=== PATIENT | female | born 1970 | race Caucasian/White ===

== ENCOUNTER 2020-11-26 08:03 | Outpatient (CLI) | payer OTHER, SELFPAY ==
--- NOTE | ~2020-11-26 | US_ITS ---
EXAMINATION: US pelvic complete w TV DATE: 11/26/2020 08:48 INDICATION: Menorrhagia TECHNIQUE: Multiple transabdominal and endovaginal sonographic images of the pelvis were obtained. COMPARISON: 06/11/2016 FINDINGS: The uterus measures 10.7 x 5.7 x 7.6 cm. There is a 3.1 x 3.4 x 3.3 cm isoechoic mass in th e posterior uterine body which has the appearance of an intramural fibroid. The endometrial complex m easures 8 mm. The left ovary is not visualized however no left adnexal abnormality is seen. The right ovary measures 3.8 x 2.4 x 2.2 cm. There is normal vascular flow in the right ovary. There is a trac e amount of likely physiologic free fluid in the pelvis. IMPRESSION: 1. Small uterine fibroid without significant change. Reviewed, dictated and finalized at location B.
== END 2020-11-26 08:04 | disposition home or self-care (01) ==
PROVIDERS: Visit Provider Obstetrics & Gynecology
DX: N92.0 Excessive and frequent menstruation with regular cycle (principal); D25.9 Leiomyoma of uterus, unspecified
CPT/HCPCS: 76830; 76856

== ENCOUNTER 2021-01-01 06:51 | Outpatient (CLI) | payer OTHER, SELFPAY ==
[2021-01-01 07:52] LABS: Alanine Aminotransferase 160 U/L (4-35); Albumin Level 4.4 g/dL (3.5-5.1); Alkaline Phosphatase 116 U/L (38-126); Anion Gap 3 mmol/L (8-16); Aspartate Amino Transferase 52 U/L (14-36); Bilirubin,Total 0.6 mg/dL (0.2-1.3); Blood Urea Nitrogen 9 mg/dL (7-17); Calcium 9.1 mg/dL (8.4-10.2); Carbon Dioxide 28 mmol/L (22-30); Chloride 109 mmol/L (98-107); Estimated Glomerular Filt Rate > 60; Glucose 95 mg/dL (65-110); Sodium 140 mmol/L (137-145)
[2021-01-04 04:38] LABS: Insulin Level Total 2.4 uIU/mL (<=19.6)
== END 2021-01-01 06:52 | disposition home or self-care (01) ==
DX: E66.01 Morbid (severe) obesity due to excess calories (principal); E63.9 Nutritional deficiency, unspecified; E88.9 Metabolic disorder, unspecified; Z83.3 Family history of diabetes mellitus
CPT/HCPCS: 36415; 80053; 83036; 83525

== ENCOUNTER 2021-01-27 15:14 | Outpatient (CLI) | payer OTHER, SELFPAY ==
--- NOTE | 2021-01-27 15:15 | ECG_ITS ---
Measurements Intervals [place] Rate: 77 P: 50 VA: 149 QRS: 21 QRSD: 94 T: 17 QT: 364 QTc: 413 Interpretive Statements SINUS RHYTHM WITH SINUS ARRHYTHMIA NORMAL ECG Electronically Signed On 01-27-2021 16:22:13 [employer]AG [employer] by Ramos Castillo D.O.
[2021-01-27 15:55] LABS: Hemoglobin 13.1 g/dL (12.0-15.0)
== END 2021-01-27 15:15 | disposition home or self-care (01) ==
LOC: ANHSURGERY 15:16
PROVIDERS: Visit Provider Obstetrics & Gynecology
DX: D25.9 Leiomyoma of uterus, unspecified (principal); I49.9 Cardiac arrhythmia, unspecified; Z01.818 Encounter for other preprocedural examination
CPT/HCPCS: 36415; 85014; 85018; 86850; 86900; 86901; 93005

== ENCOUNTER 2021-01-29 00:33 | Day surgery (SDC) | payer OTHER, SELFPAY ==
[2021-01-27 14:35] VITALS: BMI 31.7
--- NOTE | 2021-01-27 15:15 | PC.NURSE ---
Addendum entered by Amie West RN 01/27/21 15:20: WE WILL CALL YOU 01/28/21 AFTERNOON IF YOUR SURGERY TIME IS ADJUSTED!!! Original Note: Report to the Outpatient Waiting Room, entrance under the green pavilion located off [facility], at time __1000 on date _01/29/21 . OR Time: _1200 . - You and your visitor will be asked a series of questions to screen for COVID 19 for your protection. - A mask is required within the hospital. - Only one visitor is allowed at this time. Patient visitors will be guided where to wait when not with patient. Preoperative COVID Testing Requirements: No COVID Test needed if: (proof is required; if not received patient will have Rapid Test prior to entry)PLEASE BRING COPY OF VACCINATION CARD! - Patient has received COVID Vaccine at least 14 days prior to procedure date or - Patient has positive COVID test result within last 90 days of surgery date. COVID Test needed if above criteria is not met If not COVID vaccinated a COVID test must be conducted within 72 hours of surgery and patient is asked to isolate self from time of testing until procedure. You will go to the [facility] for your COVID testing. The [facility] is located at the corner of [address] [facility]. You will only be called if COVID results are positive and your surgeon may reschedule your elective surgery date. Patients may have clear liquids (water, carbonated beverages, clear teas, apple juice) until 3 hours prior to surgery with a maximum of 20 ounces. - No food from midnight until time of surgery - Infants may have breast milk until 4 hours before surgery, infant formula 6 hours prior to surgery. - Children will be allowed to drink immediately following surgery. If applicable, please bring a bottle or sippy cup to assist with drinking. Juice, water, soda, and popsicles are readily available. For infants on formula, please bring formula the day of surgery. Pacifiers are allowed. Take the following medications with a SIP of water the morning of surgery: __DULOXETINE, ALBUTEROL MDI, _ANXIETY MED IF YOU DESIRE Medications to discontinue per physician _SUPPLEMENTS AND CELEBREX Date to take last dose TODAY 01/27/21 Please no make-up, nail iranian, hairspray, perfume, deodorant, or body powder the day of surgery. No jewelry (including any body piercings) or valuables the day of surgery, leave them at home. Please take a shower or bath the night before, or the morning of, surgery with an antibacterial soap. Wear comfortable, loose fitting clothing. Children are encouraged to wear pajamas. - Jewelry must be removed prior to entering the operating room. Rings and piercings that are not removed may be cut off. - The hospital will not accept responsibility for valuables. - Please leave all valuables, including medications, at home the day of surgery. If you are going home after surgery, a licensed tow truck driver must drive you home. - NO public transportation without another adult. - We recommend that an adult stay with you for 24 hours following discharge. - We also recommend that you do not drive, make important decision, drink alcoholic beverages, or take any drugs that were not prescribed by your health care provider for at least 24 hours after your discharge time. For Pediatric surgeries, we recommend two adults accompany the child home (only one inside the building at this time). Follow any additional instructions given to you from your surgeon. Telephone instructions given to DRAKE and asked if any additional questions and then verbalized understanding. Patient advised to call surgeon office or pre surgery nurse liaison [phone] if any additional questions.
[2021-01-27 15:30] VITALS: BMI 31.4
[2021-01-29] VITALS (9 sets, daily range): BP systolic 110–142; BP diastolic 57–96; PULSE 68–95; RESP 13–18; TEMP 36.1–37; O2SAT 94–100
--- NOTE | 2021-01-29 10:29 | WPDANESEPPF ---
Anes - Initial Pre Proc Eval Procedure: Operation Date: 01/29/21 12:00 Proposed Procedures p Robotic Assisted Total Vaginal Hysterectomy with Bilateral Salpingectomy - Jose Adan MD Date/Time: 01/29/21 10:29 Surgeon: Jose Adan MD Pre Op Diagnosis: heavy bleeding, fibroids Patient Data Age: 50 Gender: F Height: 1.7 m Weight: 91 kg Allergies Allergy/AdvReac Type Severity Reaction Status Date / Time oxycodone Allergy Mild ITCHY SKIN Verified 01/27/21 15:33 adhesive Allergy Unknown BLISTERS; Verified 01/27/21 15:33 ITCHING ibuprofen Allergy Unknown Other Verified 01/27/21 15:33 Nut Tree Allergy Unknown MOUTH Uncoded 01/27/21 15:33 ITCHING WITH PECANS AND WALNUTS Home Medications Medication Instructions Recorded Confirmed Type celecoxib 100 mg capsule 100 mg PO DAILY cap 12/18/20 01/27/21 History cholecalciferol (vitamin D3) 2,000 mg PO DAILY 12/18/20 01/27/21 History duloxetine 60 mg capsule,delayed 60 mg PO DAILY 12/18/20 01/27/21 History release lorazepam 1 mg tablet 1 mg PO HS tablet 12/18/20 01/27/21 History mecobalamin (vitamin B12) 1,000 mcg PO DAILY 12/18/20 01/27/21 History multivitamin 1 tablet PO DAILY 12/18/20 01/27/21 History albuterol sulfate 2 puff INHALATION DAILY PRN 01/27/21 01/27/21 History calcium carb-mag ox-zinc gluc 1 tablet PO DAILY 01/27/21 01/27/21 History ferrous sulfate [Iron (ferrous 325 mg PO DAILY 01/27/21 01/27/21 History sulfate)] melatonin 5 mg SUBLINGUAL HS 01/27/21 01/27/21 History Patient hx anesthesia problems: none Family hx anesthesia problems: none Results Review: All pre-operative results and documents have been reviewed as part of the pre-operative evaluation. [facility] Past Medical History Medical History (Updated 01/29/21 @ 10:30 by Minesh Mcadams MD) Anxiety Asthma Surgical History Surgical History History of abdominoplasty 06/2015 History of section 02/22/98, 02/24/02 History of gastric surgery lap 02/2013 History of knee surgery R knee lateral release with scope 12/2008, L knee lateral release with scope 11/2009 History of laparoscopic cholecystectomy 11/2002 History of surgery uterine ablation 07/2016 Family History Family History Father Family history of congenital heart disease Family history of lung cancer Patient's father is Grandparent Family history of congenital heart disease Family history of osteoarthritis Other Family history of arthritis Family history of heart disease in male family member before age 55 Family history of kidney disease Hypertension Social History Social History Smoking status: Never smoker Alcohol intake: never Substance use: never Substance use type: does not use Living arrangements: with family Spiritual care concerns: No Anes - Eval Final PreProcedure Day of Procedure 01/29/21 10:29 Patient weight: obese Heart: regular rate and rhythm Lungs: clear to auscultation Airway: Mallampati scale class II Neurological: alert and oriented Last oral intake: >/= 8 hours ASA classification: III Emergent: no Anesthetic plan: proceed Anesthesia type and monitoring: general ETT and standard monitoring Results Review: All pre-operative results and documents have been reviewed as part of the pre-operative evaluation. Informed Consent: The patient's anesthetic plan and its attendant risks and benefits were discussed with the patient/family/POA. Questions were solicited and answers provided to the satisfaction of the patient/family/POA.
[2021-01-29] MEDS: LACTATED RINGERS 1,000 ML 30 ML IV CONT ×3 (10:40→14:33)
[2021-01-29] MEDS: ACETAMINOPHEN 500 MG TABLET 1000 MG PO (10:46)
[2021-01-29] MEDS: KETOROLAC 15 MG/ML VIAL (*BKC) IV PUSH (10:54)
--- NOTE | 2021-01-29 11:39 | PM.IMHP ---
H&P: HPI History of Present Illness Date/Time: 01/29/21 11:39 50 y/o who has had an endometrial ablation, but continues to have heavy, painful menses nonetheless. She has a 3.3 cm myoma noted on ultrasound. She desires definitive management with hysterectomy. Chief Complaint: Heavy periods Review of Systems Review of Systems: All systems reviewed & are unremarkable except as noted in HPI and below PMFSH Past Medical History Medical History Anxiety Asthma Surgical History Surgical History History of abdominoplasty 06/2015 History of section 02/22/98, 02/24/02 History of gastric surgery lap 02/2013 History of knee surgery R knee lateral release with scope 12/2008, L knee lateral release with scope 11/2009 History of laparoscopic cholecystectomy 11/2002 History of surgery uterine ablation 07/2016 Family History Family History Father Family history of congenital heart disease Family history of lung cancer Patient's father is Grandparent Family history of congenital heart disease Family history of osteoarthritis Other Family history of arthritis Family history of heart disease in male family member before age 55 Family history of kidney disease Hypertension Social History Social History Smoking status: Never smoker Alcohol intake: never Substance use: never Substance use type: does not use Living arrangements: with family Spiritual care concerns: No Meds Home Medications and Allergies Home Medications Medication Instructions Recorded Confirmed Type celecoxib 100 mg capsule 100 mg PO DAILY cap 12/18/20 01/29/21 History cholecalciferol (vitamin D3) 2,000 mg PO DAILY 12/18/20 01/29/21 History duloxetine 60 mg capsule,delayed 60 mg PO DAILY 12/18/20 01/29/21 History release lorazepam 1 mg tablet 1 mg PO HS tablet 12/18/20 01/29/21 History mecobalamin (vitamin B12) 1,000 mcg PO DAILY 12/18/20 01/29/21 History multivitamin 1 tablet PO DAILY 12/18/20 01/29/21 History albuterol sulfate 2 puff INHALATION DAILY PRN 01/27/21 01/29/21 History calcium carb-mag ox-zinc gluc 1 tablet PO DAILY 01/27/21 01/29/21 History ferrous sulfate [Iron (ferrous 325 mg PO DAILY 01/27/21 01/29/21 History sulfate)] melatonin 5 mg SUBLINGUAL HS 01/27/21 01/29/21 History Allergies Allergy/AdvReac Type Severity Reaction Status Date / Time oxycodone Allergy Mild ITCHY SKIN Verified 01/29/21 11:02 adhesive Allergy Unknown BLISTERS; Verified 01/29/21 11:02 ITCHING ibuprofen Allergy Unknown Other Verified 01/29/21 11:02 Nut Tree Allergy Unknown MOUTH Uncoded 01/29/21 11:02 ITCHING WITH PECANS AND WALNUTS Exam Const: Orientation/consciousness: patient oriented x3 Other: Well-developed, well-nourished female in no acute distress. Neck: Thyroid: thyroid normal Lymphatic: no lymphadenopathy noted (in neck, axilla or inguinal nodes) Resp: Effort & Inspection: normal respiratory effort Auscultation: clear to auscultation bilaterally Cardio: Rate: regular rate Rhythm: regular rhythm Heart sounds: S1 normal heart sound present and S2 normal heart sound present GI: Other: ABD: Soft, nontender, nondistended. No guarding or rebound tenderness. No hepatosplenomegaly. : General: Yes no CVA tenderness Other: External genitalia: normal female hair distribution, without lesion. Urethral meatus: no lesion, non prolapsed. Bladder: no mass, nontender Vagina: well-estrogenized, without lesion or discharge. No cystocele or rectocele. Cervix: no lesion or discharge. Uterus: small, anteverted, freely mobile, nontender Adnexa: no mass or tenderness. Anus/perineum: no lesions, nontender Back/Spine/Pelvis: Back: no CVA tend
--- NOTE | 2021-01-29 12:00 | WPDHPUPDATE1 ---
History and Physical Update Update Date/Time: 01/29/21 12:00 History and Physical has been reviewed, including an updated exam of the patient. There are NO changes in the patient's condition. Risks, benefits, and alternatives have been discussed and questions answered. Patient agrees to proceed with procedure.
[2021-01-29] MEDS: ceFAZolin 2 GM/D5W 50 ML 2 GM/50 ML BAG IVPB (12:05)
--- NOTE | 2021-01-29 14:20 | P.OP_ITS ---
Procedure Note - Detailed Date of Procedure 01/29/21 Pre-op Diagnosis Menometrorrhagia Dysmenorrhea Fibroid uterus Post-op Diagnosis same Procedure Performed Robotic assisted total vaginal hysterectomy, biopsy of posterior cul-de-sac, lysis of adhesions Surgeon Jose Adan MD Anesthesia general Findings Enlarged, fibroid uterus. Normal-appearing tubes and ovaries. Adhesions between omentum and anterior abdominal wall, dense adhesions between bladder and lower uterine segment. Multiple purple nodules suggestive of endometriosis implants in the posterior cul-de-sac. Description of Procedure The patient was taken to the operating room where general endotracheal anesthesia was administered. She was prepared and draped in the usual sterile fashion in the dorsal lithotomy position. The bladder was drained with Krueger catheter. The cervix was visualized and the anterior lip was grasped using a single-tooth tenaculum. The cervix was gently dilated using Hegar dilators. The RANDY 2 uterine manipulator was then placed and the tenaculum was removed. Gloves were changed and attention was turned to the abdomen. A supraumbilical skin incision was made with the scalpel. The Veress needle was advanced and pneumoperitoneum was administered using carbon dioxide gas. The bladeless trocar was then advanced. Intraperitoneal placement was confirmed using the laparoscope. Lateral ports and an orthopedic physician assistant port were all placed using bladeless trocars under direct laparoscopic visualization. She was placed in Trendelenburg position and the patient cart was docked. I assumed the console. The ureters were visualized bilaterally. The round ligament on the right was divided. The Fallopian tube was dissected off the ovary. The uteroovarian ligament was divided. The broad ligament was divided, skeletonizing the uterine artery on the right. The left side was similarly dissected. The bladder was meticulously dissected off the lower uterine segment and cervix. Colpotomy was performed circumferentially. The specimen was removed and passed off to be sent to pathology. An endometriosis nodule in the posterior cul-de-sac was sharply excised. The vaginal cuff was then reapproximated using 0 Vicryl in interrupted [id number] fashion. The pelvis was irrigated copiously using warmed normal saline. Rigorous hemostasis was assured. HemaDerm was applied to the vaginal cuff. The pedicles were inspected once again. The ports were then withdrawn and the gas was allowed to escape. The skin incisions were reapproximated using 4 0 Monocryl in interrupted subcuticular fashion. Dermaflex was applied externally. Sponge, lap, needle and instrument counts were correct. The patient was awakened and taken to the recovery room in stable condition. I was present and scrubbed through the entire procedure. Implants None Estimated Blood Loss 10 Drains Yes (krueger) Packing No Pathology yes (Uterus, cervix, bilateral Fallopian tubes, biopsy of peritoneum of posterior cul de sac) Complications None Condition stable Disposition PACU
[2021-01-29] MEDS: fentaNYL CITRATE INJ (*CRX) 100 MCG/2 ML VIAL 25 MCG IV PUSH ×4 (15:05→15:25)
--- NOTE | 2021-01-29 15:57 | PC.NURSE ---
This patient, Ofelia Graff, was received from PACU on 01/29/21 at 1557 per bed. Patient/family oriented to unit policies and routines
[2021-01-29] MEDS: DEXTROSE 5%/0.45% SOD CHL 1,000 ML 125 ML IV CONT (16:29)
[2021-01-29] MEDS: MORPHINE SULFATE (*CRX) 4 MG/ML INJ IV PUSH (16:30)
[2021-01-29] MEDS: SIMETHICONE 80 MG TAB.CHEW PO ×2 (19:17→23:35)
[2021-01-29] MEDS: KETOROLAC 30 MG/ML VIAL (*BKC) IV PUSH (19:18)
[2021-01-29] MEDS: MAG HYDROX/AL HYDROX/SIMETH 30 ML UDC PO (19:23)
[2021-01-29] MEDS: HYDROcodone/acetaminophen (*CRX) 5-325 MG TABLET 1 TAB PO ×2 (19:23→23:35)
[2021-01-29] MEDS: LORazepam (*CRX) 0.5 MG TABLET 1 MG PO (20:11)
[2021-01-29] MEDS: ENOXAPARIN 40 MG/0.4 ML SYRINGE SUB-Q (20:12)
[2021-01-30] MEDS: KETOROLAC 30 MG/ML VIAL (*BKC) IV PUSH (02:02)
[2021-01-30] MEDS: SIMETHICONE 80 MG TAB.CHEW PO ×4 (02:02→09:42)
[2021-01-30] MEDS: MAG HYDROX/AL HYDROX/SIMETH 30 ML UDC PO (02:39)
[2021-01-30] MEDS: HYDROcodone/acetaminophen (*CRX) 10-325 MG TABLET 1 TAB PO ×2 (02:39→05:44)
[2021-01-30 04:10] VITALS: BP 107/57; PULSE 72; RESP 16; TEMP 37.2; O2SAT 96
[2021-01-30 05:46] LABS: Basophils Absolute Auto 0.1 K/mm3 (0.0-0.1); Basophils Percent Auto 0.6 % (0.2-1.2); Eosinophils Absolute Auto 0.1 K/mm3 (0-0.3); Eosinophils Percent Auto 0.9 % (0-4.4); Hematocrit 33.4 % (37.0-47.0); Hemoglobin 11.3 g/dL (12.0-15.0); Immature Granulocyte Absolute 0.02 K/mm3 (0.00-0.031); Immature Granulocyte Percent A 0.2 % (0-0.5); Lymphocytes Absolute Auto 1.49 K/mm3 (0.9-3.2); Lymphocytes Percent Auto 17.5 % (18.3-44.2); Mean Corpuscular HGB Conc 33.8 g/dl (32-36); Mean Corpuscular Hemoglobin 31.4 pg (26-34); Mean Corpuscular Volume 92.8 fl (80-100); Mean Platelet Volume 9.3 fl (7.4-10.4); Monocytes Absolute Auto 0.8 K/mm3 (0.1-0.6); Monocytes Percent Auto 9.6 % (2.6-8.5); Neutrophils Absolute Auto 6.1 K/mm3 (1.3-6.7); Neutrophils Percent Auto 71.2 % (45.5-73.1); Platelet Count Result 220 k/mm3 (150-375); Red Cell Distribution Width 12.3 % (11.5-14.5); White Blood Count 8.5 K/mm3 (4.5-10.0)
[2021-01-30] MEDS: DULoxetine HCL 60 MG CAPSULE.DR PO (07:31)
--- NOTE | 2021-01-30 08:10 | WPDANESPN ---
Anes - Prog Note Post-Op Date/Time: 01/30/21 08:10 Cardiovascular status: normal Respiratory status: normal Airway patency: baseline Mental status: baseline Post-Op hydration status: normal Vital Signs: Last Vital Signs Temp 37.2 C 01/30/21 04:10 Pulse 72 01/30/21 04:10 Resp 16 01/30/21 04:10 BP 107/57 L 01/30/21 04:10 Pulse Ox 96 01/30/21 04:10 Pain Score (VAS): 0 I/O: Intake & Output 01/29/21 01/30/21 01/30/21 23:59 07:59 15:59 Intake Total 400 600 Output Total 950 1150 Balance -550 -550 Laboratory Tests 01/30/21 04:04 01/30/21 04:04 WBC 8.5 RBC 3.60 L Hgb 11.3 L Hct 33.4 L MCV 92.8 MCH 31.4 MCHC 33.8 RDW 12.3 Plt Count 220 MPV 9.3 Immature Gran % (Auto) 0.2 Neut % (Auto) 71.2 Lymph % (Auto) 17.5 L [place] % (Auto) 9.6 H Eos % (Auto) 0.9 Baso % (Auto) 0.6 Lymph # (Auto) 1.49 [place] # (Auto) 0.8 H Eos # (Auto) 0.1 Baso # (Auto) 0.1 Abs Immat Gran (auto) 0.02 Absolute Neuts (auto) 6.1 Absolute Nucleated RBC 0.0 Nucleated RBC % 0.0 Post-procedural complaints: none Patient Feedback: Patient satisfied with anesthetic care.
[2021-01-30] MEDS: HYDROcodone/acetaminophen (*CRX) 5-325 MG TABLET 1 TAB PO ×2 (08:42→09:42)
[2021-01-30 09:05] VITALS: BP 145/87; PULSE 71; RESP 16; TEMP 37.6; O2SAT 97
--- NOTE | 2021-01-30 09:05 | PM.GYNPNOP ---
LINOLEUM FLOOR LAYER - A/P Postoperative Procedures: Procedures Operation Date: 01/29/21 12:00 Actual Procedure Side Surgeon p Robotic Assisted Total Vaginal Hysterectomy with Bilateral Salpingectomy Bilateral Jose Aadn MD A: POD#1, doing well. P: Home to f/u 2 weeks. Time Spent With Patient Time with patient: less than 15 minutes LINOLEUM FLOOR LAYER- PN:Subj Post-Op Subjective Date/time seen: 01/30/21 09:05 Interval history: Pain OK. Tolerating diet. Voiding. Would like to go home. Exam Narrative: AVSS I/O OK ABD soft, nontender. Incisions c/d/i. EXT nontender LINOLEUM FLOOR LAYER - PN: Obj Data Vital Signs Vital Signs: Vital Signs - 24 hr 01/29/21 14:33 01/29/21 14:45 01/29/21 15:00 Temperature 36.1 C L Pulse Rate 74 95 88 Respiratory Rate 13 16 18 Blood Pressure 110/57 L 131/96 H 122/57 L Pulse Oximetry 100 99 94 01/29/21 15:15 01/29/21 15:30 01/29/21 15:45 Temperature Pulse Rate 75 73 87 Respiratory Rate 14 14 16 Blood Pressure 124/58 L 131/71 118/64 Pulse Oximetry 94 97 96 01/29/21 17:33 01/29/21 19:30 01/29/21 23:30 Temperature 36.2 C L 36.4 C 37.0 C Pulse Rate 77 68 78 Respiratory Rate 18 16 16 Blood Pressure 116/64 142/81 H 122/72 Pulse Oximetry 94 100 98 01/30/21 04:10 Temperature 37.2 C Pulse Rate 72 Respiratory Rate 16 Blood Pressure 107/57 L Pulse Oximetry 96 Intake/Output Intake/Output: Intake & Output 01/27/21 01/28/21 01/29/21 01/30/21 23:59 23:59 23:59 23:59 Intake Total 1800 600 Output Total 950 1150 Balance 850 -550 Meds/Results Medications: Active Medications Generic Name Dose Route Start Last Admin Trade Name Freq PRN Reason Stop Dose Admin Hydrocodone Bitart/Acetaminophen 1 tab 01/29/21 15:50 01/30/21 08:42 Hydrocodone/Acetaminophen (*Crx) 5-325 Mg Tablet PO 1 tab Q3H PRN Administration Pain Rated 5 or Less Hydrocodone Bitart/Acetaminophen 1 tab 01/29/21 15:50 01/30/21 05:44 Hydrocodone/Acetaminophen (*Crx) 10-325 Mg Tablet PO 1 tab Q3H PRN Administration Pain Rated 6 or Greater Al Hydrox/Mg Hydrox/Simethicone 30 ml 01/29/21 17:52 01/30/21 02:39 Mag Hydrox/Al Hydrox/Simeth 30 Ml Udc PO 30 ml Q6H PRN Administration Indigestion Albuterol 2 puff 01/29/21 15:50 Albuterol Sulfate (*Sp) Aerosol 1 Puff INHALATION DAILY PRN Shortness Of Breath Duloxetine HCl 60 mg 01/30/21 09:00 01/30/21 07:31 Duloxetine Hcl 60 Mg Capsule.Dr PO 60 mg DAILY JAY Administration Enoxaparin Sodium 40 mg 01/29/21 21:00 01/29/21 20:12 Enoxaparin 40 Mg/0.4 Ml Syringe SUB-Q 40 mg HS JAY Administration Dextrose/Sodium Chloride 1,000 mls @ 125 mls/hr 01/29/21 15:50 01/30/21 01:20 Dextrose 5% Sodium Chloride 0.45% IV CONT Not Given .Q8H JAY Ketorolac Tromethamine 30 mg 01/29/21 18:19 01/30/21 02:02 Ketorolac 30 Mg/Ml Vial (*Bkc) IV PUSH 30 mg Q6H PRN Administration Pain Rated 4-6 Lorazepam 1 mg 01/29/21 21:00 01/29/21 20:11 Lorazepam (*Crx) 0.5 Mg Tablet PO 1 mg HS JAY Administration Metoclopramide HCl 10 mg 01/29/21 15:50 Metoclopramide Hcl Inj 10 Mg/2 Ml Vial IV PUSH Q6H PRN Nausea Morphine Sulfate 4 mg 01/29/21 15:50 01/29/21 16:30 Morphine Sulfate (*Crx) 4 Mg/Ml Inj IV PUSH 4 mg Q4H PRN Administration Pain Rated 7-10 Naloxone HCl 0.1 mg 01/29/21 15:50 Naloxone Hcl 0.4 Mg/Ml Vial IV PUSH Q2M PRN Respiratory rate less than 10 Ondansetron HCl 4 mg 01/29/21 15:50 Ondansetron Inj 4 Mg/2 Ml Vial IV PUSH Q6H PRN Nausea Simethicone 80 mg 01/29/21 15:50 01/30/21 07:30 Simethicone 80 Mg Tab.Chew PO 80 mg Q2H PRN Administration Gas Labs CBC & Chem 7: 01/30/21 04:04 Labs: Laboratory Results - last 24 hr 01/30/21 04:04 WBC 8.5 RBC 3.60 L Hgb 11.3 L Hct 33.4 L MCV 92.8 MCH 31.4 MCHC 33.8 RDW 12.3 Plt Count 220 MPV 9.3 Immature Gran % (Auto) 0.2 Neut
--- NOTE | 2021-01-30 09:06 | PM.DS ---
DS: Admitting Diagnosis Discharge Date 01/30/21 Admitting Diagnosis Menometrorrhagia Dysmenorrhea Fibroid uterus DS: Discharge Diagnosis Discharge Diagnosis (1) Fibroid uterus: Code(s): D25.9 - Leiomyoma of uterus, unspecified Status: Acute (2) Dysmenorrhea: Code(s): N94.6 - Dysmenorrhea, unspecified Status: Acute (3) Menometrorrhagia: Code(s): N92.1 - Excessive and frequent menstruation with irregular cycle Status: Acute DS: Summary Hospital Course Hospital Course: Admitted on date of scheduled surgery. Please see op note. Doing well on POD1 and able to go home. Time Spent with Patient Time attestation: Total time spent providing and/or coordinating discharge services: DS: Data Data Completed and Pending Pending studies at discharge: Pending at discharge 01/29/21 13:52 Surgical [PTH] Routine Labs on day of discharge: Labs from last 24 hours 01/30/21 04:04 WBC 8.5 RBC 3.60 L Hgb 11.3 L Hct 33.4 L MCV 92.8 MCH 31.4 MCHC 33.8 RDW 12.3 Plt Count 220 MPV 9.3 Immature Gran % (Auto) 0.2 Neut % (Auto) 71.2 Lymph % (Auto) 17.5 L [place] % (Auto) 9.6 H Eos % (Auto) 0.9 Baso % (Auto) 0.6 Lymph # (Auto) 1.49 [place] # (Auto) 0.8 H Eos # (Auto) 0.1 Baso # (Auto) 0.1 Abs Immat Gran (auto) 0.02 Absolute Neuts (auto) 6.1 Absolute Nucleated RBC 0.0 Nucleated RBC % 0.0 Discharge Plan Discharge Patient Disposition: Home, Self-Care Discharge Instructions: Call or return if temperature above 100.4? F, increased abdominal pain, increased vaginal bleeding or any new problems. Stand Alone Forms: General Discharge Instructions Follow-up/Referrals: Jose Adan MD [Physician] - 2 Weeks Discharge Medications: New hydrocodone-acetaminophen 5-325 mg tablet 1 - 2 tablet PO Q6H PRN (Reason: pain) Qty: 30 RF: 0 Continued duloxetine 60 mg capsule,delayed release(DR/EC) 60 mg PO DAILY RF: 0 celecoxib [Celebrex] 100 mg capsule 100 mg PO DAILY RF: 0 lorazepam 1 mg tablet 1 mg PO HS RF: 0 multivitamin Tablet 1 tablet PO DAILY RF: 0 cholecalciferol (vitamin D3) 2,000 mg PO DAILY RF: 0 mecobalamin (vitamin B12) 1,000 mcg PO DAILY RF: 0 melatonin 5 mg Tablet, Sublingual 5 mg SUBLINGUAL HS RF: 0 calcium carb-mag ox-zinc gluc 333-133-5 mg Tablet 1 tablet PO DAILY RF: 0 albuterol sulfate 90 mcg/actuation HFA aerosol inhaler 2 puff INHALATION DAILY PRN (Reason: SOB) RF: 0 Discontinued ferrous sulfate [Iron (ferrous sulfate)] 325 mg (65 mg iron) Tablet 325 mg PO DAILY RF: 0
== END 2021-01-30 11:05 | disposition home or self-care (01) ==
LOC: ANHSURGERY 10:05 → ANHOB2 17:20
PROVIDERS: Visit Provider Obstetrics & Gynecology
PROC: (CPT 58552; principal; 2021-01-29 12:00)
DX: N92.1 Excessive and frequent menstruation with irregular cycle (principal); N94.6 Dysmenorrhea, unspecified; N73.6 Female pelvic peritoneal adhesions (postinfective); N80.3 Endometriosis of pelvic peritoneum; D25.1 Intramural leiomyoma of uterus; J45.909 Unspecified asthma, uncomplicated; F41.9 Anxiety disorder, unspecified; Z79.51 Long term (current) use of inhaled steroids; E66.9 Obesity, unspecified; Z68.31 Body mass index [BMI] 31.0-31.9, adult
CPT/HCPCS: 58552; S2900; 36415; 85025; 88305; 88307; 99199; A9270; J0330; J0690; J1100; J1170; J1650; J1885; J2250; J2270; J2704; J2710; J3010; J7030; J7120

== ENCOUNTER → 2021-02-12 13:52 | Outpatient (REF) | payer OTHER, SELFPAY | LOC: ANHLAB 13:52 | PROVIDERS: Visit Provider Surgery Plastic and Reconstructive Surgery | DX: R22.9 Localized swelling, mass and lump, unspecified (principal) | CPT/HCPCS: 88304 ==

== ENCOUNTER 2021-05-06 08:02 | Outpatient (RCR) | payer OTHER, SELFPAY ==
[2021-05-06 08:06] VITALS: BMI 33.0
[2021-05-06 08:08] VITALS: BMI 33.0
== END 2021-07-03 14:19 | disposition home or self-care (01) ==
LOC: ANHDMC 08:02
DX: Z68.32 Body mass index [BMI] 32.0-32.9, adult (principal); Z71.3 Dietary counseling and surveillance
CPT/HCPCS: 97802

== ENCOUNTER 2021-06-14 07:01 | Outpatient (CLI) | payer OTHER, SELFPAY ==
[2021-06-14 12:00] LABS: Basophils Absolute Auto 0.1 K/mm3 (0.0-0.1); Basophils Percent Auto 1.3 % (0.2-1.2); Eosinophils Absolute Auto 0.2 K/mm3 (0-0.3); Hematocrit 38.2 % (37.0-47.0); Hemoglobin 12.8 g/dL (12.0-15.0); Immature Granulocyte Absolute 0.01 K/mm3 (0.00-0.031); Immature Granulocyte Percent A 0.2 % (0-0.5); Lymphocytes Absolute Auto 1.64 K/mm3 (0.9-3.2); Lymphocytes Percent Auto 25.8 % (18.3-44.2); Mean Corpuscular HGB Conc 33.5 g/dl (32-36); Mean Corpuscular Hemoglobin 31.3 pg (26-34); Mean Corpuscular Volume 93.4 fl (80-100); Mean Platelet Volume 8.6 fl (7.4-10.4); Monocytes Absolute Auto 0.5 K/mm3 (0.1-0.6); Monocytes Percent Auto 7.9 % (2.6-8.5); Neutrophils Absolute Auto 3.9 K/mm3 (1.3-6.7); Neutrophils Percent Auto 61.8 % (45.5-73.1); Platelet Count Result 296 k/mm3 (150-375); Red Blood Count 4.09 M/mm3 (4.2-5.4); Red Cell Distribution Width 12.4 % (11.5-14.5); White Blood Count 6.4 K/mm3 (4.5-10.0)
[2021-06-14 12:08] LABS: Alanine Aminotransferase 20 U/L (4-35); Albumin Level 4.3 g/dL (3.5-5.1); Alkaline Phosphatase 117 U/L (38-126); Anion Gap 8 mmol/L (8-16); Aspartate Amino Transferase 28 U/L (14-36); Bilirubin,Total 0.3 mg/dL (0.2-1.3); Blood Urea Nitrogen 11 mg/dL (7-17); Calcium 8.4 mg/dL (8.4-10.2); Carbon Dioxide 24 mmol/L (22-30); Chloride 106 mmol/L (98-107); Cholesterol 180 mg/dL (0-200); Estimated Glomerular Filt Rate > 60; Glucose 105 mg/dL (65-110); HDL Direct 56 mg/dL; Sodium 138 mmol/L (137-145); Triglycerides 156 mg/dL (<150)
[2021-06-14 12:19] LABS: LDL Cholesterol Direct 83 mg/dL
[2021-06-14 12:49] LABS: Vitamin D 25 Hydroxy 49.3 ng/mL
[2021-06-14 13:10] LABS: Parathyroid Intact 98.5 pg/mL (7.5-53.5)
[2021-06-14 16:30] LABS: Thyroid Stimulating Hormone Reflex 0.787 uIU/mL (0.465-4.68)
[2021-06-14 23:27] LABS: Iron 91 ug/dL (37-170); Percent Iron Saturation 29 % (20-50)
== END 2021-06-14 07:02 | disposition home or self-care (01) ==
LOC: ANHOBOP 07:03
PROVIDERS: Visit Provider Obstetrics & Gynecology
DX: Z98.84 Bariatric surgery status (principal); E55.9 Vitamin D deficiency, unspecified; Z00.00 Encounter for general adult medical examination without abnormal findings
CPT/HCPCS: 36415; 80053; 80061; 82306; 82607; 82728; 83540; 83550; 83970; 84443; 85025

== ENCOUNTER 2021-07-22 08:34 | Emergency (ER) | payer OTHER, SELFPAY ==
[2021-07-22] VITALS (7 sets, daily range): BP systolic 125–148; BP diastolic 65–89; PULSE 74–87; RESP 16–18; TEMP 36.9; O2SAT 98–100
--- NOTE | ~2021-07-22 | CT_ITS ---
EXAMINATION: CT abdomen pelvis wo con DATE: 07/22/2021 09:35 INDICATION: Right flank pain TECHNIQUE: Computed tomography (CT) of the abdomen and pelvis was performed without intravenous contr ast. Automated exposure control and iterative reconstruction technique were employed. The dose-length product was 416.14 mGy-cm. COMPARISON: None FINDINGS: Lung bases are clear. Heart size is normal. No pericardial or pleural effusion. Postoperative change of prior Juan Carlos-en-Y gastric bypass procedure. There are also cholecystectomy clips the gallbladder fos sa and dropped clip at the foramen of Randall on the lateral upper pole of the right kidney. Liver, s pleen, pancreas and bilateral adrenal glands are normal. 5 x 3 mm stone at a lower pole calyx of the right kidney. Left kidney and ureters are normal with no additional urolithiasis. Bladder is normal. The uterus is not identified and has likely been surgically resected. Retained contrast material with in the normal appendix. No bowel obstruction. Small amount of likely physiologic free fluid in the de ep pelvis. No abscess or free intraperitoneal gas. No pathologically enlarged abdominal or pelvic lym phadenopathy. Mild scattered degenerative skeletal changes in the spine and pelvis. IMPRESSION: 1. 5 x 3 mm nonobstructing right renal stone. 2. Postoperative change of prior cholecystectomy, hysterectomy and Juan Carlos-en-Y gastric bypass. Reviewed, dictated and finalized at location A. IMPRESSION: 1. 5 x 3 mm nonobstructing right renal stone. 2. Postoperative change of prior cholecystectomy, hysterectomy and Juan Carlos-en-Y ga stric bypass.
--- NOTE | ~2021-07-22 | XR_ITS ---
EXAMINATION: XR abdomen/kub 1V INDICATION: Abdominal pain TECHNIQUE: Supine views of the abdomen were obtained on 2 radiographs. COMPARISON: CT from today FINDINGS: Bowel gas obscures visualization of the right kidney stone described on CT. There are phleb oliths of the pelvis. There are no dilated loops of bowel. Cholecystectomy clips are noted. IMPRESSION: 1. No radiographic correlate for the patient's symptoms. Reviewed, dictated and finalized at location A.
--- NOTE | 2021-07-22 08:56 | ED.BACK ---
HPI - Back Pain/Injury General Chief Complaint: Back Pain/Injury Stated Complaint: back pain Time Seen by Provider: 07/22/21 08:38 Source: patient and RN notes reviewed Mode of arrival: ambulatory Limitations: no limitations History of Present Illness HPI Narrative: 50-year-old female presenting to the emergency department for evaluation of acute onset of right flank pain. Patient states when she got to work at 6 she was not having any significant symptoms but then began to develop some worsening right flank pain. Patient states at approximately 715 the right flank pain significantly worsened. Patient states that she has no chest pain but does have some shortness of breath due to the pain. Patient is restless in the bed. Does report associated nausea. Patient denies any radiation of the pain. Patient does have prior history of gastric bypass and abdominoplasty. Patient denies any prior history of kidney stones. Related Data Home Medications Medication Instructions Recorded Confirmed celecoxib 100 mg capsule 100 mg PO DAILY cap 12/18/20 01/29/21 cholecalciferol (vitamin D3) 2,000 mg PO DAILY 12/18/20 01/29/21 duloxetine 60 mg capsule,delayed 60 mg PO DAILY 12/18/20 01/29/21 release lorazepam 1 mg tablet 1 mg PO HS tablet 12/18/20 01/29/21 mecobalamin (vitamin B12) 1,000 mcg PO DAILY 12/18/20 01/29/21 multivitamin 1 tablet PO DAILY 12/18/20 01/29/21 albuterol sulfate 2 puff INHALATION DAILY PRN 01/27/21 01/29/21 calcium carb-mag ox-zinc gluc 1 tablet PO DAILY 01/27/21 01/29/21 melatonin 5 mg SUBLINGUAL HS 01/27/21 01/29/21 Allergies Allergy/AdvReac Type Severity Reaction Status Date / Time oxycodone Allergy Mild ITCHY SKIN Verified 07/22/21 08:46 adhesive Allergy Unknown BLISTERS; Verified 07/22/21 08:46 ITCHING ibuprofen Allergy Unknown Other Verified 07/22/21 08:46 Nut Tree Allergy Unknown MOUTH Uncoded 07/22/21 08:46 ITCHING WITH PECANS AND WALNUTS Review of Systems Review of Systems: CONSTITUTIONAL: Denies fever, chills, or sweats. EYES: Denies visual changes, redness, or discharge. ENT: Denies rhinorrhea, congestion, sore throat, or otalgia. CARDIOVASCULAR: Denies chest pain, palpitations, or edema. RESPIRATORY: Denies cough or dyspnea. GASTROINTESTINAL: See HPI GENITOURINARY: Denies dysuria or hematuria. SKIN: Denies rash or itching. MUSCULOSKELETAL: Denies back pain, joint pain, or myalgia. NEUROLOGIC: Denies headache, numbness, or weakness. [facility] Past Medical History Medical History Anxiety Asthma Surgical History Surgical History History of abdominoplasty 06/2015 History of section 02/22/98, 02/24/02 History of gastric surgery lap 02/2013 History of knee surgery R knee lateral release with scope 12/2008, L knee lateral release with scope 11/2009 History of laparoscopic cholecystectomy 11/2002 History of surgery uterine ablation 07/2016 Family History Family History Father Family history of congenital heart disease Family history of lung cancer Patient's father is Grandparent Family history of congenital heart disease Family history of osteoarthritis Other Family history of arthritis Family history of heart disease in male family member before age 55 Family history of kidney disease Hypertension Social History Social History Smoking status: Never smoker Alcohol intake: never Substance use: never Substance use type: does not use Spiritual care concerns: No Exam Narrative: APPEARANCE: Well appearing, no pain, no distress, well-nourished. HEAD: normocephalic, atraumatic. EYES: PERRLA/EOMI, conjunctivae clear. NOSE: Normal no drainage NECK: Supple. No adenopathy, no jose carlos
--- NOTE | 2021-07-22 08:56 | ECG_ITS ---
Measurements Intervals [place] Rate: 71 P: -17 ME: 125 QRS: 44 QRSD: 93 T: 29 QT: 395 QTc: 430 Interpretive Statements SINUS RHYTHM WITH SINUS ARRHYTHMIA NORMAL ECG Electronically Signed On 07-22-2021 9:20:14 CDT by Ramos Castillo D.O.
[2021-07-22 08:57] LABS: Basophils Absolute Auto 0.1 K/mm3 (0.0-0.1); Basophils Percent Auto 1.5 % (0.2-1.2); Eosinophils Absolute Auto 0.2 K/mm3 (0-0.3); Eosinophils Percent Auto 2.8 % (0-4.4); Hematocrit 40.2 % (37.0-47.0); Hemoglobin 13.2 g/dL (12.0-15.0); Immature Granulocyte Absolute 0.01 K/mm3 (0.00-0.031); Immature Granulocyte Percent A 0.2 % (0-0.5); Lymphocytes Absolute Auto 1.81 K/mm3 (0.9-3.2); Lymphocytes Percent Auto 33.4 % (18.3-44.2); Mean Corpuscular HGB Conc 32.8 g/dl (32-36); Mean Corpuscular Hemoglobin 30.6 pg (26-34); Mean Corpuscular Volume 93.1 fl (80-100); Mean Platelet Volume 8.7 fl (7.4-10.4); Monocytes Absolute Auto 0.5 K/mm3 (0.1-0.6); Monocytes Percent Auto 8.9 % (2.6-8.5); Neutrophils Absolute Auto 2.9 K/mm3 (1.3-6.7); Neutrophils Percent Auto 53.2 % (45.5-73.1); Platelet Count Result 277 k/mm3 (150-375); Red Blood Count 4.32 M/mm3 (4.2-5.4); Red Cell Distribution Width 12.3 % (11.5-14.5); White Blood Count 5.4 K/mm3 (4.5-10.0)
[2021-07-22 08:58] LABS: Appearance Urine Cloudy (Clear); Bilirubin Urine Negative (Negative); Color Urine Yellow (Yellow); Glucose Urine UA Negative (Negative); Ketones Urine Negative (Negative); Leukocyte Esterase Ur Negative LEU/UL (Negative); Nitrate Urine Positive (Negative); Protein Urine Negative (Negative); Urobilinogen Urine 0.2 mg/dL (<2.0); pH Urine 8.5 (5.0-9.0)
[2021-07-22] MEDS: HYDROmorphone HCL INJ (*CRX) 1 MG/ML SYR IV PUSH ×2 (09:02→11:43)
[2021-07-22] MEDS: ONDANSETRON INJ 4 MG/2 ML VIAL IV PUSH (09:02)
[2021-07-22 09:04] LABS: Bacteria Urine Trace /hpf; Mucus Urine Rare /lpf; Squamous Epithelial Cell Urine Many /hpf (Few)
[2021-07-22 09:08] LABS: Add Urine Microscopic? YES; Blood Urine Trace-Intact (Negative)
[2021-07-22 09:09] LABS: Alanine Aminotransferase 35 U/L (4-35); Albumin Level 4.7 g/dL (3.5-5.1); Alkaline Phosphatase 112 U/L (38-126); Anion Gap 8 mmol/L (8-16); Aspartate Amino Transferase 41 U/L (14-36); Bilirubin,Total 0.6 mg/dL (0.2-1.3); Blood Urea Nitrogen 10 mg/dL (7-17); Calcium 8.9 mg/dL (8.4-10.2); Carbon Dioxide 24 mmol/L (22-30); Chloride 106 mmol/L (98-107); Estimated CRCL calculation 113 ml/min; Estimated Glomerular Filt Rate > 60; Glucose 100 mg/dL (65-110); Lipase 99 U/L (23-300); Potassium 4.2 mmol/L (3.4-5.0); Sodium 138 mmol/L (137-145)
[2021-07-22] MEDS: FAMOTIDINE 20 MG/2 ML VIAL IV PUSH (09:52)
[2021-07-22] MEDS: SODIUM CHLORIDE 0.9% IV 1,000 ML 999 ML IV CONT (11:04)
== END 2021-07-22 13:12 | disposition home or self-care (01) ==
PROVIDERS: Emergency Provider Emergency Medicine
DX: N30.01 Acute cystitis with hematuria (principal); J45.909 Unspecified asthma, uncomplicated; F41.9 Anxiety disorder, unspecified; Z98.84 Bariatric surgery status; N20.0 Calculus of kidney
CPT/HCPCS: 36415; 74018; 74176; 80053; 81001; 83690; 85025; 87077; 87086; 87186; 93005; 96361; 96374; 96375; 96376; 99284; J0696; J1170; J2405; J7030

== ENCOUNTER 2021-09-23 10:24 | Outpatient (CLI) | payer OTHER, SELFPAY ==
--- NOTE | ~2021-09-23 | US_ITS ---
US axilla LT 09/23/2021 11:16 Indication: Palpable left axillary abnormality. Previous resection of left axillary lipoma. Procedure: High-resolution Limited ultrasound of the left axilla Comparison: No prior studies for comparison. Findings: In the area of palpable concern in the left axilla there is an oval hypoechoic mass measuri ng 2.9 x 1 cm x 3.3. There is a complex hypoechoic segments of the mass measuring 1.7 x 1.6 x 0.9 cm. No significant internal vascularity. There is parallel orientation. Impression: 1: Complex left axillary mass measuring up to 3.3 cm with an associated internal hypoechoic region me asuring up to 1.7 cm. Ultrasound-guided biopsy recommended to exclude malignancy. Consider correlatio n with diagnostic bilateral mammogram given that no prior mammogram has been performed at this [facility] since 09/28/2016. Reviewed, dictated and finalized at location A. Impression: 1: Complex left axillary mass measuring up to 3.3 cm with an associated interna l hypoechoic region measuring up to 1.7 cm. Ultrasound-guided biopsy recommende d to exclude malignancy. Consider correlation with diagnostic bilateral mammogr am given that no prior mammogram has been performed at this institution since .
--- NOTE | ~2021-09-23 | US_ITS ---
EXAMINATION: US soft tissue LE LT DATE: 09/23/2021 11:17 INDICATION: Left thigh pain. Possible soft tissue mass. TECHNIQUE: Grayscale and Doppler ultrasound images of the left posterior lateral thigh were obtained. COMPARISON: None. FINDINGS: No solid or cystic mass. No soft tissue fluid collection. No sonographic abnormality in the area of clinical concern. IMPRESSION: 1. No sonographic finding that would explain the patient's symptoms in the posterior lateral left th igh. Reviewed, dictated and finalized at location K. IMPRESSION: 1. No sonographic finding that would explain the patient's symptoms in the pos terior lateral left thigh.
== END 2021-09-23 10:25 | disposition home or self-care (01) ==
LOC: ANHIMG 10:25
PROVIDERS: Visit Provider Surgery Plastic and Reconstructive Surgery
DX: R22.9 Localized swelling, mass and lump, unspecified (principal); M79.652 Pain in left thigh
CPT/HCPCS: 76882

== ENCOUNTER 2021-10-15 11:01 | Outpatient (CLI) | payer OTHER, SELFPAY ==
--- NOTE | ~2021-10-15 | US_ITS ---
EXAMINATION: US_BXSTAXLIMG_US DATE: 10/15/2021 13:24 INDICATION: Left axillary mass TECHNIQUE: The procedure including the risks and benefits was discussed with the patient. Risks discu ssed included bleeding and infection. The patient understood the risks and agreed to proceed. The sk in overlying the right axilla was prepped and draped in usual sterile fashion. Anesthetic was admini stered with 1% lidocaine subcutaneously. An 14 gauge core biopsy needle was advanced under continuou s ultrasound observation to the lesion of interest. 4 core biopsy specimens were obtained. The need le was removed and the entry site was cleaned and dressed. Post procedure ultrasound demonstrated no hemorrhage. FINDINGS: Ultrasound images demonstrate a single advanced into the 4.2 x 0.9 cm lenticular mass of co ncern at the left axilla. IMPRESSION: 1. Successful Ultrasound-guided biopsy of the 4.2 x 0.9 cm left axillary mass of concern. Reviewed, dictated and finalized at location A. IMPRESSION: 1. Successful Ultrasound-guided biopsy of the 4.2 x 0.9 cm left axillary mass o f concern.
== END 2021-10-15 11:02 | disposition home or self-care (01) ==
PROVIDERS: Visit Provider Obstetrics & Gynecology
DX: N63.20 Unspecified lump in the left breast, unspecified quadrant (principal)
CPT/HCPCS: 20999; 76942; 88305

== ENCOUNTER 2021-10-20 07:02 | Outpatient (CLI) | payer OTHER, SELFPAY ==
--- NOTE | ~2021-10-20 | MR_ITS ---
EXAMINATION: MR ankle RT wo con DATE: 10/20/2021 08:40 INDICATION: Plantar fasciitis in the right foot TECHNIQUE: Magnetic resonance imaging (MRI) of the right ankle was performed without intravenous cont rast. Sequences included sagittal, coronal, and axial proton-density weighted fast spin echo without and with fat saturation. COMPARISON: None. FINDINGS: Medial ankle ligaments: Deep and superficial deltoid ligaments as well as the spring ligament are normal. Lateral ankle ligaments: The anterior and posterior inferior tibiofibular ligaments are normal. The anterior talofibular, calc aneofibular and posterior talofibular ligaments are normal. Tendons: Small plantar calcaneal spur at the calcaneal insertion of the otherwise normal Achilles tendon. The peroneus longus and brevis tendons are normal. The tibialis anterior and extensor hallucis longus and extensor digitorum longus tendons are normal. The tibialis posterior, flexor digitorum longus and fl exor hallucis longus tendons are normal. Plantar fascia: Small plantar calcaneal spur with thickening and increased signal of the proximal plantar aponeurosis consistent with moderate plantar fasciitis. There is a small partial-thickness tear involving portio n of the medial side of the central component of the plantar aponeurosis. The torn portion of the ten don which is without significant retraction can be best appreciated on sagittal series 5 & 6, image 1 4 The majority of the cross-sectional area of the plantar aponeurosis remains intact. Bones/other: Bone alignment is normal. No fracture or pathologic marrow replacing process. There is mild osteoarth ritis at the ankle joint with deep chondral ulceration and focal underlying subarticular edema-like s ignal change along the posterior medial rim of the talar dome. Mild osteoarthritis at the subtalar, t alonavicular and several tarsal metatarsal joints. Additional high-grade chondromalacia with underlyi ng subarticular cystic change at the base of the fourth metatarsal. Minimal subarticular edema at the middle facet of the subtalar joint. Fluid: Physiologic amount fluid in the joint spaces. No bursitis or other abnormal fluid collections. IMPRESSION: 1. Moderate acute on chronic plantar fasciitis with small partial tear at the origin of the medial si de of the central component of the plantar aponeurosis. 2. Mild polyarticular osteoarthritis at the right ankle, mid and hindfoot with regions of high-grade chondromalacia along the talar dome and base of the fourth metatarsal as detailed above. Reviewed, dictated and finalized at location A. IMPRESSION: 1. Moderate acute on chronic plantar fasciitis with small partial tear at the o rigin of the medial side of the central component of the plantar aponeurosis. 2. Mild polyarticular osteoarthritis at the right ankle, mid and hindfoot with regions of high-grade chondromalacia along the talar dome and base of the fourt h metatarsal as detailed above.
== END 2021-10-20 07:03 | disposition home or self-care (01) ==
PROVIDERS: Visit Provider Podiatrist Foot & Ankle Surgery
DX: M72.2 Plantar fascial fibromatosis (principal); M19.071 Primary osteoarthritis, right ankle and foot
CPT/HCPCS: 73721

== ENCOUNTER 2021-12-13 15:18 | Emergency (ER) | payer OTHER, SELFPAY ==
--- NOTE | 2021-12-13 15:20 | ED.HA ---
HPI - Headache General Chief Complaint: Headache Stated Complaint: Headache,Diarrhea Time Seen by Provider: 12/13/21 15:20 Source: patient Mode of arrival: ambulatory Limitations: no limitations History of Present Illness HPI Narrative: Mrs. Graff is a 51-year-old female patient presenting to the clinic today with complaints of headache x2 days and diarrhea once today. She reports she has had recent exposure to someone with COVID and she did a rapid at home test today and it was negative. History of migraine headaches and states that this feels as though with the migraine. She does have photosensitivity with nausea as well. She reports her pain currently is 7 out of 10. She has taken some sinus medication and Tylenol without relief. Has a history of gastric bypass surgery. She reports that her pain is in the front of her head and radiating towards the back. She has been under a lot of stress here lately. Related Data Home Medications Medication Instructions Recorded Confirmed celecoxib 100 mg capsule (Celebrex) 100 mg PO DAILY 12/18/20 12/13/21 duloxetine 60 mg capsule,delayed 60 mg PO DAILY 12/18/20 12/13/21 release multivitamin 1 tablet PO DAILY 12/18/20 12/13/21 albuterol sulfate 90 mcg/actuation 2 puff inhalation DAILY PRN SOB 01/27/21 12/13/21 aerosol inhaler melatonin 5 mg sublingual tablet 5 mg sublingual HS 01/27/21 12/13/21 dextroamphetamine-amphetamine 20 20 mg PO DAILY 12/13/21 12/13/21 mg tablet lorazepam 1 mg tablet 1 mg PO PRN PRN Anxiety 12/13/21 12/13/21 tirzepatide 5 mg/0.5 mL 5 mg subcut WEEKLY 12/13/21 12/13/21 subcutaneous pen injector (Alessandrounpawan) Allergies Allergy/AdvReac Type Severity Reaction Status Date / Time adhesive AdvReac Mild BLISTERS; Verified 12/13/21 15:21 ITCHING oxycodone AdvReac Mild ITCHY SKIN Verified 12/13/21 15:21 ibuprofen AdvReac Unknown Other Verified 12/13/21 15:21 Nut Tree AdvReac Unknown MOUTH Uncoded 12/13/21 15:21 ITCHING WITH PECANS AND WALNUTS Review of Systems Review of Systems: Pertinent positives per HPI. Patient denies any fever, chills, rash, headache, visual changes, dizziness, cough, runny nose, sore throat, shortness of breath, chest pain, palpitations, nausea, vomiting, diarrhea, constipation, abdominal pain, or any urinary issues. PMF Past Medical History Medical History Anxiety Asthma Surgical History Surgical History History of abdominoplasty 06/2015 History of section 02/22/98, 02/24/02 History of gastric surgery lap 02/2013 History of knee surgery R knee lateral release with scope 12/2008, L knee lateral release with scope 11/2009 History of laparoscopic cholecystectomy 11/2002 History of surgery uterine ablation 07/2016 Family History Family History Father Family history of congenital heart disease Family history of lung cancer Patient's father is Grandparent Family history of congenital heart disease Family history of osteoarthritis Other Family history of arthritis Family history of heart disease in male family member before age 55 Family history of kidney disease Hypertension Social History Social History Smoking status: Never smoker Alcohol intake: never Substance use: never Substance use type: does not use Spiritual care concerns: No Comments At the time of my signature, I reviewed and agree with the nursing past medical, surgical, social, and family history. There is no relevant family history pertinent to the patient complaint. Exam Narrative: General: Well-developed, well nourished, in no apparent distress Head: Normocephalic, atraumatic Eyes: Pupils equally round and reacti
[2021-12-13 15:27] VITALS: BP 132/77; PULSE 77; RESP 18; TEMP 36.2; O2SAT 100
[2021-12-13] MEDS: diphenhydrAMINE HCl CAP 25 MG CAPSULE 50 MG PO (15:45)
[2021-12-13] MEDS: KETOROLAC (*BKC) 60 MG/2 ML VIAL IM (15:46)
[2021-12-13] MEDS: PROMETHAZINE HCL 25 MG/ML AMPUL IM (15:46)
== END 2021-12-13 16:16 | disposition home or self-care (01) ==
PROVIDERS: Emergency Provider Nurse Practitioner Family
DX: R51.9 Headache, unspecified (principal); J45.909 Unspecified asthma, uncomplicated; Z20.822 Contact with and (suspected) exposure to COVID-19
CPT/HCPCS: 96372; 99214; A9270; G0463; J1885; J2550

== ENCOUNTER 2021-12-21 06:44 | Outpatient (CLI) | payer OTHER, SELFPAY ==
[2021-12-21 07:39] LABS: Basophils Absolute Auto 0.1 K/mm3 (0.0-0.1); Basophils Percent Auto 1.8 % (0.2-1.2); Eosinophils Absolute Auto 0.2 K/mm3 (0-0.3); Eosinophils Percent Auto 5.1 % (0-4.4); Hematocrit 39.6 % (37.0-47.0); Hemoglobin 13.2 g/dL (12.0-15.0); Immature Granulocyte Absolute 0.01 K/mm3 (0.00-0.031); Immature Granulocyte Percent A 0.2 % (0-0.5); Lymphocytes Absolute Auto 1.53 K/mm3 (0.9-3.2); Lymphocytes Percent Auto 33.9 % (18.3-44.2); Mean Corpuscular HGB Conc 33.3 g/dl (32-36); Mean Corpuscular Hemoglobin 30.7 pg (26-34); Mean Corpuscular Volume 92.1 fl (80-100); Monocytes Absolute Auto 0.4 K/mm3 (0.1-0.6); Monocytes Percent Auto 8.9 % (2.6-8.5); Neutrophils Absolute Auto 2.3 K/mm3 (1.3-6.7); Neutrophils Percent Auto 50.1 % (45.5-73.1); Platelet Count Result 284 k/mm3 (150-375); Red Cell Distribution Width 12.3 % (11.5-14.5); White Blood Count 4.5 K/mm3 (4.5-10.0)
[2021-12-21 08:28] LABS: Parathyroid Intact 33.1 pg/mL (7.5-53.5)
[2021-12-21 08:34] LABS: Vitamin D 25 Hydroxy 60.1 ng/mL
[2021-12-21 08:42] LABS: Erythrocyte Sedimentation Rate 19 mm/hr (0-20)
[2021-12-21 08:50] LABS: Alanine Aminotransferase 28 U/L (6-35); Albumin Level 4.6 g/dL (3.5-5.1); Alkaline Phosphatase 116 U/L (38-126); Anion Gap 10 mmol/L (8-16); Aspartate Amino Transferase 31 U/L (14-36); Bilirubin,Total 0.5 mg/dL (0.2-1.3); Blood Urea Nitrogen 13 mg/dL (7-17); Calcium 9.2 mg/dL (8.4-10.2); Carbon Dioxide 23 mmol/L (22-30); Chloride 106 mmol/L (98-107); Estimated Glomerular Filt Rate > 60; Glucose 83 mg/dL (65-110); Sodium 139 mmol/L (137-145)
[2021-12-21 09:01] LABS: Hemoglobin A1C 4.9 % (<5.7)
[2021-12-23 12:45] LABS: FSH 22.5 mIU/mL (***)
[2021-12-25 21:32] LABS: Estradiol, Ultrasensitive 174 pg/mL
== END 2021-12-21 06:45 | disposition home or self-care (01) ==
LOC: ANHOBOP 06:51
DX: Z98.84 Bariatric surgery status (principal); N95.1 Menopausal and female climacteric states; E55.9 Vitamin D deficiency, unspecified; R51.9 Headache, unspecified
CPT/HCPCS: 36415; 80053; 82306; 82670; 83001; 83036; 83970; 84443; 85025; 85652

== ENCOUNTER 2022-03-04 01:20 | Day surgery (SDC) | payer OTHER, SELFPAY ==
[2022-02-20 14:39] VITALS: BMI 29.7
[2022-03-04 09:03] VITALS: BP 129/66; PULSE 87; RESP 18; TEMP 36.6; O2SAT 100; BMI 29.2
[2022-03-04] MEDS: LACTATED RINGERS 1,000 ML 150 ML IV CONT (09:34)
--- NOTE | 2022-03-04 10:05 | PM.HPGS ---
History of Present Illness History of Present Illness Consent: Risks, benefits, and alternatives have been discussed and questions answered. Patient agrees to proceed with procedure. Chief complaint: neoplasm screening Narrative: Ofelia Graff is a 51 year old female here for first screening colonoscopy Review of Systems Constitutional: Constitutional: Denies headache(s) and Denies weakness Eyes: Eyes: Denies blurry vision ENT: Reports Normal hearing present, Denies headache(s) and Denies neck pain Cardiovascular: Cardiovascular: Denies chest pain and Denies dyspnea Respiratory: Respiratory: Denies dyspnea Gastrointestinal: Gastrointestinal: Reports no additional gastrointestinal complaints Genitourinary: Genitourinary: Denies dysuria Musculoskeletal: Musculoskeletal: Denies neck pain Integumentary/Breasts: Skin/Breast: Denies dry skin Neurologic: Reports Normal hearing present, Denies headache(s) and Denies weakness Psychiatric: Psychiatric: Denies anxiety Endocrine: Endocrine: Denies change in body appearance Hematologic/Lymphatic: Hematologic/Lymphatic: Denies easy bleeding Allergic/Immunologic: Allergic/Immunologic: Denies urticaria PMFSH Past Medical History Medical History (Updated 03/04/22 @ 10:06 by Missael Campbell MD) Anxiety Asthma Colon cancer screening Surgical History Surgical History History of abdominoplasty 06/2015 History of section 02/22/98, 02/24/02 History of gastric surgery lap 02/2013 History of knee surgery R knee lateral release with scope 12/2008, L knee lateral release with scope 11/2009 History of laparoscopic cholecystectomy 11/2002 History of surgery uterine ablation 07/2016 Family History Family History Father Family history of congenital heart disease Family history of lung cancer Patient's father is Grandparent Family history of congenital heart disease Family history of osteoarthritis Other Family history of arthritis Family history of heart disease in male family member before age 55 Family history of kidney disease Hypertension Social History Social History Smoking status: Never smoker Alcohol intake: current Alcohol use details: socially Substance use: never Substance use type: does not use Living arrangements: with family Spiritual care concerns: No Meds Home Medications and Allergies Home Medications Medication Instructions Recorded Confirmed Type duloxetine 60 mg capsule,delayed 60 mg PO DAILY 12/18/20 02/20/22 History release multivitamin 1 tablet PO DAILY 12/18/20 02/20/22 History albuterol sulfate 90 mcg/actuation 2 puff inhalation DAILY PRN SOB 01/27/21 02/20/22 History aerosol inhaler melatonin 5 mg sublingual tablet 5 mg sublingual HS 01/27/21 02/20/22 History dextroamphetamine-amphetamine 20 20 mg PO DAILY 12/13/21 02/20/22 History mg tablet lorazepam 1 mg tablet 1 mg PO PRN PRN Anxiety 12/13/21 02/20/22 History tirzepatide 5 mg/0.5 mL 5 mg subcut WEEKLY 12/13/21 02/20/22 History subcutaneous pen injector (Julissa) Allergies Allergy/AdvReac Type Severity Reaction Status Date / Time adhesive AdvReac Mild BLISTERS; Verified 02/20/22 14:37 ITCHING oxycodone AdvReac Mild ITCHY SKIN Verified 02/20/22 14:37 ibuprofen AdvReac Unknown Other Verified 02/20/22 14:37 Nut Tree AdvReac Unknown MOUTH Uncoded 02/20/22 14:37 ITCHING WITH PECANS AND WALNUTS Vital Signs Vital Signs - 24 hr 03/04/22 09:03 Temperature 97.9 F Pulse Rate 87 Respiratory Rate 18 Blood Pressure 129/66 Pulse Oximetry 100 Oxygen Delivery Room Air Exam Const: General: comfortable and no acute distress HENMT: Face/Nose/Sinus: Normal nares pr
--- NOTE | 2022-03-04 10:08 | WPDANESEPPF ---
Anes - Initial Pre Proc Eval Procedure: Operation Date: 03/04/22 10:15 Proposed Procedures p Screening Colonoscopy - Missael Campbell MD Date/Time: 03/04/22 10:08 Surgeon: Missael Campbell MD Pre Op Diagnosis: neoplasm screening Patient Data Age: 51 Gender: F Height: 1.7 m Weight: 84.7 kg Last Vital Signs Temp 97.9 F 03/04/22 09:03 Pulse 87 03/04/22 09:03 Resp 18 03/04/22 09:03 BP 129/66 03/04/22 09:03 Pulse Ox 100 03/04/22 09:03 O2 Del Method Room Air 03/04/22 09:03 Allergies Allergy/AdvReac Type Severity Reaction Status Date / Time adhesive AdvReac Mild BLISTERS; Verified 02/20/22 14:37 ITCHING oxycodone AdvReac Mild ITCHY SKIN Verified 02/20/22 14:37 ibuprofen AdvReac Unknown Other Verified 02/20/22 14:37 Nut Tree AdvReac Unknown MOUTH Uncoded 02/20/22 14:37 ITCHING WITH PECANS AND WALNUTS Home Medications Medication Instructions Recorded Confirmed Type duloxetine 60 mg capsule,delayed 60 mg PO DAILY 12/18/20 02/20/22 History release multivitamin 1 tablet PO DAILY 12/18/20 02/20/22 History albuterol sulfate 90 mcg/actuation 2 puff inhalation DAILY PRN SOB 01/27/21 02/20/22 History aerosol inhaler melatonin 5 mg sublingual tablet 5 mg sublingual HS 01/27/21 02/20/22 History dextroamphetamine-amphetamine 20 20 mg PO DAILY 12/13/21 02/20/22 History mg tablet lorazepam 1 mg tablet 1 mg PO PRN PRN Anxiety 12/13/21 02/20/22 History tirzepatide 5 mg/0.5 mL 5 mg subcut WEEKLY 12/13/21 02/20/22 History subcutaneous pen injector (Alessandrounpawan) Patient hx anesthesia problems: none Family hx anesthesia problems: none Results Review: All pre-operative results and documents have been reviewed as part of the pre-operative evaluation. [facility] Past Medical History Medical History (Updated 03/04/22 @ 10:06 by Missael Campbell MD) Anxiety Asthma Colon cancer screening Surgical History Surgical History History of abdominoplasty 06/2015 History of section 02/22/98, 02/24/02 History of gastric surgery lap 02/2013 History of knee surgery R knee lateral release with scope 12/2008, L knee lateral release with scope 11/2009 History of laparoscopic cholecystectomy 11/2002 History of surgery uterine ablation 07/2016 Family History Family History Father Family history of congenital heart disease Family history of lung cancer Patient's father is Grandparent Family history of congenital heart disease Family history of osteoarthritis Other Family history of arthritis Family history of heart disease in male family member before age 55 Family history of kidney disease Hypertension Social History Social History Smoking status: Never smoker Alcohol intake: current Alcohol use details: socially Substance use: never Substance use type: does not use Living arrangements: with family Spiritual care concerns: No Anes - Eval Final PreProcedure Day of Procedure 03/04/22 10:08 Patient weight: normal Heart: regular rate and rhythm Lungs: clear to auscultation Airway: Mallampati scale class II Neurological: alert and oriented Last oral intake: >/= 8 hours ASA classification: II Emergent: no Anesthetic plan: proceed Anesthesia type and monitoring: general GIVS and standard monitoring Results Review: All pre-operative results and documents have been reviewed as part of the pre-operative evaluation. Informed Consent: The patient's anesthetic plan and its attendant risks and benefits were discussed with the patient/family/POA. Questions were solicited and answers provided to the satisfaction of the patient/family/POA.
[2022-03-04 10:34] VITALS: BP 111/72; PULSE 83; RESP 20; O2SAT 97
[2022-03-04 10:44] VITALS: BP 118/80; PULSE 76; RESP 15; O2SAT 100
[2022-03-04 10:54] VITALS: BP 126/82; PULSE 74; RESP 20; O2SAT 100
== END 2022-03-04 11:03 | disposition home or self-care (01) ==
PROVIDERS: Visit Provider Internal Medicine Gastroenterology
PROC: 0DJD8ZZ Inspection of Lower Intestinal Tract, Via Natural or Artificial Opening Endoscopic (ICD-10-PCS; CPT 45378; principal; 2022-03-04 10:15)
DX: Z12.11 Encounter for screening for malignant neoplasm of colon (principal); K63.5 Polyp of colon; K64.8 Other hemorrhoids; J45.909 Unspecified asthma, uncomplicated; F41.9 Anxiety disorder, unspecified; Z79.51 Long term (current) use of inhaled steroids
CPT/HCPCS: 45385; 88305; J2704; J7120

== ENCOUNTER 2022-04-06 08:31 | Outpatient (CLI) | payer OTHER, SELFPAY ==
--- NOTE | ~2022-04-06 | CT_ITS ---
EXAMINATION: CT abdomen pelvis wo con DATE: 04/06/2022 08:59 INDICATION: Possible kidney stone TECHNIQUE: Computed tomography (CT) of the abdomen and pelvis was performed without intravenous contr ast. The dose-length product was 249.15 mGy-cm. Automated exposure control and iterative reconstructi on technique were employed. COMPARISON: CT dated 07/22/2021. FINDINGS: Lung bases are unremarkable. Heart size normal. No significant pleural or pericardial effus ion. There are surgical changes consistent with gastric bypass surgery. There are cholecystectomy cli ps. There is a 5 mm stone in the right renal pelvis. There is right hydroureteronephrosis proximally. Pos sible subtle hyperdensity in the proximal right ureter measuring 5 mm, coronal image 54. The distal a spect the ureter is decompressed. There are pelvic phleboliths. There are cholecystectomy clips. Nono bstructive bowel gas pattern. Colonic diverticulosis without evidence for diverticulitis. No free air or free fluid. Bladder is decompressed limiting evaluation for thickening. No significant vascular a bnormality. No lymphadenopathy. IMPRESSION: 1. Subtle hyperdensity proximal aspect of the right ureter measuring 5 mm which may represent blood c lot, stone or less likely tumor. There is right hydroureteronephrosis proximal to this location. 2: Right nephrolithiasis measuring 5 mm. Reviewed, dictated and finalized at location A. [facility] IMPRESSION: 1. Subtle hyperdensity proximal aspect of the right ureter measuring 5 mm which may represent blood clot, stone or less likely tumor. There is right hydrouret eronephrosis proximal to this location. 2: Right nephrolithiasis measuring 5 mm.
== END 2022-04-06 08:32 | disposition home or self-care (01) ==
PROVIDERS: Visit Provider Obstetrics & Gynecology
DX: N20.0 Calculus of kidney (principal); N28.9 Disorder of kidney and ureter, unspecified; N13.30 Unspecified hydronephrosis
CPT/HCPCS: 74176

== ENCOUNTER 2022-04-06 09:02 | Emergency (ER) | payer OTHER, SELFPAY ==
--- NOTE | ~2022-04-06 | CT_ITS ---
EXAMINATION: CT abdomen pelvis w con DATE: 04/06/2022 12:47 INDICATION: Renal stones TECHNIQUE: Computed tomography (CT) of the abdomen and pelvis was performed with 130 cc Omnipaque 350 intravenous contrast. The dose-length product was 1131.77 mGy-cm. Automated exposure control and ite rative reconstruction technique were employed. COMPARISON: CT dated 04/06/2022 FINDINGS: There is mild dilation of the right renal pelvis with transition to normal caliber ureter a t the UPJ. No obstructing stone is identified. No significant ureteral dilation. No left hydronephros is. Stones seen on prior noncontrast CT is not visualized following contrast administration. Status p ost cholecystectomy with expected prominence of the bile ducts. Fatty infiltration of the liver. Ther e are low density lesions of the spleen, likely cysts. There are changes of gastric bypass surgery. T he pancreas, adrenal glands are unremarkable. Nonobstructive bowel gas pattern. Colonic diverticulosi s without evidence for diverticulitis. Bladder is unremarkable. IMPRESSION: 1. Mildly dilated right renal pelvis with transition to normal caliber ureter at the UPJ. Cannot excl ude mild UPJ obstruction. Reviewed, dictated and finalized at location A. [employer] IMPRESSION: 1. Mildly dilated right renal pelvis with transition to normal caliber ureter a t the UPJ. Cannot exclude mild UPJ obstruction.
[2022-04-06 09:32] VITALS: BP 119/99; PULSE 73; RESP 20; TEMP 37.1; O2SAT 100
[2022-04-06 09:37] LABS: Appearance Urine Clear (Clear); Bilirubin Urine Negative (Negative); Blood Urine 2+ (Negative); Color Urine Yellow (Yellow); Glucose Urine UA Negative (Negative); Ketones Urine Negative (Negative); Leukocyte Esterase Ur Negative LEU/UL (Negative); Nitrate Urine Negative (Negative); Protein Urine 1+ mg/dL (Negative); Specific Grav Ur 1.015 (1.001-1.035); Urobilinogen Urine 0.2 mg/dL (<2.0); pH Urine 6.5 (5.0-9.0)
[2022-04-06 09:38] LABS: Basophils Absolute Auto 0.1 K/mm3 (0.0-0.1); Basophils Percent Auto 1.1 % (0.2-1.2); Eosinophils Absolute Auto 0.2 K/mm3 (0-0.3); Eosinophils Percent Auto 3.4 % (0-4.4); Hematocrit 34.9 % (37.0-47.0); Hemoglobin 11.8 g/dL (12.0-15.0); Immature Granulocyte Absolute 0.01 K/mm3 (0.00-0.031); Immature Granulocyte Percent A 0.2 % (0-0.5); Mean Corpuscular HGB Conc 33.8 g/dl (32-36); Mean Corpuscular Hemoglobin 30.6 pg (26-34); Mean Corpuscular Volume 90.6 fl (80-100); Mean Platelet Volume 8.8 fl (7.4-10.4); Monocytes Absolute Auto 0.5 K/mm3 (0.1-0.6); Monocytes Percent Auto 8.4 % (2.6-8.5); Neutrophils Absolute Auto 3.2 K/mm3 (1.3-6.7); Neutrophils Percent Auto 58.9 % (45.5-73.1); Platelet Count Result 269 k/mm3 (150-375); Red Blood Count 3.85 M/mm3 (4.2-5.4); Red Cell Distribution Width 12.4 % (11.5-14.5); White Blood Count 5.4 K/mm3 (4.5-10.0)
[2022-04-06 09:42] LABS: Bacteria Urine Trace /hpf; Mucus Urine Rare /lpf; RBC Urine 51-75 /hpf (0-2); Squamous Epithelial Cell Urine Moderate /hpf (Few)
[2022-04-06 09:48] LABS: Add Urine Microscopic? YES
[2022-04-06 09:49] LABS: Anion Gap 3 mmol/L (8-16); Blood Urea Nitrogen 11 mg/dL (7-17); Calcium 8.9 mg/dL (8.4-10.2); Carbon Dioxide 27 mmol/L (22-30); Chloride 104 mmol/L (98-107); Estimated Glomerular Filt Rate > 60; Glucose 86 mg/dL (65-110); Potassium 3.7 mmol/L (3.4-5.0); Sodium 134 mmol/L (137-145)
--- NOTE | 2022-04-06 09:58 | ED.ABDPAIN ---
HPI - Abdominal Pain General Chief Complaint: Abdominal Pain Stated Complaint: renal stone on CT scan Time Seen by Provider: 04/06/22 09:10 Source: patient, RN notes reviewed and old records reviewed Mode of arrival: ambulatory Limitations: no limitations History of Present Illness HPI narrative: This is a 51-year-old female that presents to the emergency department for right flank pain ongoing since earlier this morning. Radiating into her abdomen. Associated with nausea, vomiting and dysuria. Reports she has been following with Urology for blood in the urine and a kidney stone. She started to have worsening pain and had an outpatient CT scan this morning that showed the stone was now in her ureter. Denies fevers. Related Data Home Medications Medication Instructions Recorded Confirmed duloxetine 60 mg capsule,delayed 60 mg PO DAILY 12/18/20 02/20/22 release multivitamin 1 tablet PO DAILY 12/18/20 02/20/22 albuterol sulfate 90 mcg/actuation 2 puff inhalation DAILY PRN SOB 01/27/21 02/20/22 aerosol inhaler melatonin 5 mg sublingual tablet 5 mg sublingual HS 01/27/21 02/20/22 dextroamphetamine-amphetamine 20 20 mg PO DAILY 12/13/21 02/20/22 mg tablet lorazepam 1 mg tablet 1 mg PO PRN PRN Anxiety 12/13/21 02/20/22 tirzepatide 5 mg/0.5 mL 5 mg subcut WEEKLY 12/13/21 02/20/22 subcutaneous pen injector (Mounjaro) Allergies Allergy/AdvReac Type Severity Reaction Status Date / Time adhesive tape Allergy Rash Verified 04/06/22 09:38 NSAIDS (Non-Steroidal Allergy Other Verified 04/06/22 09:37 Anti-Inflamma Review of Systems Review of Systems: CONSTITUTIONAL: Denies fever GASTROINTESTINAL: Reports abdominal pain, nausea, vomiting GENITOURINARY: Reports dysuria and hematuria. All systems reviewed & are unremarkable except as noted in HPI and below PMFSH Past Medical History Medical History (Updated 04/06/22 @ 14:04 by Barbara Pandey PA-C) Anxiety Asthma Colon cancer screening History of ADHD History of migraine Surgical History Surgical History History of abdominoplasty 06/2015 History of section 02/22/98, 02/24/02 History of gastric surgery lap 02/2013 History of knee surgery R knee lateral release with scope 12/2008, L knee lateral release with scope 11/2009 History of laparoscopic cholecystectomy 11/2002 History of surgery uterine ablation 07/2016 Family History Family History Father Family history of congenital heart disease Family history of lung cancer Patient's father is Grandparent Family history of congenital heart disease Family history of osteoarthritis Other Family history of arthritis Family history of heart disease in male family member before age 55 Family history of kidney disease Hypertension Social History Social History Smoking status: Never smoker Alcohol intake: current Alcohol use details: socially Substance use: never Substance use type: does not use Spiritual care concerns: No Exam Narrative: GENERAL: Well-appearing, well-nourished, and in no acute distress. HEAD: Normocephalic, atraumatic. EYES: EOMI. CHEST: Clear to auscultation. No respiratory distress. No wheezes rales or rhonchi HEART: Regular rate and rhythm. No murmur heard. Normal peripheral pulses. ABDOMEN: Soft, nontender, nondistended, normal active bowel sounds. No CVA tenderness EXTREMITIES: Normal range of motion. No edema. SKIN: Warm, dry, no rash. NEURO: No focal deficits. Alert and oriented x3. PSYCH: Normal mood and affect Course Reevaluation(s) Reevaluation #1: Patient reports worsening discomfort, requesting more pain medication Date: 04/06/22 Time: 12:30 Reevaluation #2: Patient now resting comfortably. Updated on further work-up.
[2022-04-06] MEDS: MORPHINE SULFATE (*CRX) 4 MG/ML INJ IV PUSH ×2 (10:34→12:57)
[2022-04-06] MEDS: ONDANSETRON INJ 4 MG/2 ML VIAL IV PUSH (10:34)
[2022-04-06] MEDS: SODIUM CHLORIDE 0.9% IV 1,000 ML 999 ML IV CONT (10:36)
[2022-04-06] MEDS: FAMOTIDINE 20 MG/2 ML VIAL IV PUSH (12:56)
== END 2022-04-06 14:30 | disposition home or self-care (01) ==
PROVIDERS: Emergency Provider Physician Assistant
DX: R10.9 Unspecified abdominal pain (principal); N13.30 Unspecified hydronephrosis; J45.909 Unspecified asthma, uncomplicated; F41.9 Anxiety disorder, unspecified; F90.9 Attention-deficit hyperactivity disorder, unspecified type
CPT/HCPCS: 36415; 74177; 80048; 81001; 85025; 87086; 96365; 96366; 96375; 96376; 99284; J0131; J2270; J2405; J7030; Q9967

== ENCOUNTER 2022-04-09 09:48 | Outpatient (CLI) | payer OTHER, SELFPAY ==
--- NOTE | ~2022-04-09 | XR_ITS ---
Supine and upright views of the abdomen Clinical history: Right renal stone Findings: Bowel gas pattern is nonspecific. No evidence for obstruction or free air. 6 mm right lower pole renal stone present. Cholecystectomy clips noted. Osseous structures are intact. Impression: 6 mm right lower pole renal stone. Reviewed, dictated and finalized at [facility]. AL ANALYST Impression: 6 mm right lower pole renal stone.
--- NOTE | ~2022-04-09 | XR_ITS ---
Right Knee Technique: AP, lateral, notch, and sunrise views were obtained. Clinical History: Osteoarthritis Findings: No fracture or dislocation is seen. Osseous alignment is anatomic. Moderate tricompartmenta l degenerative spurring is present. Soft tissues are unremarkable. No joint effusion is seen. Impression: Moderate tricompartmental osteoarthritis. Reviewed, dictated and finalized at location . [facility] Impression: Moderate tricompartmental osteoarthritis.
== END 2022-04-09 09:49 | disposition home or self-care (01) ==
PROVIDERS: Visit Provider Orthopaedic Surgery
DX: M17.11 Unilateral primary osteoarthritis, right knee (principal); N20.0 Calculus of kidney
CPT/HCPCS: 73564; 74018

== ENCOUNTER 2022-04-20 07:57 | Outpatient (CLI) | payer OTHER, SELFPAY ==
[2022-04-20 08:49] LABS: Prothrombin Time 13.2 Seconds (11.1-14.7)
[2022-04-20 08:50] LABS: Partial Thromboplastin Time 30.8 SECONDS (22.3-36.8)
== END 2022-04-20 07:58 | disposition home or self-care (01) ==
LOC: ANHSURGERY 08:01
PROVIDERS: Visit Provider Urology
DX: N20.0 Calculus of kidney (principal); Z01.818 Encounter for other preprocedural examination
CPT/HCPCS: 36415; 85610; 85730; 87077; 87086; 87186

== ENCOUNTER 2022-04-28 08:36 | Outpatient (CLI) | payer OTHER, SELFPAY | END 2022-04-28 08:37 | disposition home or self-care (01) | PROVIDERS: Visit Provider Urology | DX: N20.0 Calculus of kidney (principal); Z01.818 Encounter for other preprocedural examination | CPT/HCPCS: 87086 ==

== ENCOUNTER 2022-05-01 01:08 | Day surgery (SDC) | payer OTHER, SELFPAY ==
[2022-04-15 16:45] VITALS: BMI 28.1
--- NOTE | 2022-04-15 16:57 | SUR.PREOP ---
Addendum entered by Kellee Stallworth RN 04/16/22 11:43: PLEASE TAKE YOUR PROPANOLOL WITH A SIP OF WATER THE MORNING OF SURGERY. Original Note: Report to the Outpatient Waiting Room, entrance under the [facility] located off [facility], at time 0600 on date 04/24/22. Planned Procedure Time: 0730. Time changes happen often and if your time is changed the preop area will call you the afternoon before. - You and your visitor will be asked to self-screen and do not enter if you have any COVID symptoms. - Only one visitor is requested with a max of two and NO children visitors are allowed at this time. - The patient visitor may be requested to leave or wait in car when not with patient due to distancing restrictions. - A mask is optional within the hospital at this time. Patients may have clear liquids (water, carbonated beverages, clear teas, apple juice) until 3 hours prior to surgery with a maximum of 20 ounces. - No food from midnight until time of surgery - Infants may have breast milk until 4 hours before surgery, formula 6 hours prior to surgery. - Children will be allowed to drink immediately following surgery. If applicable, please bring a bottle or sippy cup to assist with drinking. Juice, water, soda, and popsicles are readily available. For infants on formula, please bring formula the day of surgery. Pacifiers are allowed. Take the following medications with a SIP of water the morning of surgery: DO NOT STOP ANY OF YOUR OTHER PRESCRIPTION MEDICATIONS PRIOR TO SURGERY ?EXCEPT THE FOLLOWING Medications to discontinue per physician multivitamins 7 days prior to procedure Date to take last dose Please no make-up, nail singaporean, hairspray, perfume, deodorant, or body powder the day of surgery. No jewelry (including any body piercings) or valuables the day of surgery, leave them at home. Please take a shower or bath the night before, or the morning of, surgery with an antibacterial soap. Wear comfortable, loose fitting clothing. Children are encouraged to wear pajamas. - Jewelry must be removed prior to entering the operating room. Rings and piercings that are not removed may be cut off. - The hospital will not accept responsibility for valuables. - Please leave all valuables, including medications, at home the day of surgery. If you are going home after surgery, a licensed shuttle truck driver must drive you home. - NO public transportation without another adult if you receive anesthesia. - We recommend that an adult stay with you for 24 hours following discharge. - We also recommend that you do not drive, make important decision, drink alcoholic beverages, or take any drugs that were not prescribed by your health care provider for at least 24 hours after your discharge time. For Pediatric surgeries, we recommend two adults accompany the child home. Follow any additional instructions given to you from your surgeon. If you or anyone in your household have experienced Covid symptoms in the past week, please notify your surgeon or the nurse liaison at the phone number below for possible testing. Telephone instructions given to _patient_and asked if any additional questions and then verbalized understanding. Patient advised to call surgeon office or pre surgery nurse liaison [phone] if any additional questions.
--- NOTE | 2022-04-27 13:52 | PC.NURSE ---
PT STATES NO CHANGE IN HEALTH ASSESSMENT SINCE INTERVIEW ON 04/15/22. PT STATES WAS TREATED FOR +UC AND COMPLETED ABX COURSE. PREOP INSTRUCTIONS GIVEN. SURGEON'S OFFICE TO NOTIFY IF REPEAT UC NEEDED PREOP
[2022-05-01] VITALS (7 sets, daily range): BP systolic 97–125; BP diastolic 43–74; PULSE 60–76; RESP 12–16; TEMP 36.2–36.3; O2SAT 95–100
--- NOTE | ~2022-05-01 | XR_ITS ---
Supine and upright views of the abdomen Clinical history: Lithotripsy COMPARISON: 04/09/2022 Findings: Bowel gas pattern is nonspecific. Cholecystectomy clips noted. Suture line noted in the epi gastric region. No evidence for obstruction or free air. No abnormal mass lesion or calcification is seen. Osseous structures are intact. Impression: No definite renal stone seen currently, but evaluation is suboptimal due to prominent stool overlying the bilateral renal shadows. Reviewed, dictated and finalized at [facility]. TER FORMER Impression: No definite renal stone seen currently, but evaluation is suboptimal due to pro minent stool overlying the bilateral renal shadows.
--- NOTE | 2022-05-01 06:50 | WPDANESEPPF ---
Anes - Initial Pre Proc Eval Procedure: Operation Date: 05/01/22 07:30 Proposed Procedures p Right Renal Extracorporeal Shock Wave Lithotripsy - Kwame Remy MD Date/Time: 05/01/22 06:50 Surgeon: Kwame Remy MD Pre Op Diagnosis: right renal stones Patient Data Age: 51 Gender: F Height: 1.7 m Weight: 81.65 kg Allergies Allergy/AdvReac Type Severity Reaction Status Date / Time adhesive tape AdvReac Severe Rash Verified 05/01/22 06:31 Home Medications Medication Instructions Recorded Confirmed Type duloxetine 60 mg capsule,delayed 60 mg PO DAILY 12/18/20 05/01/22 History release multivitamin 1 tablet PO DAILY 12/18/20 05/01/22 History albuterol sulfate 90 mcg/actuation 2 puff inhalation DAILY PRN SOB 01/27/21 05/01/22 History aerosol inhaler melatonin 5 mg sublingual tablet 5 mg sublingual HS 01/27/21 05/01/22 History lorazepam 1 mg tablet 1 mg PO PRN PRN Anxiety 12/13/21 05/01/22 History tirzepatide 5 mg/0.5 mL 5 mg subcut WEEKLY 12/13/21 05/01/22 History subcutaneous pen injector (Mounjaro) propranolol 20 mg tablet 20 mg PO DAILY 04/15/22 05/01/22 History cholecalciferol (vitamin D3) 50 50 mcg PO DAILY 04/16/22 05/01/22 History mcg (2,000 unit) capsule cyanocobalamin (vitamin B-12) 1,000 mcg PO DAILY 04/16/22 05/01/22 History 1,000 mcg tablet,extended release Patient hx anesthesia problems: none Family hx anesthesia problems: none Results Review: All pre-operative results and documents have been reviewed as part of the pre-operative evaluation. [facility] Past Medical History Medical History Anxiety Asthma Colon cancer screening History of ADHD History of migraine Surgical History Surgical History History of abdominoplasty 06/2015 History of section 02/22/98, 02/24/02 History of gastric surgery lap 02/2013 History of knee surgery R knee lateral release with scope 12/2008, L knee lateral release with scope 11/2009 History of laparoscopic cholecystectomy 11/2002 History of surgery uterine ablation 07/2016 Family History Family History Father Family history of congenital heart disease Family history of lung cancer Patient's father is Grandparent Family history of congenital heart disease Family history of osteoarthritis Other Family history of arthritis Family history of heart disease in male family member before age 55 Family history of kidney disease Hypertension Social History Social History Smoking status: Never smoker Alcohol intake: current Alcohol use details: socially Substance use: never Substance use type: does not use Lack of Transportation: No Lack of Food: Never True Current Housing: I Have Housing Concerned About Future Housing: No Difficulty Paying Gas/Electric Bills: No Difficulty Paying for Meds: No Currently Unemployed: No Education: Trade/Vocational Certificate Difficulty w/ Childcare or Family Care: No Living arrangements: with family Spiritual care concerns: No Anes - Eval Final PreProcedure Day of Procedure 05/01/22 06:50 Patient weight: overweight Heart: regular rate and rhythm Lungs: clear to auscultation Airway: Mallampati scale class II Neurological: alert and oriented Last oral intake: >/= 8 hours ASA classification: II Emergent: no Anesthetic plan: proceed Anesthesia type and monitoring: general LMA and standard monitoring Results Review: All pre-operative results and documents have been reviewed as part of the pre-operative evaluation. Informed Consent: The patient's anesthetic plan and its attendant risks and benefits were discussed with the patient/family/POA. Questions were solicited and answers provided to t
[2022-05-01] MEDS: LACTATED RINGERS 1,000 ML 30 ML IV CONT ×2 (06:53→08:36)
--- NOTE | 2022-05-01 07:24 | WPDHPUPDATE1 ---
History and Physical Update Update Date/Time: 05/01/22 07:24 History and Physical has been reviewed, including an updated exam of the patient. There are NO changes in the patient's condition. Risks, benefits, and alternatives have been discussed and questions answered. Patient agrees to proceed with procedure. Proceed with eswl of right renal calculus
[2022-05-01] MEDS: ceFAZolin 2 GM/D5W 50 ML 2 GM/50 ML BAG IVPB (07:30)
--- NOTE | 2022-05-01 08:03 | W.PM.PROC2 ---
Procedure Note - Detailed Date of Procedure 05/01/22 Pre-op Diagnosis right renal stones Post-op Diagnosis Same Procedure Performed lithotripsy of 6 mm right renal calculus Surgeon Kwame Remy MD Anesthesia General Description of Procedure patient was taken to the operative suite correctly identified. Once anesthesia was obtained the stone was localized in both planes. Two thousand five hundred shocks were given to the stone. There appeared to be good fragmentation. Patient tolerated procedure well without any complications was taken recovery stable condition. She will follow-up in 7-10 days with [facility] Estimated Blood Loss 0 Drains No Packing No Pathology None sent Complications No immediate complications Condition Stable Disposition PACU
[2022-05-01] MEDS: fentaNYL CITRATE INJ (*CRX) 100 MCG/2 ML VIAL 25 MCG IV PUSH ×2 (08:49→08:52)
== END 2022-05-01 09:53 | disposition home or self-care (01) ==
PROVIDERS: Visit Provider Urology
PROC: (CPT 50590; principal; 2022-05-01 07:30)
DX: N20.0 Calculus of kidney (principal); J45.909 Unspecified asthma, uncomplicated; F41.9 Anxiety disorder, unspecified; Z79.51 Long term (current) use of inhaled steroids; Z98.84 Bariatric surgery status
CPT/HCPCS: 50590; 74018; J0690; J1100; J2250; J2405; J2704; J3010; J7120

== ENCOUNTER 2022-07-14 15:19 | Outpatient (CLI) | payer OTHER, SELFPAY ==
--- NOTE | ~2022-07-14 | XR_ITS ---
EXAM: XR knee LT min 4V DATE: 07/14/2022 15:43 HISTORY: M25.562 - Pain in left knee . COMPARISON: 04/19/2016. FINDINGS: Decreased mineralization. No fracture or dislocation. No lytic or blastic lesion. Medial j oint space narrowing. Moderate tricompartmental osteophytosis. No significant joint effusion. No eros ion or periosteal change. Soft tissues within normal limits. IMPRESSION: Moderate tricompartmental osteoarthritis of the left knee. Reviewed, dictated and finalized at location K.
== END 2022-07-14 15:20 | disposition home or self-care (01) ==
LOC: ANHIMG 15:21
PROVIDERS: PCP Family Medicine; Visit Provider Orthopaedic Surgery
DX: M17.12 Unilateral primary osteoarthritis, left knee (principal)
CPT/HCPCS: 73564

== ENCOUNTER 2022-08-30 11:25 | Outpatient (CLI) | payer OTHER, SELFPAY ==
[2022-08-30 12:05] LABS: Alanine Aminotransferase 30 U/L (6-35); Albumin Level 4.5 g/dL (3.5-5.1); Alkaline Phosphatase 118 U/L (38-126); Anion Gap 7 mmol/L (8-16); Aspartate Amino Transferase 37 U/L (14-36); Bilirubin,Total 0.3 mg/dL (0.2-1.3); Blood Urea Nitrogen 10 mg/dL (7-17); Calcium 8.7 mg/dL (8.4-10.2); Carbon Dioxide 26 mmol/L (22-30); Chloride 104 mmol/L (98-107); Cholesterol 186 mg/dL (0-200); Estimated Glomerular Filt Rate > 60; Glucose 128 mg/dL (65-110); HDL Direct 80 mg/dL; Potassium 4.2 mmol/L (3.4-5.0); Sodium 137 mmol/L (137-145); Triglycerides 96 mg/dL (<150)
[2022-08-30 12:15] LABS: Iron 68 ug/dL (37-170)
[2022-08-30 12:16] LABS: LDL Cholesterol Direct 83 mg/dL
[2022-08-30 12:24] LABS: Percent Iron Saturation 17 % (20-50)
[2022-08-30 12:45] LABS: Thyroid Stimulating Hormone Reflex 0.627 uIU/mL (0.465-4.68)
== END 2022-08-30 11:26 | disposition home or self-care (01) ==
LOC: ANHOBOP 11:29
PROVIDERS: Visit Provider Family Medicine
DX: Z98.84 Bariatric surgery status (principal); Z00.00 Encounter for general adult medical examination without abnormal findings
CPT/HCPCS: 36415; 80053; 80061; 82607; 82728; 83540; 83550; 84443

== ENCOUNTER → 2022-11-02 16:12 | Outpatient (CLI) | payer OTHER, SELFPAY ==
--- NOTE | ~2022-11-02 | XR_ITS ---
EXAMINATION: XR hip LT 2V w AP pelvis DATE: 11/02/2022 16:40 INDICATION: Trochanteric bursitis, left hip. TECHNIQUE: An anteroposterior view of the pelvis and 2 views of left hip were obtained. COMPARISON: Pelvis radiograph 02/17/2011 FINDINGS: There is lumbar dextrocurvature. No fracture. There is mild lumbar spondylosis. There is mi ld osteoarthritis of the hips. There are dystrophic calcifications adjacent to the greater trochanter of proximal left femur. IMPRESSION: 1. Mild osteoarthritis of the hips. Reviewed, dictated and finalized at location A.
== END ==
PROVIDERS: PCP Orthopaedic Surgery; Visit Provider Orthopaedic Surgery
DX: M70.62 Trochanteric bursitis, left hip (principal); M16.0 Bilateral primary osteoarthritis of hip
CPT/HCPCS: 73502

== ENCOUNTER 2022-12-07 09:00 | Outpatient (RCR) | payer OTHER, SELFPAY ==
--- NOTE | 2022-10-05 14:43 | PTOPEVAL1 ---
Assessment and note entered by Chapin Barnes, PT Evaluation Information Assessment Status Evaluation Diagnosis Left knee Pain, Left Hip Bursitis Onset 03/22/14 Subjective Information Reports that she has had multiple cortisone injections and arthroscopes in her past. She has been wanting to do PT prior to any possible surgery but having a lot of pain in lateral knee and up IT band. She currently has a cortisone injection in her left knee. Reported Pain Level Pain Score 4: Self Report Assessment PT Clinical Summary Patient presents with capsule restriction in angel posterior knees with addition of restricted L hip extension all consistent with knee OA and hip bursitis. Will benefit from skilled therapy to address ROM deficits and mm weakness in hips to normalize gait cycle and promote improved knee and hip stability. Plan of Care Interventions Electrical Stimulation,Hot Pack/Cold Pack,Manual Therapy,Neuro Re-education,Therapeutic Activities, Therapeutic Exercise PT Services Indicated Yes These treatments will address the objective and functional deficits as defined above. The patient will be advanced safely and appropriately in order for the patient to progress towards his/her prior level of function. Additional exercises will be introduced and as well as a comprehensive home exercise program upon discharge, if needed, ?to ensure carryover of functional gains achieved in the clinic. This treatment plan has been reviewed and agreement upon by the patient.
--- NOTE | 2022-10-05 14:44 | OPREHPOC ---
Outpatient Therapy Plan of Care This is a Multidisciplinary Plan of Care that may contain components documented by all disciplines (PT, OT, and ST.) PT Problem 1 PT Problem #1 Knowledge Deficit PT Goal 1 Goal Independent with hip mobilization and strengthening HEP Target Visit 12 PT Problem 2 PT Problem #2 Impaired Range of Motion PT Goal 1 Goal Improve angel knee ROM to 0 degrees to improve terminal stance PT Goal 2 Goal Improve L hip extension to 20 degrees to improve terminal stance of gait Target Visit 12 PT Problem 3 PT Problem #3 Impaired Strength PT Goal 1 Goal Improve angel hip abduction strength to 4+/5 to improve lateral stability with gait Target Visit 12
--- NOTE | 2022-11-02 13:13 | PCPTNOTE ---
Patient No Show for this visit. I called patient and left voicemail.
--- NOTE | 2022-11-06 10:25 | PTOPPROG ---
Assessment and note entered by Chapin Barnes, PT Evaluation Information Assessment Status Progress Diagnosis Left knee Pain, Left Hip Bursitis Onset 03/22/14 Subjective Information Reports that since starting therapy she is seeing some functional improvement. She continues to be limited most by pain which comes and goes with some good days and some bad days. Pain in back is a little better and overall gait cycle feels better. She feels that the cortisone injection in her hip this week did help with lateral hip pain. Would like to continue therapy as she feels she is making progress and would like to avoid surgery if at all possible. Assessment PT Clinical Summary Ms. Graff has seen significant improvement in LE strength, joint ROM, and mm flexibility which has improved overall gait pattern, functional strength, and body mechanics. She continues to be limited and inhibited by pain as her greatest consistent factor. The improvement in pain from cortisone injection is a positive movement in the right direction as it indicates that may be majority inflammation related but she still shows radiographic images of progressive joint arthritis. Will continue to benefit from skilled therapy to address deficits and maximize function for ADL and functional mobility progress. Plan of Care Interventions Electrical Stimulation,Hot Pack/Cold Pack,Manual Therapy,Neuro Re-education,Therapeutic Activities, Therapeutic Exercise PT Services Indicated Yes These treatments will address the objective and functional deficits as defined above. The patient will be advanced safely and appropriately in order for the patient to progress towards his/her prior level of function. Additional exercises will be introduced and as well as a comprehensive home exercise program upon discharge, if needed, ?to ensure carryover of functional gains achieved in the clinic. This treatment plan has been reviewed and agreement upon by the patient.
--- NOTE | 2022-11-06 10:25 | OPREHPOC ---
Outpatient Therapy Plan of Care This is a Multidisciplinary Plan of Care that may contain components documented by all disciplines (PT, OT, and ST.) PT Problem 1 PT Problem #1 Knowledge Deficit PT Goal 1 Goal Independent with hip mobilization and strengthening HEP Target Visit 12 Progress Met Comment Reflects HEP accountability PT Problem 2 PT Problem #2 Impaired Range of Motion PT Goal 1 Goal Improve angel knee ROM to 0 degrees to improve terminal stance Target Visit 16 Progress Not Met Comment Mild improvement but still significantly lacking from terminal PT Goal 2 Goal Improve L hip extension to 20 degrees to improve terminal stance of gait Target Visit 16 Progress Partially Met Comment Significant progress made but still lacking, limiting terminal stance PT Problem 3 PT Problem #3 Impaired Strength PT Goal 1 Goal Improve angel hip abduction strength to 4+/5 to improve lateral stability with gait Target Visit 16 Progress Partially Met Comment Progressing. Weakness still evident allowing for Trendelenburg gait
--- NOTE | 2022-11-11 14:36 | PCPTNOTE ---
Mrs. Hernandez did not show for her scheduled appointment on this date. She failed to contact the clinic.
--- NOTE | 2022-11-25 11:43 | PCPTNOTE ---
Mrs. Graff did not show for her scheduled appointment this date. Contacted the pt. via telephone to discuss her compliance and if she has intentions to attend her future appointments. Pt. did not answer and left a message to contact the clinic.
--- NOTE | 2022-12-07 10:03 | PTOPDC ---
Assessment and note entered by Chapin Barnes, PT Discharge Information Assessment Status Discharge Diagnosis Left knee Pain, Left Hip Bursitis Onset 03/22/14 Subjective Information Reports that since last progress note she has not seen much change. Still struggling with knee pain and altered gait pattern. She is following up with MD at this time and plans to continue HEP and consult on likelihood of choosing TKA if given the opportunity. Reported Pain Level Pain Score 2: Self Report Assessment PT Clinical Summary Patient has seen improvement in knee ROM, strength , and gross LE mobility/strength. She is still presenting with structural deficits of genu valgus and hip stress with gait pattern which continue to affect gross motor control and pain levels. We have discussed continuity of HEP and consultation with MD to consider TKA. Patient will be discharged from skilled care at this time. Plan of Care PT Services Indicated No
== END 2022-12-07 11:41 | disposition home or self-care (01) ==
LOC: ANHPT 09:00
PROVIDERS: Visit Provider Orthopaedic Surgery
DX: M17.12 Unilateral primary osteoarthritis, left knee (principal); M70.62 Trochanteric bursitis, left hip
CPT/HCPCS: 97110; 97112; 97140; 97161; 99199

== ENCOUNTER 2023-01-22 17:14 | Emergency (ER) | payer OTHER, SELFPAY ==
[2023-01-22 17:25] VITALS: O2SAT 100
[2023-01-22 17:27] VITALS: BP 133/79; PULSE 99; RESP 16; TEMP 36.5; O2SAT 100
--- NOTE | 2023-01-22 18:00 | ED.URI ---
HPI - URI/Sore Throat General Chief Complaint: Upper Respiratory Infection Stated Complaint: cough,congestion,sore throat Time Seen by Provider: 01/22/23 17:49 Source: patient and RN notes reviewed Mode of arrival: ambulatory Limitations: no limitations History of Present Illness HPI Narrative: Patient presents today with a 2 week history of cough, headache, wheezing, postnasal drip. Six days ago, her PCP put her on cefdinir, which she states has not improved her symptoms. She has also been using her rescue inhaler every 3-4 hours without much relief. She has also been using saline nasal spray, which has been helping moist in her nasal passages. History of asthma. Related Data Home Medications Medication Instructions Recorded Confirmed duloxetine 60 mg capsule,delayed 60 mg PO DAILY 12/18/20 12/31/22 release multivitamin 1 tablet PO DAILY 12/18/20 12/31/22 albuterol sulfate 90 mcg/actuation 2 puff inhalation DAILY PRN SOB 01/27/21 01/22/23 aerosol inhaler lorazepam 1 mg tablet 1 mg PO PRN PRN Anxiety 12/13/21 12/31/22 cholecalciferol (vitamin D3) 50 50 mcg PO DAILY 04/16/22 12/31/22 mcg (2,000 unit) capsule cyanocobalamin (vitamin B-12) 1,000 mcg PO DAILY 04/16/22 12/31/22 1,000 mcg tablet,extended release calcium carb-vit Z6-acxkqbrqv-qext 1 tablet PO BID 07/15/22 12/31/22 333 mg-200 unit-133 mg-5 mg tablet omega 6-sri-eyl-fish oil 100 cap PO BID 07/15/22 12/31/22 mg-160 mg-1,000 mg capsule (Fish Oil) cefdinir 300 mg capsule 300 mg PO BID 01/22/23 01/22/23 onabotulinumtoxinA 200 unit unit 01/22/23 solution for injection (Botox) Allergies Allergy/AdvReac Type Severity Reaction Status Date / Time adhesive tape AdvReac Severe Rash Verified 01/22/23 17:32 Review of Systems Review of Systems: CONSTITUTIONAL: Denies body aches, fever, chills, or sweats. EYES: Denies visual changes, redness, or discharge. ENT: Denies rhinorrhea, sore throat, or otalgia.+ congestion, postnasal drip CARDIOVASCULAR: Denies chest pain, palpitations, or edema. RESPIRATORY: + cough, wheezing GASTROINTESTINAL: Denies abdominal pain, nausea, vomiting, or diarrhea. GENITOURINARY: Denies dysuria or hematuria. SKIN: Denies rash, itching, or wounds. MUSCULOSKELETAL: Denies back pain, joint pain, or myalgia. NEUROLOGIC: Denies numbness, tingling, or weakness.+ headache PSYCH: Denies depression or anxiety. [facility] Past Medical History Medical History Anxiety Asthma Colon cancer screening History of ADHD History of migraine Surgical History Surgical History History of abdominoplasty 06/2015 History of section 02/22/98, 02/24/02 History of gastric surgery lap 02/2013 History of knee surgery R knee lateral release with scope 12/2008, L knee lateral release with scope 11/2009 History of laparoscopic cholecystectomy 11/2002 History of surgery uterine ablation 07/2016 Family History Family History Father Family history of congenital heart disease Family history of lung cancer Patient's father is Grandparent Family history of congenital heart disease Family history of osteoarthritis Other Family history of arthritis Family history of heart disease in male family member before age 55 Family history of kidney disease Hypertension Social History Social History Smoking status: Never smoker Alcohol intake: current Alcohol use details: socially Substance use: never Substance use type: does not use Lack of Transportation: No Lack of Food: Never True Current Housing: I Have Housing Concerned About Future Housing: No Difficulty Paying Gas/Electric Bills: No Difficulty Paying for Meds: No Currently Unemployed: N
== END 2023-01-22 18:06 | disposition home or self-care (01) ==
PROVIDERS: Emergency Provider Nurse Practitioner
DX: J40 Bronchitis, not specified as acute or chronic (principal); J45.909 Unspecified asthma, uncomplicated; F41.9 Anxiety disorder, unspecified
CPT/HCPCS: 99213; G0463

== ENCOUNTER 2023-01-28 19:36 | Observation (INO) | payer OTHER, SELFPAY ==
--- NOTE | ~2023-01-28 | XR_ITS ---
EXAMINATION: XR chest 2V DATE: 01/28/2023 20:12 INDICATION: Chest pain. Shortness of breath. TECHNIQUE: Frontal and lateral views of the chest were obtained. COMPARISON: Chest single view 09/07/2020, CT abdomen and pelvis 04/06/22 FINDINGS: There is no pneumonia, pleural effusion, or pneumothorax. The heart size is normal. IMPRESSION: 1. No acute cardiopulmonary disease. Reviewed, dictated and finalized at location E. [employer]WMAN
[2023-01-28 19:39] VITALS: BP 155/70; PULSE 94; RESP 18; TEMP 37.2; O2SAT 100
--- NOTE | 2023-01-28 19:45 | ECG_ITS ---
Measurements Intervals [place] Rate: 91 P: 38 DC: 149 QRS: 17 QRSD: 98 T: 18 QT: 345 QTc: 425 Interpretive Statements SINUS RHYTHM NORMAL ECG COMPARED TO ECG 07/22/2021 09:02:10 NO SIGNIFICANT CHANGES Electronically Signed On 01-29-2023 6:14:52 RAILROAD CAR LOADER by Ramos Castillo D.O.
[2023-01-28 19:59] LABS: Basophils Percent Auto 0.7 % (0.2-1.2); Eosinophils Absolute Auto 0.1 K/mm3 (0-0.3); Eosinophils Percent Auto 1.2 % (0-4.4); Hematocrit 32.6 % (37.0-47.0); Hemoglobin 10.5 g/dL (12.0-15.0); Immature Granulocyte Absolute 0.02 K/mm3 (0.00-0.031); Immature Granulocyte Percent A 0.3 % (0-0.5); Lymphocytes Absolute Auto 2.72 K/mm3 (0.9-3.2); Lymphocytes Percent Auto 46.2 % (18.3-44.2); Mean Corpuscular HGB Conc 32.2 g/dl (32-36); Mean Corpuscular Hemoglobin 30.4 pg (26-34); Mean Corpuscular Volume 94.5 fl (80-100); Mean Platelet Volume 8.8 fl (7.4-10.4); Monocytes Absolute Auto 0.4 K/mm3 (0.1-0.6); Neutrophils Absolute Auto 2.6 K/mm3 (1.3-6.7); Neutrophils Percent Auto 44.6 % (45.5-73.1); Platelet Count Result 227 k/mm3 (150-375); Red Blood Count 3.45 M/mm3 (4.2-5.4); Red Cell Distribution Width 12.2 % (11.5-14.5); White Blood Count 5.9 K/mm3 (4.5-10.0)
[2023-01-28 20:16] LABS: Alanine Aminotransferase 27 U/L (6-35); Albumin Level 2.6 g/dL (3.5-5.1); Alkaline Phosphatase 81 U/L (38-126); Anion Gap 4 mmol/L (8-16); Aspartate Amino Transferase 33 U/L (14-36); Bilirubin,Total 0.3 mg/dL (0.2-1.3); Blood Urea Nitrogen 10 mg/dL (7-17); Calcium 6.3 mg/dL (8.4-10.2); Carbon Dioxide 21 mmol/L (22-30); Chloride 116 mmol/L (98-107); Estimated CRCL calculation 113 ml/min; Estimated Glomerular Filt Rate > 60; Glucose 71 mg/dL (65-110); Lipase 236 U/L (23-300); Potassium 2.3 mmol/L (3.4-5.0); Sodium 141 mmol/L (137-145)
[2023-01-28 20:18] LABS: Partial Thromboplastin Time 28.6 SECONDS (22.3-36.8); Prothrombin Time 13.2 Seconds (11.1-14.7)
[2023-01-28 20:20] LABS: Troponin I < 0.012 ng/mL (0.000-0.034)
[2023-01-28] MEDS: POTASSIUM CHLORIDE 20 MEQ PACKET (FOR LIQUID) 40 MEQ PO (20:41)
--- NOTE | 2023-01-28 20:49 | ED.GENADULT ---
HPI - General Adult General Chief complaint: Unspecified Stated complaint: sob, chest tightness Time Seen by Provider: 01/28/23 20:20 History of Present Illness HPI narrative: Patient 52-year-old female who presents the emergency department with chief complaint of palpitations. The patient reports that she had an episode today where her heart rate became really slow that her heart rate sped up and then felt very fast patient states when her heart was beating fast she felt as though her chest was tight and she got a little short of breath at that time patient reports that the symptoms have resolved at this point states that she has had some episodes with dysrhythmias in the past but has not had an episode where she was diagnosed with a ventricular dysrhythmia. Related Data Home Medications Medication Instructions Recorded Confirmed duloxetine 60 mg capsule,delayed 60 mg PO DAILY 12/18/20 12/31/22 release multivitamin 1 tablet PO DAILY 12/18/20 12/31/22 albuterol sulfate 90 mcg/actuation 2 puff inhalation DAILY PRN SOB 01/27/21 01/22/23 aerosol inhaler lorazepam 1 mg tablet 1 mg PO PRN PRN Anxiety 12/13/21 12/31/22 cholecalciferol (vitamin D3) 50 50 mcg PO DAILY 04/16/22 12/31/22 mcg (2,000 unit) capsule cyanocobalamin (vitamin B-12) 1,000 mcg PO DAILY 04/16/22 12/31/22 1,000 mcg tablet,extended release calcium carb-vit [id number]-[id number]-vvpi 1 tablet PO BID 07/15/22 12/31/22 333 mg-200 unit-133 mg-5 mg tablet omega 0-qul-xim-fish oil 100 cap PO BID 07/15/22 12/31/22 mg-160 mg-1,000 mg capsule (Fish Oil) cefdinir 300 mg capsule 300 mg PO BID 01/22/23 01/22/23 onabotulinumtoxinA 200 unit unit 01/22/23 solution for injection (Botox) Allergies Allergy/AdvReac Type Severity Reaction Status Date / Time adhesive tape AdvReac Severe Rash Verified 01/22/23 17:32 Review of Systems Review of Systems: A 10 system review of systems was completed on the patient and is negative except for what is stated in the HPI. Nursing and ancillary documentation was reviewed. PMFSH Past Medical History Medical History Anxiety Asthma Colon cancer screening History of ADHD History of migraine Surgical History Surgical History History of abdominoplasty 06/2015 History of section 02/22/98, 02/24/02 History of gastric surgery lap 02/2013 History of knee surgery R knee lateral release with scope 12/2008, L knee lateral release with scope 11/2009 History of laparoscopic cholecystectomy 11/2002 History of surgery uterine ablation 07/2016 Family History Family History Father Family history of congenital heart disease Family history of lung cancer Patient's father is Grandparent Family history of congenital heart disease Family history of osteoarthritis Other Family history of arthritis Family history of heart disease in male family member before age 55 Family history of kidney disease Hypertension Social History Social History Smoking status: Never smoker Alcohol intake: current Alcohol use details: socially Substance use: never Substance use type: does not use Lack of Transportation: No Lack of Food: Never True Current Housing: I Have Housing Concerned About Future Housing: No Difficulty Paying Gas/Electric Bills: No Difficulty Paying for Meds: No Currently Unemployed: No Education: Trade/Vocational Certificate Difficulty w/ Childcare or Family Care: No Living arrangements: with family Spiritual care concerns: No Exam Narrative: GENERAL: Well-appearing, well-nourished, and in no acute distress. HEAD: Normocephalic, atraumatic. EYES: PERRLA and EOMI. ENT: Nares clear, no rhinorrhe
[2023-01-28] MEDS: KCL 20 MEQ/SW 100 ML 100 ML 50 MEQ IVPB (21:01)
[2023-01-28] MEDS: SODIUM CHLORIDE 0.9% IV 250 ML ×2 (21:02→23:33)
[2023-01-28 22:49] LABS: Magnesium 2.1 mg/dL (1.6-2.3)
[2023-01-28 22:52] VITALS: BP 136/88; PULSE 74; RESP 15; O2SAT 100
[2023-01-28 23:33] LABS: Troponin I 0.018 ng/mL (0.000-0.034)
[2023-01-29] VITALS (23 sets, daily range): BP systolic 117–138; BP diastolic 57–88; PULSE 67–99; RESP 14–20; TEMP 36.3–36.6; O2SAT 95–100; BMI 34.7
--- NOTE | 2023-01-29 | ECHO_ITS ---
Patient Info Name: Ofelia Graff Age: 52 years : 1970 Gender: Female Ht: 67 in Wt: 221 lbs BSA: 2.22 m2 HR: 78 bpm BP: 127 / 80 mmHg Heart Rhythm: Sinus Rhythm Technical Quality: Fair Exam Date: 01/29/2023 11:23 AM Exam Location: Echo Lab Exam Room: [facility] Patient Status: Inpatient Admit Date: 01/28/2023 Staff Ordering Physician: Tiana Starr MD Sausage Mixer: Katelynn Gates RDCS Attending Provider: Shonda Cedeño MD Exam Type: CA echo doppler color flow Study Info Indications - HYPOKALEMIA PALPITATIONS R07.9 - Chest pain, unspecified Complete two-dimensional, color flow and Doppler transthoracic echocardiogram is performed. Summary 1. Complete two-dimensional, color flow and Doppler transthoracic echocardiogram is performed. 2. Left ventricular chamber dimension is normal. 3. Left ventricular systolic function is normal, estimated at 65-70%. 4. The left ventricular diastolic function is grade I diastolic dysfunction. 5. Right ventricular systolic function is normal. 6. There is mild tricuspid valve regurgitation. Left Ventricle Left ventricular chamber dimension is normal. Left ventricular systolic function is normal, estimated at 65-70%. There is no increased left ventricular wall thickness. The left ventricular diastolic function is grade I diastolic dysfunction. Right Ventricle Right ventricular chamber dimension is normal. Right ventricular systolic function is normal. Left Atria Left atrial chamber dimension is normal. Right Atria Right atrial chamber dimension is normal. Atrial Septum Intact interatrial septum visualized by color flow imaging. Aortic Valve The aortic valve is probable trileaflet. There is mild aortic valve sclerosis. There is no aortic valve stenosis. There is no aortic valve regurgitation. Pulmonic Valve The pulmonic valve is not well visualized. Mitral Valve There is trace mitral valve regurgitation. Tricuspid Valve There is mild tricuspid valve regurgitation. Pericardium/Pleural There is no pericardial effusion. Inferior Vena Cava Normal inferior vena cava with >50% collapse upon inspiration consistent with normal right atrial pressure, 3 mmHg. Aorta The aortic root size at the sinus of Valsalva is normal. Left Ventricular Outflow Tract Name Value Normal LVOT 2D LVOT Diameter 2.0 cm LVOT Doppler LVOT Peak Gradient 6 mmHg LVOT Mean Gradient 4 mmHg LVOT VTI 26 cm LVOT VTI/AV VTI Ratio 1.0 LVOT Stroke Volume 83 ml LVOT CO 17.2 l/min LVOT CI 7.8 l/min/m2 Pulmonic Valve Name Value Normal RVOT Doppler RVOT Peak Gradient 2 mmHg PV Doppler PV Peak Gradient
[2023-01-29] MEDS: ALBUTEROL SULFATE (*SP) AEROSOL 1 PUFF 2 PUFF INHALATION (01:48)
[2023-01-29 02:49] LABS: Troponin I 0.021 ng/mL (0.000-0.034)
--- NOTE | 2023-01-29 03:05 | PM.IMHP ---
H&P: HPI History of Present Illness Date/Time: 01/29/23 03:05 Chief Complaint: SOB/Chest tightness/palpitations Narrative: Patient 52-year-old female who presents the emergency department with chief complaint of palpitations.? The patient reports that she had an episode today where her heart rate became really slow then became fast, patient states when her heart was beating fast she felt as though her chest was tight and she got a little short of breath at that time patient reports that the symptoms have resolved at this point, states that she has had some episodes with dysrhythmias in the past and had to wore holter moniting and she was michael;d that she had a benign arrythmia. She said that episode today is severe. She was evaluated and found to have hypokalemia of 2.3 and hypocalcemia( corrceted calcium of 7.4). i was called to admit patient for observation. She denied any symptom currently Review of Systems Review of Systems: All systems reviewed & are unremarkable except as noted in HPI and below PMFSH Past Medical History Medical History Anxiety Asthma Colon cancer screening History of ADHD History of migraine Surgical History Surgical History History of abdominoplasty 06/2015 History of section 02/22/98, 02/24/02 History of gastric surgery lap 02/2013 History of knee surgery R knee lateral release with scope 12/2008, L knee lateral release with scope 11/2009 History of laparoscopic cholecystectomy 11/2002 History of surgery uterine ablation 07/2016 Family History Family History Father Family history of congenital heart disease Family history of lung cancer Patient's father is Grandparent Family history of congenital heart disease Family history of osteoarthritis Other Family history of arthritis Family history of heart disease in male family member before age 55 Family history of kidney disease Hypertension Social History Social History Smoking status: Never smoker Alcohol intake: current Alcohol use details: socially Substance use: never Substance use type: does not use Lack of Transportation: No Lack of Food: Never True Current Housing: I Have Housing Concerned About Future Housing: No Difficulty Paying Gas/Electric Bills: No Difficulty Paying for Meds: No Currently Unemployed: No Education: Trade/Vocational Certificate Difficulty w/ Childcare or Family Care: No Living arrangements: with family Spiritual care concerns: No Meds Home Medications and Allergies Home Medications Medication Instructions Recorded Confirmed Type duloxetine 60 mg capsule,delayed 60 mg PO DAILY 12/18/20 12/31/22 History release multivitamin 1 tablet PO DAILY 12/18/20 12/31/22 History albuterol sulfate 90 mcg/actuation 2 puff inhalation DAILY PRN SOB 01/27/21 01/22/23 History aerosol inhaler lorazepam 1 mg tablet 1 mg PO PRN PRN Anxiety 12/13/21 12/31/22 History cholecalciferol (vitamin D3) 50 50 mcg PO DAILY 04/16/22 12/31/22 History mcg (2,000 unit) capsule cyanocobalamin (vitamin B-12) 1,000 mcg PO DAILY 04/16/22 12/31/22 History 1,000 mcg tablet,extended release calcium carb-vit J8-zixzesppw-full 1 tablet PO BID 07/15/22 12/31/22 History 333 mg-200 unit-133 mg-5 mg tablet omega 1-rvk-wyc-fish oil 100 cap PO BID 07/15/22 12/31/22 History mg-160 mg-1,000 mg capsule (Fish Oil) CPAP Equipment #1 ea 08/31/22 12/31/22 Rx CPAP Mask Refit #1 ea 11/03/22 12/31/22 Rx CPAP Equipment #1 ea 12/22/22 12/31/22 Rx cefdinir 300 mg capsule 300 mg PO BID 01/22/23 01/22/23 History levofloxacin 750 mg tablet 750 mg PO DAILY 5 days #5 tabs 01/22/23 Rx onabotulinumtoxinA 200 unit unit 01/22/23 His
[2023-01-29] MEDS: CALCIUM GLUC 2,000 MG/NS 100ML 2,000 MG/100 ML BAG 100 MG IVPB (03:38)
[2023-01-29] MEDS: POTASSIUM CHLORIDE 20 MEQ PACKET (FOR LIQUID) 40 MEQ PO (03:39)
[2023-01-29] MEDS: KCL 20 MEQ/SW 100 ML 100 ML 50 MEQ IVPB (03:39)
[2023-01-29] MEDS: LORazepam (*CRX) 1 MG TABLET PO ×2 (04:07→21:51)
[2023-01-29] MEDS: IPRATROPIUM BR 0.02% INH SOLN 0.5 MG/2.5 ML VIAL INHALATION ×3 (04:15→11:23)
[2023-01-29] MEDS: ALBUTEROL SULFATE NEB 2.5 MG/3 ML INH INHALATION ×3 (04:15→11:23)
[2023-01-29 05:33] LABS: Basophils Absolute Auto 0.1 K/mm3 (0.0-0.1); Basophils Percent Auto 1.1 % (0.2-1.2); Eosinophils Absolute Auto 0.1 K/mm3 (0-0.3); Eosinophils Percent Auto 1.5 % (0-4.4); Hematocrit 38.4 % (37.0-47.0); Hemoglobin 12.2 g/dL (12.0-15.0); Immature Granulocyte Absolute 0.02 K/mm3 (0.00-0.031); Immature Granulocyte Percent A 0.3 % (0-0.5); Lymphocytes Absolute Auto 3.48 K/mm3 (0.9-3.2); Lymphocytes Percent Auto 47.5 % (18.3-44.2); Mean Corpuscular HGB Conc 31.8 g/dl (32-36); Mean Corpuscular Hemoglobin 29.5 pg (26-34); Mean Corpuscular Volume 92.8 fl (80-100); Mean Platelet Volume 8.6 fl (7.4-10.4); Monocytes Absolute Auto 0.5 K/mm3 (0.1-0.6); Monocytes Percent Auto 6.5 % (2.6-8.5); Neutrophils Absolute Auto 3.2 K/mm3 (1.3-6.7); Neutrophils Percent Auto 43.1 % (45.5-73.1); Platelet Count Result 273 k/mm3 (150-375); Red Blood Count 4.14 M/mm3 (4.2-5.4); Red Cell Distribution Width 12.2 % (11.5-14.5); White Blood Count 7.3 K/mm3 (4.5-10.0)
[2023-01-29] MEDS: SODIUM CHLORIDE 0.9% IV 500 ML (05:34)
[2023-01-29 05:45] LABS: Anion Gap 10 mmol/L (8-16); Blood Urea Nitrogen 16 mg/dL (7-17); Calcium 9.3 mg/dL (8.4-10.2); Carbon Dioxide 25 mmol/L (22-30); Chloride 104 mmol/L (98-107); Estimated CRCL calculation 78 ml/min; Estimated Glomerular Filt Rate > 60; Glucose 159 mg/dL (65-110); Sodium 139 mmol/L (137-145)
--- NOTE | 2023-01-29 10:45 | PC.NURSE ---
ADMISSION DATA COMPLETE. CONDITION UPDATE CALLED TO DR. THORPE. ORDERS RECEIVED TO CONSULT CARDIOLOGY MYSQL DATABASE ADMINISTRATOR, GET ECHO AND STRESS TEST. KEEP PT. NPO FOR NOW. PT. NOTIFIED OF NEW ORDERS AND AGREEABLE.
--- NOTE | 2023-01-29 10:50 | PC.NURSE ---
UPDATE CALLED TO HOSPITALIST, DR. THORPE. NOTIFIED NO CONSULT FOR DYNAMIC BALANCER FOUND IN ORDERS TOLD IN REPORT. ORDERS RECEIVED TO CONSULT CARDIOLOGY SHELL COREMAKER, OBTAIN CARDIAC ECHO, AND TREADMILL STRESS TEST. KEEP PT. NPO FOR NOW.
--- NOTE | 2023-01-29 11:00 | PC.NURSE ---
CARDIOLOGY CONSULT CALLED TO ALANNAH AGUILAR NP FOR [facility] CARDIOLOGY AND DR. SILVA.
--- NOTE | 2023-01-29 11:06 | PC.NURSE ---
CARDIOLOGY CONSULT FOR DR. SILVA CALLED TO ALANNAH AGUILAR NP.
--- NOTE | 2023-01-29 11:50 | PC.NURSE ---
ECHO COMPLETED BEDSIDE. DR. THORPE HERE TO SEE PT. UPDATE GIVEN. NOTIFIED OF C/O HEADACHE AND REQUESTED HOME MEDS BE ORDERED. ORDERS RECEIVED.
--- NOTE | 2023-01-29 13:05 | PC.NURSE ---
Mame Jung EMBEDDED SYSTEMS SOFTWARE ENGINEER here to see pt for cardiology consultation. Stress test cancelled.
--- NOTE | 2023-01-29 13:13 | PM.CNCAR ---
Assessment and Plan Assessment and plan (1) Palpitations: Code(s): R00.2 - Palpitations Status: Acute Assessment and Plan: Episode of palpitations yesterday with associated chest pain and shortness of breath. Spontaneous resolution of symptoms and no recurrence thus far. Possibly an episode of SVT, but no telemetry available to confirm this. She was significantly hypokalemic on presentation, potassium 2.3. This certainly could have triggered a tachyarrhythmia. Potassium has been repleted. Echocardiogram has been ordered will be reviewed. (2) Chest pain: Code(s): R07.9 - Chest pain, unspecified Status: Acute Assessment and Plan: Episode of chest pain during an episode of palpitations. She has not had any chest pain since palpitations resolved. EKG personally reviewed shows sinus rhythm with no ischemic changes. Her troponin levels are negative. She does have family history of coronary artery disease in second-degree relatives. She does not have any other risk factors. Chest pain most likely secondary to tachycardia. No need for inpatient ischemic evaluation. Can consider this as an outpatient to risk stratify her for coronary artery disease. (3) Acute hypokalemia: Code(s): E87.6 - Hypokalemia Status: Acute Assessment and Plan: Etiology unclear. Denies any recent vomiting or diarrhea. She does not take any diuretics. Her magnesium was normal. Further workup per hospitalist. History of Present Illness History of Present Illness Consult date/time: 01/29/23 13:13 Requesting physician: Tiana Starr MD Consult reason: chest pain and Other (palpitations) Reason For Visit: Chest Pain/Palpitations/Hypokalemia Narrative: Ofelia Graff is a 52-year-old female admitted with palpitations. This is a patient with a history of palpitations formerly seen by Dr. Carroll and also Dr. Osborne. She has a history of sinus bradycardia with idioventricular escape rhythm demonstrated on an outpatient grain trimmer in 2014. She was last seen for this problem in 2018 and has not had any cardiac problems since that time. Yesterday, she had an episode of palpitations while sitting at home on the couch. She had a sudden onset of palpitations and was experiencing some chest tightness and shortness of breath. She called EMS and right when EMS arrived, her symptoms resolved and she tells me that the EMS personnel noted that she was in a normal rhythm when she was connected to the monitor. EMS report notes sinus tachycardia when connected to the monitor but no rhythm strips are available. Since hospital admission she has been asymptomatic. Review of Systems Review of Systems: All systems reviewed & are unremarkable except as noted in HPI and below PMFSH Past Medical History Medical History Anxiety Asthma Colon cancer screening History of ADHD History of migraine Surgical History Surgical History History of abdominoplasty 06/2015 History of section 02/22/98, 02/24/02 History of gastric surgery lap 02/2013 History of knee surgery R knee lateral release with scope 12/2008, L knee lateral release with scope 11/2009 History of laparoscopic cholecystectomy 11/2002 History of surgery uterine ablation 07/2016 Family History Family History Father Family history of congenital heart disease Family history of lung cancer Patient's father is Grandparent Family history of congenital heart disease Family history of osteoarthritis Other Family history of arthritis Family history of heart disease in male family member before age 55 Family history of kidney disease Hypertension Social History Social History Smoking status:
--- NOTE | 2023-01-29 13:45 | PC.NURSE ---
PER OK FROM CADIOLOGY AUTO SUSPENSION AND STEERING MECHANIC, ALANNAH AGUILAR, PT. TOOK PRE-PACKAGED/LABELED DOSE OF RIZATRIPTAN 10MG PO FOR C/O HEADACHE.
--- NOTE | 2023-01-29 14:30 | PC.NURSE ---
STATES THAT AFTER EATING LUNCH AND TAKING ONE TIME DOSE OF RIZATRIPTAN 10MG PO, HEADACHE RESOLVED. DENIES CP OR SOB.
--- NOTE | 2023-01-29 15:02 | ADMGEN ---
Addendum entered by Marie Iglesias RN 01/29/23 15:32: PT. ARRIVAL TO [facility] IMU OF OBS. FROM ED BOARDING AT 0900 01/29/23. Original Note: This patient, Ofelia Graff, was admitted to [facility] via bed as IMU obs overflow from boarding in ED. Denies cp or sob on arrival. Reports headache as only c/o at this time. Patient/family oriented to hospital policies and general routines including ID bracelet, bed and alarms, visiting hours, pain management, procedures, bathroom and other care routines, personal items, smoking policy, room service/diet, and visiting hours. Information on how to activate the Rapid Response Team has been discussed. Patient/Family are encouraged to report perceived risks to care and to ask questions if they do not understand what they are told or what they should do.
--- NOTE | 2023-01-29 17:16 | PM.IMPN ---
Progress Note: A&P Assessment and Plan (1) Acute hypokalemia: Code(s): E87.6 - Hypokalemia Status: Acute (2) Palpitations: Code(s): R00.2 - Palpitations Status: Acute (3) Chest pain: Code(s): R07.9 - Chest pain, unspecified Status: Acute Plan F/u ECHO COntinue potassium replacement and monitor, Serum mag ordered Cardiology eval appreciated, recommends further ischemic workup outpatient continue home meds DVT prophylaxis Sq Lovenox Subjective Date/time seen: 01/29/23 17:16 Interval history: patient noted chest pain has resolved potassium improved with replacement Cardiology eval noted ECHO suffices for now and further ischemic eval will be outpatient, awaiting result of ECHO Review of Systems Review of Systems: All systems reviewed & are unremarkable except as noted in HPI and below Exam Narrative: GENERAL: Well-appearing, well-nourished, and in no acute distress. HEAD: Normocephalic, atraumatic. EYES: PERRLA and EOMI. ENT: Nares clear, no rhinorrhea or epistaxis.? Mucous membranes moist. NECK: Supple. CHEST: Clear to auscultation.? No respiratory distress. HEART: Regular rate and rhythm.? No murmur heard.? Normal peripheral pulses. ABDOMEN: Soft, nontender, nondistended, normal active bowel sounds. EXTREMITIES: Normal range of motion.? No edema. SKIN: Warm, dry, no rash. NEURO: No focal deficits.? Alert and oriented x3. PSYCH: Normal mood and affect. Objective Data Vital Signs Vital Signs: Vital Signs - 24 hr 01/28/23 19:39 01/28/23 22:52 01/29/23 02:37 Temperature 98.9 F Pulse Rate 94 74 76 Respiratory Rate 18 15 20 Blood Pressure 155/70 H 136/88 Pulse Oximetry 100 100 98 Oxygen Delivery Room Air CPAP 01/29/23 03:42 01/29/23 04:18 01/29/23 04:25 Temperature Pulse Rate 72 67 70 Respiratory Rate 15 16 14 Blood Pressure 138/88 Pulse Oximetry 100 Oxygen Delivery 01/29/23 05:48 01/29/23 07:30 01/29/23 08:00 Temperature Pulse Rate 88 78 72 Respiratory Rate 15 16 14 Blood Pressure 130/82 129/67 124/80 Pulse Oximetry 100 100 100 Oxygen Delivery 01/29/23 08:30 01/29/23 07:40 01/29/23 07:40 Temperature Pulse Rate 78 75 75 Respiratory Rate 17 18 18 Blood Pressure 127/80 Pulse Oximetry 100 100 Oxygen Delivery Room Air 01/29/23 07:50 01/29/23 11:23 01/29/23 11:36 Temperature Pulse Rate 76 73 79 Respiratory Rate 18 20 20 Blood Pressure Pulse Oximetry Oxygen Delivery 01/29/23 10:00 01/29/23 09:25 01/29/23 09:30 Temperature 97.3 F L Pulse Rate 74 80 Respiratory Rate 20 Blood Pressure 117/84 Pulse Oximetry 97 Oxygen Delivery Room Air 01/29/23 12:00 01/29/23 12:30 01/29/23 10:00 Temperature Pulse Rate 81 79 73 Respiratory Rate 18 18 Blood Pressure 122/77 124/74 Pulse Oximetry 96 98 Oxygen Delivery 01/29/23 12:30 01/29/23 14:00 01/29/23 15:10 Temperature Pulse Rate 84 99 Respiratory Rate 20 Blood Pressure 127/75 Pulse Oximetry 98 Oxygen Delivery Room Air Intake/Output Intake/Output: Intake & Output 01/26/23 01/27/23 01/28/23 01/29/23 23:59 23:59 23:59 23:59 Intake Total 250 1450 Balance 250 1450 Meds/Results Medications: Active Medications Generic Name Dose Route Start Last Admin Trade Name Freq PRN Reason Stop Dose Admin Acetaminophen 650 mg 01/29/23 03:01 Acetaminophen 325 Mg Tablet PO Q4H PRN Mild Pain (1-3) or Fever Acetaminophen/Codeine Phosphate 1 tab 01/29/23 12:16 Acetaminophen/Codeine (*Crx) 300/30 Mg Tablet PO Q4H PRN Pain Rated 4-6 Albuterol 2 puff 01/29/23 01:30 01/29/23 01:48 Albuterol Sulfate (*Sp) Aerosol 1 Puff INHALATION 2 puff Q6HRT PRN Administration Shortness Of Breath Aspirin 81 mg 01/29/23 08:00 Aspirin 81 Mg Chewable Tablet PO DAILY@0800 [facility] Perflutren Lipid Microsphere 0 ml 01/29/23 10:47 Perflutren Lipid Micros
[2023-01-29] MEDS: ASPIRIN 81 MG CHEWABLE TABLET PO (17:25)
--- NOTE | 2023-01-29 18:05 | PC.NURSE ---
ECHO REPORT JUST AVAILABLE; RESULTS CALLED TO DR. THORPE AND CONDITION UPDATE GIVEN. NOTIFIED HIM PT HAS VOIDED AT LEAST 8 TIMES TODAY IN TOILET. ALSO REMINDED HIM THAT PT. HAS HAD GASTRIC BYPASS. PT. HAS HAD NO C/O OF PALPITATIONS, SOB, CP OR HEAVINESS IN CHEST THIS SHIFT. MONITOR NSR THROUGHOUT SHIFT IN TECHNICAL SPEC. DR. THORPE STATES HE WANTS TO KEEP PT. OVERNIGHT IMU STATUS FOR OBSERVATION AND LABS IN AM. PT. NOTIFIED OF DR. THORPE'S PLAN FOR OVERNIGHT STAY; PT. ACCEPTING OF SUCH. PT. WILL TRANSFER TO IMU 210 FOR BALANCE OF STAY.
--- NOTE | 2023-01-29 18:30 | PC.NURSE ---
REPORT CALLED TO KRISTI Fragoso RN IN IMU. PT. IS TO REMAIN IMU STATUS AND TRANSFER TO IMU 210.
--- NOTE | 2023-01-29 18:55 | PC.NURSE ---
PT. TRANSFERRED FROM [facility] TO IMU 210 VIA WC ON TELE MONITOR AT THIS TIME BY LEN ALBARRAN AND KRISTI Fragoso RN. ALL PERSONAL BELONGINGS SENT W/ PT. CPAP AND ALL DOCUMENTATION SENT W/ STAFF. FAMILY AT SIDE. VOICES NO C/O AT THIS TIME. NO DISTRESS NOTED.
--- NOTE | 2023-01-29 18:56 | PC.NURSE ---
Addendum entered by Keely Pagan RN 01/29/23 18:59: Pt was admitted to [facility] as IMU overflow this morning. Original Note: This patient, Ofelia Graff, was transferred to [[facility] ] on 01/29/23 at 1856. Personal belongings sent with patient. Report given to [GENEVA Salazar @ [phone] ]. Appropriate documentation sent with patient.
[2023-01-29] MEDS: DULoxetine HCL 60 MG CAPSULE.DR PO (21:50)
[2023-01-30] VITALS (8 sets, daily range): BP systolic 115–122; BP diastolic 63–69; PULSE 58–75; RESP 16–18; TEMP 36.4–36.6; O2SAT 92–98
[2023-01-30 04:38] LABS: Basophils Absolute Auto 0.1 K/mm3 (0.0-0.1); Basophils Percent Auto 1.1 % (0.2-1.2); Eosinophils Absolute Auto 0.2 K/mm3 (0-0.3); Eosinophils Percent Auto 3.5 % (0-4.4); Hematocrit 39.2 % (37.0-47.0); Hemoglobin 12.6 g/dL (12.0-15.0); Immature Granulocyte Absolute 0.02 K/mm3 (0.00-0.031); Immature Granulocyte Percent A 0.3 % (0-0.5); Lymphocytes Absolute Auto 3.06 K/mm3 (0.9-3.2); Lymphocytes Percent Auto 46.3 % (18.3-44.2); Mean Corpuscular HGB Conc 32.1 g/dl (32-36); Mean Corpuscular Volume 93.3 fl (80-100); Mean Platelet Volume 8.4 fl (7.4-10.4); Monocytes Absolute Auto 0.5 K/mm3 (0.1-0.6); Monocytes Percent Auto 8.2 % (2.6-8.5); Neutrophils Absolute Auto 2.7 K/mm3 (1.3-6.7); Neutrophils Percent Auto 40.6 % (45.5-73.1); Platelet Count Result 272 k/mm3 (150-375); Red Cell Distribution Width 12.5 % (11.5-14.5); White Blood Count 6.6 K/mm3 (4.5-10.0)
[2023-01-30 04:49] LABS: Alanine Aminotransferase 34 U/L (6-35); Albumin Level 3.9 g/dL (3.5-5.1); Alkaline Phosphatase 110 U/L (38-126); Anion Gap 7 mmol/L (8-16); Aspartate Amino Transferase 31 U/L (14-36); Bilirubin,Total 0.4 mg/dL (0.2-1.3); Blood Urea Nitrogen 14 mg/dL (7-17); Calcium 8.9 mg/dL (8.4-10.2); Carbon Dioxide 28 mmol/L (22-30); Chloride 103 mmol/L (98-107); Estimated CRCL calculation 115 ml/min; Estimated Glomerular Filt Rate > 60; Glucose 89 mg/dL (65-110); Magnesium 2.2 mg/dL (1.6-2.3); Potassium 4.1 mmol/L (3.4-5.0); Sodium 138 mmol/L (137-145)
[2023-01-30] MEDS: ENOXAPARIN 40 MG/0.4 ML SYRINGE SUB-Q (09:03)
[2023-01-30] MEDS: OMEGA 3 POLYUNSAT FATTY ACIDS 1 GM CAP PO (09:03)
[2023-01-30] MEDS: MULTIVITAMINS THERAPEUTIC TAB (*BKC) 1 TABLET PO (09:03)
[2023-01-30] MEDS: DULoxetine HCL 60 MG CAPSULE.DR PO (09:04)
[2023-01-30] MEDS: ASPIRIN 81 MG CHEWABLE TABLET PO (09:04)
[2023-01-30] MEDS: CHOLECALCIFEROL 1,000 UNITS TABLET 2000 UNITS PO (09:04)
[2023-01-30] MEDS: CYANOCOBALAMIN 1,000 MCG TABLET 1000 MCG PO (09:04)
--- NOTE | 2023-01-30 09:33 | PM.DS ---
DS: Admitting Diagnosis Discharge Date 01/30/2023 Admitting Diagnosis Palpitation DS: Discharge Diagnosis Discharge Diagnosis (1) Acute hypokalemia: Code(s): E87.6 - Hypokalemia Status: Acute (2) Palpitations: Code(s): R00.2 - Palpitations Status: Acute (3) Chest pain: Code(s): R07.9 - Chest pain, unspecified Status: Acute DS: Summary Hospital Course Hospital Course: 52-year-old female presented with palpitation. She feels a little chest tightness and fell which short of breath. She had previous episodes of dysrhythmias in the past. She had Holter monitor in the past however no evidence of any significant arrhythmia was found. She was noted to be hypokalemic and hypocalcemic in the ED and was admitted for observation. Cardiology was consulted. Serial troponin was negative. Echocardiogram was performed with normal EF grade 1 diastolic dysfunction mild TR. Okay per Cardiology to be discharged. She will continue to follow up with Cardiology as an outpatient basis. Time Spent with Patient Time attestation: Total time spent providing and/or coordinating discharge services: 35 minutes Exam Narrative: GENERAL: Well-appearing, well-nourished, and in no acute distress. HEAD: Normocephalic, atraumatic. EYES: PERRLA and EOMI. ENT: Nares clear, no rhinorrhea or epistaxis.? Mucous membranes moist. NECK: Supple. CHEST: Clear to auscultation.? No respiratory distress. HEART: Regular rate and rhythm.? No murmur heard.? Normal peripheral pulses. ABDOMEN: Soft, nontender, nondistended, normal active bowel sounds. EXTREMITIES: Normal range of motion.? No edema. SKIN: Warm, dry, no rash. NEURO: No focal deficits.? Alert and oriented x3. PSYCH: Normal mood and affect. DS: Data Data Completed and Pending Completed studies during hospitalization: Exam Type: ? ? CA echo doppler color flow Study Info Indications ?? ? - HYPOKALEMIA PALPITATIONS ? ? R07.9 - Chest pain,? unspecified Complete two-dimensional, color flow and Doppler transthoracic echocardiogram is performed. Account #: ? ? [id number] Summary ? 1. Complete two-dimensional, color flow and Doppler transthoracic echocardiogram is performed. ? 2. Left ventricular chamber dimension is normal. ? 3. Left ventricular systolic function is normal, estimated at 65-70%. ? 4. The left ventricular diastolic function is grade I diastolic dysfunction. ? 5. Right ventricular systolic function is normal. ? 6. There is mild tricuspid valve regurgitation. Left Ventricle ? Left ventricular chamber dimension is normal. ? Left ventricular systolic function is normal, estimated at 65-70%. ? There is no increased left ventricular wall thickness. ? The left ventricular diastolic function is grade I diastolic dysfunction. Right Ventricle ? Right ventricular chamber dimension is normal. ? Right ventricular systolic function is normal. Left Atria ? Left atrial chamber dimension is normal. Right Atria ? Right atrial chamber dimension is normal. Atrial Septum ? Intact interatrial septum visualized by color flow imaging. Aortic Valve ? The aortic valve is probable trileaflet. ? There is mild aortic valve sclerosis. ? There is no aortic valve stenosis. ? There is no aortic valve regurgitation. Pulmonic Valve ? The pulmonic valve is not well visualized. Mitral Valve ? There is trace mitral valve regurgitation. Tricuspid Valve ? There is mild tricuspid valve regurgitation. Pericardium/Pleural ? There is no pericardial effusion. Inferior Vena Cava ? Normal inferior vena cava with >50% collapse upon inspiration consistent with normal right atrial pressure, 3 mmHg. Aorta ? The aortic root size at the sinus of Valsalva is normal. Labs on day of discharge: Labs from last 24 hours 01/30/23 04:23 WBC 6.6 RBC 4.20 Hgb 12.6 Hct 39.2 MCV 93.3 MCH 30.0 MCHC 32.1 RDW 12.5 Plt Count 272 MPV 8.4 Im
--- NOTE | 2023-01-30 10:33 | PM.PNCARD ---
Progress Note: A&P Assessment and Plan (1) Palpitations: Code(s): R00.2 - Palpitations Status: Acute Assessment and Plan: Episode of palpitations with associated chest pain and shortness of breath.? Spontaneous resolution of symptoms and no recurrence thus far.? Possibly an episode of SVT, but no telemetry available to confirm this.? She was significantly hypokalemic on presentation, potassium 2.3.? This certainly could have triggered a tachyarrhythmia.? Potassium has been repleted.? Echocardiogram is unremarkable. No further inpatient cardiac evaluation. (2) Chest pain: Code(s): R07.9 - Chest pain, unspecified Status: Acute Assessment and Plan: Episode of chest pain during an episode of palpitations.? She has not had any chest pain since palpitations resolved.? EKG personally reviewed shows sinus rhythm with no ischemic changes.? Her troponin levels are negative.? She does have family history of coronary artery disease in second-degree relatives.? She does not have any other risk factors.? Chest pain most likely secondary to tachycardia.? No need for inpatient ischemic evaluation.? Can consider this as an outpatient to risk stratify her for coronary artery disease. Plan Okay to discharge home from a Cardiology standpoint. Will arrange follow up in our office. Recommendations/Plan discussed with Hospitalist. Subjective Date/time seen: 01/30/23 10:33 Interval history: Reason for visit: Chest pain / Palpitations / Hypokalemia HPI: Ofelia Graff is a 52-year-old female admitted with palpitations.? This is a patient with a history of palpitations formerly seen by Dr. Carroll and also Dr. Osborne.? She has a history of sinus bradycardia with idioventricular escape rhythm demonstrated on an outpatient residential monitor in 2014.? She was last seen for this problem in 2018 and has not had any cardiac problems since that time.? Yesterday, she had an episode of palpitations while sitting at home on the couch.? She had a sudden onset of palpitations and was experiencing some chest tightness and shortness of breath.? She called EMS and right when EMS arrived, her symptoms resolved and she tells me that the EMS personnel noted that she was in a normal rhythm when she was connected to the monitor.? EMS report notes sinus tachycardia when connected to the monitor but no rhythm strips are available.? Since hospital admission she has been asymptomatic. Date of service 01/30: Doing well this morning. Review of Systems Review of Systems: All systems reviewed & are unremarkable except as noted in HPI and below (HPI) Exam Const: General: comfortable and no acute distress HENMT: Mouth: Yes moist mucous membranes Eyes: General: appearance normal, both eyes and all related structures Sclera: sclerae normal Neck: Neck: supple Resp: Effort & Inspection: normal respiratory effort Cardio: Rate: regular rate Rhythm: regular rhythm Skin: General skin exam: normal color Neuro: Speech: normal speech Psych: Mental Status: mental status grossly normal Affect: normal affect Objective Data Vital Signs Vital Signs: Vital Signs - 24 hr 01/29/23 11:23 01/29/23 11:36 01/29/23 12:00 Temperature Pulse Rate 73 79 81 Respiratory Rate 20 20 Blood Pressure Pulse Oximetry Oxygen Delivery 01/29/23 12:30 01/29/23 12:30 01/29/23 14:00 Temperature Pulse Rate 79 84 Respiratory Rate 18 Blood Pressure 122/77 Pulse Oximetry 96 Oxygen Delivery Room Air 01/29/23 15:10 01/29/23 16:00 01/29/23 16:00 Temperature Pulse Rate 99 81 Respiratory Rate 20 Blood Pressure 127/75 Pulse Oximetry 98 Oxygen Delivery Room Air 01/29/23 16:00 01/29/23 19:54 01/29/23 18:00 Temperature 36.6 C 36.4 C L Pulse Rate 91 80 91 Respiratory Rate 16 16 Blood Pressure 119/64 132/57 L Pulse Oximetry 99 95 Oxygen Delivery 01/30/23 00:38 01/29/23 20:00 01/29/23 22:00 Temperatu
[2023-01-31 16:45] LABS: Ionized Calcium 4.9 mg/dL (4.7-5.5)
== END 2023-01-30 11:31 | disposition home or self-care (01) ==
LOC: ANHED 23:45 → ANHCPC 01-29 09:57 → ANHIMU 01-30 09:33 → ANHCPC 02-01 15:52 → ANHIMU 02-01 15:52
PROVIDERS: Internal Medicine; Student in an Organized Health Care Education/Training Program; Admitting Provider Student in an Organized Health Care Education/Training Program; Emergency Provider Emergency Medicine; Visit Provider Internal Medicine
DX: R00.2 Palpitations (principal); R07.9 Chest pain, unspecified; E87.6 Hypokalemia; E83.51 Hypocalcemia; F41.9 Anxiety disorder, unspecified; I07.1 Rheumatic tricuspid insufficiency; J45.909 Unspecified asthma, uncomplicated; G43.909 Migraine, unspecified, not intractable, without status migrainosus; F90.9 Attention-deficit hyperactivity disorder, unspecified type; F10.90 Alcohol use, unspecified, uncomplicated; Z79.51 Long term (current) use of inhaled steroids; Z79.899 Other long term (current) drug therapy; Z82.49 Family history of ischemic heart disease and other diseases of the circulatory system
CPT/HCPCS: 36415; 71046; 80048; 80053; 82330; 83690; 83735; 84484; 85025; 85610; 85730; 93005; 93306; 94640; 96365; 96366; 96372; 99285; A9270; G0378; J0613; J1650; J3480; J7040; J7050

== ENCOUNTER 2023-02-26 17:17 | Outpatient (CLI) | payer OTHER, SELFPAY ==
[2023-02-26 17:39] LABS: Alanine Aminotransferase 23 U/L (6-35); Albumin Level 4.4 g/dL (3.5-5.1); Alkaline Phosphatase 121 U/L (38-126); Anion Gap 7 mmol/L (8-16); Aspartate Amino Transferase 34 U/L (14-36); Bilirubin,Total 0.4 mg/dL (0.2-1.3); Blood Urea Nitrogen 9 mg/dL (7-17); Calcium 9.1 mg/dL (8.4-10.2); Carbon Dioxide 25 mmol/L (22-30); Chloride 105 mmol/L (98-107); Estimated Glomerular Filt Rate > 60; Glucose 112 mg/dL (65-110); Potassium 4.1 mmol/L (3.4-5.0); Sodium 137 mmol/L (137-145)
== END 2023-02-26 17:18 | disposition home or self-care (01) ==
DX: R00.2 Palpitations (principal); E87.6 Hypokalemia
CPT/HCPCS: 36415; 80053

== ENCOUNTER 2023-03-02 09:42 | Outpatient (CLI) | payer OTHER, SELFPAY ==
--- NOTE | 2023-03-02 | EST_ITS ---
Patient Info Name: Ofelia Graff Age: 52 years : 1970 Gender: Female Ht: 67 in Wt: 215 lbs BSA: 2.18 m2 HR: 60 bpm BP: 112 / 73 mmHg Exam Date: 03/02/2023 10:03 AM Exam Location: Echo Lab Patient Status: Outpatient Admit Date: 03/02/2023 Staff Ordering Physician: Clay Durbin MD [employer]: Veena Cope RDCS Attending Provider: Clay Durbin MD Referring Physician: Ramakrishna AC; Exercise Technologist: Veena Cope RDCS Nurse: Mame Jung APN Exam Type: CA stress echo Study Info Indications R00.2 - Palpitations Treadmill exercise stress echocardiogram is performed. Summary 1. Good functional capacity, achieving 9.2 METs of workload. 2. No abnormal ST/T wave changes diagnostic of ischemia with exercise. 3. Normal augmentation of all wall segments without evidence of ischemia with stress. 4. Stress echocardiogram is normal. 5. Stress test supervised by Mame Jung NP. Stress test interpreted by Yue Beasley MD. Stress Echo Findings Left Ventricle Normal left venticular systolic function with no regional wall motion abnormalities noted at rest. No regional wall motion abnormalities noted post stress. Normal augmentation of all wall segments without evidence of ischemia with stress. Protocol: Luis Stress ECG Details Stage: REST Duration (min): 1 min : 3 sec Speed (mph): 0.0 Grade (%): 0 HR (bpm): 60 SBP (mmHg): 112 DBP (mmHg): 73 METS: --- Stage: REST Duration (min): 14 min : 26 sec Speed (mph): 0.0 Grade (%): 0 HR (bpm): 62 SBP (mmHg): 112 DBP (mmHg): 73 METS: --- Stage: STAGE 1 Duration (min): 1 min : 0 sec Speed (mph): 1.7 Grade (%): 10 HR (bpm): 94 SBP (mmHg): 112 DBP (mmHg): 73 METS: --- Stage: STAGE 1 Duration (min): 2 min : 0 sec Speed (mph): 1.7 Grade (%): 10 HR (bpm): 110 SBP (mmHg): 112 DBP (mmHg): 73 METS: --- Stage: STAGE 1 Duration (min): 3 min : 0 sec Speed (mph): 1.7 Grade (%): 10 HR (bpm): 114 SBP (mmHg): 133 DBP (mmHg): 79 METS: --- Stage: STAGE 2 Duration (min): 1 min : 0 sec Speed (mph): 2.5 Grade (%): 12 HR (bpm): 125 SBP (mmHg): 133 DBP (mmHg): 79 METS: --- Stage: STAGE 2 Duration (min): 2 min : 0 sec Speed (mph): 2.5 Grade (%): 12 HR (bpm): 135 SBP (mmHg): 145 DBP (mmHg): 77 METS: --- Stage: STAGE 2 Duration (min): 3 min : 0 sec Speed (mph): 2.5 Grade (%): 12 HR (bpm): 137 SBP (mmHg): 145 DBP (mmHg): 77 METS: --- Stage: STAGE 3 Duration (min): 1 min : 0 sec Speed (mph): 3.4 Grade (%): 14 HR (bpm): 146 SBP (mmHg): 173 DBP (mmHg): 84 METS: --- Stage: STAGE 3 Duration (min): 1 min : 19 sec Speed (mph): 0.0 Grade (%): 0 HR (bpm): 147 SBP (mmHg): 173 DBP (mmHg): 84 METS: --- Stage: RECOVERY Duration (min): 0 min : 40 sec Speed (mph): 0.0 Grade (%): 0 HR (bpm): 122 SBP (mmHg): 173 DBP (mmHg): 84 METS: --- Stage:
== END 2023-03-02 09:43 | disposition home or self-care (01) ==
LOC: ANHCARD 09:43
PROVIDERS: Visit Provider Specialist
DX: R00.2 Palpitations (principal)
CPT/HCPCS: 93351

== ENCOUNTER 2023-04-08 15:39 | Outpatient (CLI) | payer OTHER, SELFPAY ==
[2023-04-08 16:44] LABS: LDL Cholesterol Direct 94 mg/dL
[2023-04-08 17:18] LABS: Anion Gap 7 mmol/L (8-16); Blood Urea Nitrogen 11 mg/dL (7-17); Calcium 8.8 mg/dL (8.4-10.2); Carbon Dioxide 27 mmol/L (22-30); Chloride 104 mmol/L (98-107); Cholesterol 212 mg/dL (0-200); Estimated Glomerular Filt Rate > 60; Glucose 74 mg/dL (65-110); HDL Direct 83 mg/dL; Potassium 3.8 mmol/L (3.4-5.0); Sodium 138 mmol/L (137-145); Triglycerides 97 mg/dL (<150)
== END 2023-04-08 15:40 | disposition home or self-care (01) ==
LOC: ANHLAB 15:44
DX: E87.5 Hyperkalemia (principal)
CPT/HCPCS: 36415; 80048; 80061

== ENCOUNTER 2023-05-27 15:21 | Outpatient (CLI) | payer OTHER, SELFPAY ==
[2023-05-27 17:00] LABS: Anion Gap 8 mmol/L (8-16); Blood Urea Nitrogen 9 mg/dL (7-17); Calcium 9.1 mg/dL (8.4-10.2); Carbon Dioxide 24 mmol/L (22-30); Chloride 106 mmol/L (98-107); Estimated Glomerular Filt Rate > 60; Glucose 89 mg/dL (65-110); Potassium 3.9 mmol/L (3.4-5.0); Sodium 138 mmol/L (137-145)
== END 2023-05-27 15:22 | disposition home or self-care (01) ==
DX: E87.6 Hypokalemia (principal)
CPT/HCPCS: 36415; 80048

== ENCOUNTER 2023-06-22 11:13 | Outpatient (CLI) | payer OTHER, SELFPAY ==
--- NOTE | ~2023-06-22 | CT_ITS ---
EXAMINATION: CT LE LT wo con DATE: 06/22/2023 12:24 INDICATION: Left knee unilateral primary osteoarthritis. TECHNIQUE: Computed tomography (CT) of the left lower limb was performed without intravenous contrast . Automated exposure control and iterative reconstruction technique were employed. The dose-length pr oduct was 1637.98 mGy-cm. COMPARISON: Left knee radiographs 07/14/2022 FINDINGS: Left hip demonstrates normal bone alignment. No fracture. There is mild left hip osteoarthr itis. Left knee demonstrates normal bone alignment. There is severe osteoarthritis of patellofemoral compartment, moderate osteoarthritis of medial compartment, and mild osteoarthritis of lateral compar tment. There is a small knee joint effusion. IMPRESSION: 1. Severe left knee osteoarthritis. 2. Small left knee joint effusion. 3. Mild left hip osteoarthritis. Reviewed, dictated and finalized at location A.
== END 2023-06-22 11:14 | disposition home or self-care (01) ==
PROVIDERS: Visit Provider Orthopaedic Surgery
DX: M17.12 Unilateral primary osteoarthritis, left knee (principal); M25.462 Effusion, left knee; M16.12 Unilateral primary osteoarthritis, left hip
CPT/HCPCS: 73700

== ENCOUNTER 2023-06-30 13:20 | Outpatient (CLI) | payer OTHER, SELFPAY ==
[2023-06-30 13:53] LABS: Basophils Absolute Auto 0.1 K/mm3 (0.0-0.1); Basophils Percent Auto 0.9 % (0.2-1.2); Eosinophils Absolute Auto 0.2 K/mm3 (0-0.3); Eosinophils Percent Auto 2.2 % (0-4.4); Hematocrit 38.4 % (37.0-47.0); Hemoglobin 12.5 g/dL (12.0-15.0); Immature Granulocyte Absolute 0.02 K/mm3 (0.00-0.031); Immature Granulocyte Percent A 0.3 % (0-0.5); Lymphocytes Percent Auto 28.4 % (18.3-44.2); Mean Corpuscular HGB Conc 32.6 g/dl (32-36); Mean Corpuscular Hemoglobin 29.3 pg (26-34); Mean Corpuscular Volume 90.1 fl (80-100); Mean Platelet Volume 8.9 fl (7.4-10.4); Monocytes Absolute Auto 0.6 K/mm3 (0.1-0.6); Neutrophils Absolute Auto 4.5 K/mm3 (1.3-6.7); Neutrophils Percent Auto 60.2 % (45.5-73.1); Platelet Count Result 300 k/mm3 (150-375); Red Blood Count 4.26 M/mm3 (4.2-5.4); Red Cell Distribution Width 13.2 % (11.5-14.5); White Blood Count 7.4 K/mm3 (4.5-10.0)
[2023-06-30 18:10] LABS: Iron 87 ug/dL (37-170)
[2023-06-30 18:20] LABS: Percent Iron Saturation 24 % (20-50)
[2023-06-30 20:09] LABS: Alanine Aminotransferase 21 U/L (6-35); Albumin Level 4.6 g/dL (3.5-5.1); Alkaline Phosphatase 122 U/L (38-126); Anion Gap 8 mmol/L (4-12); Aspartate Amino Transferase 30 U/L (14-36); Bilirubin,Total 0.4 mg/dL (0.2-1.3); Blood Urea Nitrogen 8 mg/dL (7-17); Calcium 9.8 mg/dL (8.4-10.2); Carbon Dioxide 24 mmol/L (22-30); Chloride 106 mmol/L (98-107); Cholesterol 179 mg/dL (0-200); Estimated Glomerular Filt Rate > 60; Glucose 86 mg/dL (65-110); HDL Direct 61 mg/dL; Sodium 138 mmol/L (137-145); Triglycerides 88 mg/dL (<150)
[2023-06-30 20:20] LABS: LDL Cholesterol Direct 90 mg/dL
[2023-07-08 04:30] LABS: TSH QUEST 1.46 mIU/L
== END 2023-06-30 13:21 | disposition home or self-care (01) ==
DX: Z00.00 Encounter for general adult medical examination without abnormal findings (principal); Z98.84 Bariatric surgery status
CPT/HCPCS: 36415; 80053; 80061; 82607; 83540; 83550; 84443; 84481; 85025; 86376

== ENCOUNTER 2023-07-07 15:23 | Outpatient (CLI) | payer OTHER, SELFPAY ==
[2023-07-07 17:27] LABS: Appearance Urine Clear (Clear); Bacteria Urine 4+ /hpf; Bilirubin Urine Negative (Negative); Blood Urine Negative (Negative); Color Urine Yellow (Yellow); Glucose Urine UA Negative (Negative); Ketones Urine Negative (Negative); Leukocyte Esterase Ur 1+ LEU/UL (Negative); Nitrate Urine Negative (Negative); Non Pathogenic Casts 0-2; Protein Urine Negative (Negative); Specific Grav Ur 1.015 (1.001-1.035); Squamous Epithelial Cell Urine None Seen /hpf (Few); WBC Urine 21-50 /hpf (0-3)
[2023-07-07 17:45] LABS: Add Urine Microscopic? YES
[2023-07-07 18:26] LABS: Vitamin D 25 Hydroxy 23.1 ng/mL
[2023-07-09 03:14] LABS: FSH 5.4 mIU/mL
== END 2023-07-07 15:24 | disposition home or self-care (01) ==
DX: R30.0 Dysuria (principal); Z98.84 Bariatric surgery status; Z78.0 Asymptomatic menopausal state
CPT/HCPCS: 36415; 81001; 82306; 82525; 82728; 83001; 87077; 87086; 87088; 87186

== ENCOUNTER 2023-08-20 12:19 | Outpatient (CLI) | payer OTHER, SELFPAY ==
--- NOTE | ~2023-08-20 | XR_ITS ---
Right Knee Technique: AP, lateral, and sunrise views were obtained. Clinical History: Osteoarthritis Findings: No fracture or dislocation is seen. Osseous alignment is anatomic. There is moderate to adv anced tricompartmental degenerative spurring, worst at the patellofemoral compartment.. Soft tissues are unremarkable. No joint effusion is seen. Impression: Moderate to advanced tricompartmental degenerative spurring, as detailed above. Reviewed, dictated and finalized at location M. Impression: Moderate to advanced tricompartmental degenerative spurring, as detailed above.
== END 2023-08-20 12:20 | disposition home or self-care (01) ==
PROVIDERS: PCP Family Medicine; Visit Provider Orthopaedic Surgery
DX: M17.0 Bilateral primary osteoarthritis of knee (principal); M25.761 Osteophyte, right knee
CPT/HCPCS: 73564

== ENCOUNTER 2023-08-30 12:04 | Outpatient (CLI) | payer OTHER, SELFPAY ==
[2023-08-30 14:03] LABS: Basophils Absolute Auto 0.1 K/mm3 (0.0-0.1); Basophils Percent Auto 1.1 % (0.2-1.2); Eosinophils Absolute Auto 0.1 K/mm3 (0-0.3); Eosinophils Percent Auto 1.5 % (0-4.4); Hematocrit 37.4 % (37.0-47.0); Hemoglobin 12.1 g/dL (12.0-15.0); Immature Granulocyte Absolute 0.01 K/mm3 (0.00-0.031); Immature Granulocyte Percent A 0.1 % (0-0.5); Lymphocytes Absolute Auto 1.99 K/mm3 (0.9-3.2); Lymphocytes Percent Auto 27.4 % (18.3-44.2); Mean Corpuscular HGB Conc 32.4 g/dl (32-36); Mean Corpuscular Hemoglobin 29.6 pg (26-34); Mean Corpuscular Volume 91.4 fl (80-100); Mean Platelet Volume 9.2 fl (7.4-10.4); Monocytes Absolute Auto 0.6 K/mm3 (0.1-0.6); Monocytes Percent Auto 8.5 % (2.6-8.5); Neutrophils Absolute Auto 4.5 K/mm3 (1.3-6.7); Neutrophils Percent Auto 61.4 % (45.5-73.1); Platelet Count Result 333 k/mm3 (150-375); Red Blood Count 4.09 M/mm3 (4.2-5.4); Red Cell Distribution Width 13.2 % (11.5-14.5); White Blood Count 7.3 K/mm3 (4.5-10.0)
[2023-08-30 14:09] LABS: Albumin Level 4.5 g/dL (3.5-5.1); Estimated Glomerular Filt Rate > 60; Glucose 77 mg/dL (65-110)
[2023-08-30 15:12] LABS: MRSA (PCR) NOT DETECTED (NOT DETECTE)
[2023-08-30 20:54] LABS: Hemoglobin A1C 4.8 % (<5.7)
== END 2023-08-30 12:05 | disposition home or self-care (01) ==
PROVIDERS: PCP Family Medicine; Visit Provider Orthopaedic Surgery
DX: M17.12 Unilateral primary osteoarthritis, left knee (principal); Z01.818 Encounter for other preprocedural examination
CPT/HCPCS: 36415; 82040; 82565; 82947; 83036; 85025; 87641

== ENCOUNTER 2023-09-16 15:05 | Emergency (ER) | payer OTHER, SELFPAY ==
[2023-09-16 15:32] VITALS: BP 126/80; PULSE 91; RESP 16; TEMP 36.7; O2SAT 99
--- NOTE | 2023-09-16 15:48 | ED.FEMALEGU ---
HPI - Female Genitourinary General Chief complaint: Urogenital-Female Stated complaint: Uti Symptoms/Head Ache/Sore Throat Time Seen by Provider: 09/16/23 15:40 Source: patient, RN notes reviewed and old records reviewed Mode of arrival: ambulatory Limitations: no limitations History of Present Illness HPI Narrative: 52 year old female who presents to [facility] with complaints of HAVING BURNING WITH URINATION, URINARY FREQUENCY AND URGENCY FOR THE PAST 2 DAYS WITH ODOROUS URINE FOR THE PAST 4 DAYS. patient reports that she has also had a sore throat for the past few days that doesn't seem to resolve, denies any fevers, reports that she has felt wiped out and has had headaches also. Patient is scheduled for total knee replacement in 2 weeks MD elicited complaint: UTI and other (sore throat, fatigue and headache.) Onset (ago): day(s) (2 days symptoms, odorous urine 4 days.) Location of symptoms: urethra Severity: moderate Severity scale (1-10): 5 Vaginal discharge: none Related Data Home Medications Medication Instructions Recorded Confirmed duloxetine 60 mg capsule,delayed 60 mg PO DAILY 12/18/20 09/16/23 release multivitamin 1 tablet PO DAILY 12/18/20 09/16/23 albuterol sulfate 90 mcg/actuation 2 puff inhalation Q4H PRN SOB 01/27/21 09/16/23 aerosol inhaler lorazepam 1 mg tablet 1 mg PO DAILY PRN Anxiety 12/13/21 09/16/23 cyanocobalamin (vitamin B-12) 1,000 mcg PO DAILY 04/16/22 09/16/23 1,000 mcg tablet,extended release calcium carb-vit V5-ndetokfxu-cotf 1 tablet PO BID 07/15/22 09/16/23 333 mg-200 unit-133 mg-5 mg tablet omega 1-gmb-dnm-fish oil 100 1 cap PO BID 07/15/22 09/16/23 mg-160 mg-1,000 mg capsule (Fish Oil) onabotulinumtoxinA 200 unit 200 unit intradermal [id number] 01/22/23 09/16/23 solution for injection (Botox) MIGRAINE rizatriptan 10 mg disintegrating 10 mg PO DAILY PRN Migraine 01/29/23 09/16/23 tablet Headache acetaminophen 500 mg capsule 1,000 mg PO Q6H PRN Pain 08/30/23 09/16/23 biotin 800 mcg tablet 800 mcg PO DAILY 08/30/23 09/16/23 cholecalciferol (vitamin D3) 125 125 mcg PO DAILY 08/30/23 09/16/23 mcg (5,000 unit) tablet dextroamphetamine-amphetamine 10 10 mg PO DAILY 08/30/23 09/16/23 mg tablet potassium 99 mg tablet 99 mg PO DAILY 08/30/23 09/16/23 semaglutide (weight loss) 0.5 0.5 mg subcut WEEKLY WEIGHT LOSS 08/30/23 09/16/23 mg/0.5 mL subcutaneous pen injector Allergies Allergy/AdvReac Type Severity Reaction Status Date / Time adhesive tape AdvReac Severe Rash Verified 09/16/23 15:22 NSAIDS (Non-Steroidal AdvReac Ulcers Verified 09/16/23 15:22 Anti-Inflamma Review of Systems Review of Systems: CONSTITUTIONAL: Denies fever, chills, or sweats. reports sore throat and fatigue CARDIOVASCULAR: Denies chest pain, palpitations, or edema. RESPIRATORY: Denies cough or dyspnea. GASTROINTESTINAL: Denies abdominal pain, nausea, vomiting, or diarrhea. GENITOURINARY: Reports dysuria, frequency, urgency. Denies flank pain or hematuria. SKIN: Denies rash or itching. MUSCULOSKELETAL: Denies back pain or myalgia. Denies CVA tenderness NEUROLOGIC:reports some headaches All systems reviewed & are unremarkable except as noted in HPI and below PMFSH Past Medical History Medical History Anxiety Asthma Colon cancer screening History of ADHD History of migraine Surgical History Surgical History H/O: hysterectomy 01/2021 History of abdominoplasty 06/2015 History of section 02/22/98, 02/24/02 History of gastric surgery lap 02/2013 History of knee surgery R knee lateral release with scope 12/2008, L knee lateral release with scope 11/2009 History of laparoscopic cholecystectomy 11/2002 History of surgery uterine ablation 07/2016 Family History Family History Father Famil
== END 2023-09-16 16:33 | disposition home or self-care (01) ==
PROVIDERS: Emergency Provider Registered Nurse
DX: N39.0 Urinary tract infection, site not specified (principal); J02.9 Acute pharyngitis, unspecified; Z20.822 Contact with and (suspected) exposure to COVID-19; J45.909 Unspecified asthma, uncomplicated; F41.9 Anxiety disorder, unspecified; F90.9 Attention-deficit hyperactivity disorder, unspecified type
CPT/HCPCS: 81003; 87081; 87086; 87088; 87426; 87880; 99213; G0463

== ENCOUNTER 2023-09-30 02:03 | Day surgery (SDC) | payer OTHER, SELFPAY ==
[2023-08-30 12:12] VITALS: BMI 35.2
--- NOTE | 2023-08-30 12:44 | PC.NURSE ---
Report to the Outpatient Waiting Room, entrance under the green pavilion located off [facility], at time __6:00 AM on date ___09/30/23____. Planned Procedure Time: _7:30 AM . Time changes happen often and if your time is changed the preop area will call you the afternoon before. - You and your visitor will be asked to self-screen and do not enter if you have any COVID symptoms. - A mask is optional within the hospital at this time. Patients may have clear liquids (water, carbonated beverages, clear teas, apple juice) until 3 hours prior to surgery(4:30AM) with a maximum of 20 ounces. - No food from midnight until time of surgery - Infants may have breast milk until 4 hours before surgery, infant formula 6 hours prior to surgery. - Children will be allowed to drink immediately following surgery. If applicable, please bring a bottle or sippy cup to assist with drinking. Juice, water, soda, and popsicles are readily available. For infants on formula, please bring formula the day of surgery. Pacifiers are allowed. Take the following medications with a SIP of water the morning of surgery: ___INHALER IF NEEDED,DEXTROAMPHETAMINE-AMPHETAMINE,DULOXETINE,LORAZEPAM IF NEEDED DO NOT STOP ANY OF YOUR OTHER PRESCRIPTION MEDICATIONS PRIOR TO SURGERY ?EXCEPT THE FOLLOWING Medications to discontinue per physician ___HOLD __OZEMPIC ___10 DAYS PRE OP PER ANESTHESIA LAST DOSE 09/19/23.PATIENT STATES HOLD ALL VITAMINS AND SUPPLEMENTS 7 DAYS PRE OP PER DR BHAKTA LAST DOSE 09/22/23 MAY TAKE TYLENOL IF NEEDED FOR PAIN Please no make-up, nail slovenian, hairspray, perfume, deodorant, or body powder the day of surgery. No jewelry (including any body piercings) or valuables the day of surgery, leave them at home. Please take a shower or bath the night before, or the morning of, surgery with an antibacterial soap. Wear comfortable, loose fitting clothing. Children are encouraged to wear pajamas. - Jewelry must be removed prior to entering the operating room. Rings and piercings that are not removed may be cut off. - The hospital will not accept responsibility for valuables. - Please leave all valuables, including medications, at home the day of surgery. If you are going home after surgery, a licensed wrecking car driver must drive you home. - NO public transportation without another adult if you receive anesthesia. - We recommend that an adult stay with you for 24 hours following discharge. - We also recommend that you do not drive, make important decision, drink alcoholic beverages, or take any drugs that were not prescribed by your health care provider for at least 24 hours after your discharge time. Follow any additional instructions given to you from your surgeon. If you or anyone in your household have experienced Covid symptoms in the past week, please notify your surgeon or the nurse liaison at the phone number below for possible testing. VERBAL AND WRITTEN instructions given to __PATIENT and asked if any additional questions and then verbalized understanding. Patient advised to call surgeon office or pre surgery nurse liaison [phone] if any additional questions.
[2023-08-30 13:06] VITALS: BP 127/80; PULSE 68; RESP 18; TEMP 36.8; O2SAT 99
--- NOTE | 2023-09-29 15:29 | WPDANESEPPF ---
Anes - Initial Pre Proc Eval Procedure: Operation Date: 09/30/23 07:30 Proposed Procedures p Left Custom Total Knee Arthroplasty - Malick Abdi MD Date/Time: 09/29/23 15:29 Surgeon: Malick Abdi MD Pre Op Diagnosis: primary OA left knee Patient Data Age: 53 Gender: F Height: 1.7 m Weight: 102.2 kg Last Vital Signs Temp 36.8 C 08/30/23 13:06 Pulse 68 08/30/23 13:06 Resp 18 08/30/23 13:06 BP 127/80 08/30/23 13:06 Pulse Ox 99 08/30/23 13:06 O2 Del Method Room Air 08/30/23 13:06 Allergies Allergy/AdvReac Type Severity Reaction Status Date / Time adhesive tape AdvReac Severe Rash Verified 09/30/23 06:58 NSAIDS (Non-Steroidal AdvReac Ulcers Verified 09/30/23 06:58 Anti-Inflamma Home Medications Medication Instructions Recorded Confirmed Type duloxetine 60 mg capsule,delayed 60 mg PO DAILY 12/18/20 09/30/23 History release multivitamin 1 tablet PO DAILY 12/18/20 09/30/23 History albuterol sulfate 90 mcg/actuation 2 puff inhalation Q4H PRN SOB 01/27/21 09/16/23 History aerosol inhaler lorazepam 1 mg tablet 1 mg PO DAILY PRN Anxiety 12/13/21 09/30/23 History cyanocobalamin (vitamin B-12) 1,000 mcg PO DAILY 04/16/22 09/30/23 History 1,000 mcg tablet,extended release calcium carb-vit R3-ihoccnulp-xevy 1 tablet PO BID 07/15/22 09/30/23 History 333 mg-200 unit-133 mg-5 mg tablet omega 1-rpg-wha-fish oil 100 1 cap PO BID 07/15/22 09/30/23 History mg-160 mg-1,000 mg capsule (Fish Oil) onabotulinumtoxinA 200 unit 200 unit intradermal [id number] 01/22/23 09/30/23 History solution for injection (Botox) MIGRAINE rizatriptan 10 mg disintegrating 10 mg PO DAILY PRN Migraine 01/29/23 09/30/23 History tablet Headache CPAP Pressure #1 ea 04/29/23 09/16/23 Rx acetaminophen 500 mg capsule 1,000 mg PO Q6H PRN Pain 08/30/23 09/16/23 History biotin 800 mcg tablet 800 mcg PO DAILY 08/30/23 09/30/23 History cholecalciferol (vitamin D3) 125 125 mcg PO DAILY 08/30/23 09/30/23 History mcg (5,000 unit) tablet dextroamphetamine-amphetamine 10 10 mg PO DAILY 08/30/23 09/30/23 History mg tablet potassium 99 mg tablet 99 mg PO DAILY 08/30/23 09/30/23 History semaglutide (weight loss) 0.5 0.5 mg subcut WEEKLY WEIGHT LOSS 08/30/23 09/30/23 History mg/0.5 mL subcutaneous pen injector Patient hx anesthesia problems: none Family hx anesthesia problems: none Results Review: All pre-operative results and documents have been reviewed as part of the pre-operative evaluation. [facility] Past Medical History Medical History (Updated 09/29/23 @ 15:30 by Raudel Clark DO) ADHD Anxiety Asthma Bradycardia Colon cancer screening History of ADHD History of migraine Surgical History Surgical History H/O: hysterectomy 01/2021 History of abdominoplasty 06/2015 History of section 02/22/98, 02/24/02 History of gastric surgery lap 02/2013 History of knee surgery R knee lateral release with scope 12/2008, L knee lateral release with scope 11/2009 History of laparoscopic cholecystectomy 11/2002 History of surgery uterine ablation 07/2016 Family History Family History Father Family history of congenital heart disease Family history of lung cancer Patient's father is Grandparent Family history of congenital heart disease Family history of osteoarthritis Other Family history of arthritis Family history of heart disease in male family member before age 55 Family history of kidney disease Hypertension Social History Social History Smoking status: Never smoker Second hand tobacco smoke exposure: Yes (as child) Additional smoking assessment comments: DENIES ANY FORM OF TOBACCO USE Alcohol intake: current Alcohol use details: 2 DRINKS PER MO
[2023-09-30] VITALS (14 sets, daily range): BP systolic 97–138; BP diastolic 46–78; PULSE 73–101; RESP 15–18; TEMP 36.3–36.9; O2SAT 95–100
--- NOTE | ~2023-09-30 | XR_ITS ---
EXAMINATION: [id number] DATE: 09/30/2023 10:20 INDICATION: Postoperative evaluation following left total knee arthroplasty. TECHNIQUE: Anteroposterior and lateral views of the left knee were obtained. COMPARISON: None. FINDINGS: Left total knee arthroplasty with patellar resurfacing appears well seated and in near anatomic align ment. No fractures identified. Expected postoperative subcutaneous and intra-articular gas. IMPRESSION: 1. Left total knee arthroplasty, negative for postoperative purposes. Reviewed, dictated and finalized at location A.
[2023-09-30] MEDS: LACTATED RINGERS 1,000 ML 30 ML IV CONT ×2 (06:40→10:02)
[2023-09-30] MEDS: TRANEXAMIC ACID 1,000MG/ISO100 1,000 MG/100 ML BAG 200 MG IVPB (06:40)
[2023-09-30] MEDS: ACETAMINOPHEN 500 MG TABLET 1000 MG PO (06:45)
--- NOTE | 2023-09-30 07:14 | PM.IMHP ---
H&P: HPI History of Present Illness Date/Time: 09/30/23 07:14 Chief Complaint: Left knee pain. Narrative: 52-year-old female returns with severe persistent knee pain. She has mechanical catching and pain when straightening the leg, worse when she stands from a seated position. She is quite frustrated. She lost a lot of weight with gastric bypass and exercise, and is concerned about falling off of her exercise program. She has a strong family history for knee trouble and joint replacement. History of arthroscopic lateral release bilateral. Review of Systems Review of Systems: All systems reviewed & are unremarkable except as noted in HPI and below PMFSH Past Medical History Medical History (Updated 09/29/23 @ 15:30 by Raudel Clark DO) ADHD Anxiety Asthma Bradycardia Colon cancer screening History of ADHD History of migraine Surgical History Surgical History H/O: hysterectomy 01/2021 History of abdominoplasty 06/2015 History of section 02/22/98, 02/24/02 History of gastric surgery lap 02/2013 History of knee surgery R knee lateral release with scope 12/2008, L knee lateral release with scope 11/2009 History of laparoscopic cholecystectomy 11/2002 History of surgery uterine ablation 07/2016 Family History Family History Father Family history of congenital heart disease Family history of lung cancer Patient's father is Grandparent Family history of congenital heart disease Family history of osteoarthritis Other Family history of arthritis Family history of heart disease in male family member before age 55 Family history of kidney disease Hypertension Social History Social History Smoking status: Never smoker Second hand tobacco smoke exposure: Yes (as child) Additional smoking assessment comments: DENIES ANY FORM OF TOBACCO USE Alcohol intake: current Alcohol use details: 2 DRINKS PER MONTH Substance use: current Substance use type: does not use Do You Feel Safe in your Home?: Yes Lack of Transportation: No Lack of Food: Never True Current Housing: I Have Housing Concerned About Future Housing: No Difficulty Paying Gas/Electric Bills: No Difficulty Paying for Meds: No Currently Unemployed: No Education: High School Diploma/GED Difficulty w/ Childcare or Family Care: No Living arrangements: with family Spiritual care concerns: No Meds Home Medications and Allergies Home Medications Medication Instructions Recorded Confirmed Type duloxetine 60 mg capsule,delayed 60 mg PO DAILY 12/18/20 09/30/23 History release multivitamin 1 tablet PO DAILY 12/18/20 09/30/23 History albuterol sulfate 90 mcg/actuation 2 puff inhalation Q4H PRN SOB 01/27/21 09/16/23 History aerosol inhaler lorazepam 1 mg tablet 1 mg PO DAILY PRN Anxiety 12/13/21 09/30/23 History cyanocobalamin (vitamin B-12) 1,000 mcg PO DAILY 04/16/22 09/30/23 History 1,000 mcg tablet,extended release calcium carb-vit G5-fyyfbllzh-ucax 1 tablet PO BID 07/15/22 09/30/23 History 333 mg-200 unit-133 mg-5 mg tablet omega 2-xju-zgc-fish oil 100 1 cap PO BID 07/15/22 09/30/23 History mg-160 mg-1,000 mg capsule (Fish Oil) onabotulinumtoxinA 200 unit 200 unit intradermal [id number] 01/22/23 09/30/23 History solution for injection (Botox) MIGRAINE rizatriptan 10 mg disintegrating 10 mg PO DAILY PRN Migraine 01/29/23 09/30/23 History tablet Headache CPAP Pressure #1 ea 04/29/23 09/16/23 Rx acetaminophen 500 mg capsule 1,000 mg PO Q6H PRN Pain 08/30/23 09/16/23 History biotin 800 mcg tablet 800 mcg PO DAILY 08/30/23 09/30/23 History cholecalciferol (vitamin D3) 125 125 mcg PO DAILY 08/30/23 09/30/23 History mcg (5,000 unit) tablet dextroamphetamine-amphetamine 10 10 mg PO
--- NOTE | 2023-09-30 07:17 | WPDHPUPDATE1 ---
History and Physical Update Update Date/Time: 09/30/23 07:17 History and Physical has been reviewed, including an updated exam of the patient. There are NO changes in the patient's condition. Risks, benefits, and alternatives have been discussed and questions answered. Patient agrees to proceed with procedure.
--- NOTE | 2023-09-30 07:28 | WPDANESPNB ---
Anes - Peripheral Nerve Block Date/Time: 09/30/23 07:28 I have discussed with the patient/family/POA the placement of a peripheral nerve block for post-operative pain management, including associated risks, benefits, complications, and side effects. Alternative methods of post-operative analgesia were detailed. Questions were solicited and answers provided to the satisfaction of the patient/family/POA. Time-Out: A pre-procedural Time-Out was completed immediately before starting the procedure and confirmed: Patient Identification, Site, Procedure, Patient Position and the Availability of Requisite Equipment. Clinical Indications: Acute post-operative pain management requested by the operative surgeon. Nerve Block Insertion Note Anes-nerve block: adductor canal left Patient position: supine Skin prep: chlorhexidine Needle: 22 gauge, stimulating, insulated echogenic needle. Needle length: 80 mm Technique: ultrasound Injectate: bupivacaine 0.5% with epi 5 mcg/ml (30cc - no epi) Observations: tolerated well Complications: none Procedure start time:: 719 Procedure end time:: 722
[2023-09-30] MEDS: ceFAZolin 2 GM/D5W 50 ML 2 GM/50 ML BAG IVPB ×3 (07:29→23:21)
[2023-09-30] MEDS: SODIUM CHLORIDE 0.9% IV 37.7 ML, MORPHINE SULFATE INJ (*CRX) 2 MG, ROPivacaine HCL 1% 2... INFILTRATE (08:08)
[2023-09-30] MEDS: GENTAMICIN BONE CEMENT REFOBACIN 1 EACH TOPICAL (09:04)
[2023-09-30] MEDS: fentaNYL CITRATE INJ (*CRX) 100 MCG/2 ML VIAL 25 MCG IV PUSH ×8 (10:07→10:35)
--- NOTE | 2023-09-30 10:48 | P.OP_ITS ---
Procedure Note - Detailed Date of Procedure 09/30/23 Pre-op Diagnosis Severe left knee osteoarthritis. Post-op Diagnosis Same Procedure Performed Total knee arthroplasty, left knee. Surgeon Malick Abdi MD Copy Center Specialist Zoë Gonzales PA-C Anesthesia General and Regional (Subsartorial block.) Findings Trochlear dysplasia. Custom implant with optimal fit. Significant osteophytes. Increased chondral damage noted intraoperatively then was readily evident on plain radiographs. Slight lateral capsule release. PCL release. Excellent bone quality. Description of Procedure Preoperative antibiotics were given. The limb was prepped and draped in the usual sterile fashion with a well-padded tourniquet high on the thigh. The limb was exsanguinated and the tourniquet inflated to 300 mmHg during exposure and closure. A longitudinal incision was created just medial to the patella. A sub vastus approach to the knee was performed. Arthrotomy was taken down through the joint capsule. No significant releases were initially taken. The femur was exposed and the F1 jig was applied. The coring tool was used to remove the cartilage for the F2 jig to sit flush with the bone. The jig was pinned and the distal cut carefully taken. Caliper measurements confirmed appropriate bony resections according to the preoperative templated plan. The F4 cutting jig for the femur was applied, at the standard rotation. The AP and anterior chamfer cuts were taken. The F5 jig was applied and the posterior chamfer cuts were taken. The tibia was prepared using the T1 jig, after removing cartilage for the jig contact points. Proper alignment was checked with the alignment jeremy. The tibia was cut using the T1u guide. Gap balancing was performed. Gap measurements were taken and the knee was trialed. Excellent alignment and soft tissue balancing was confirmed. The posterior cruciate ligament was recessed along the proximal tibia. The patella was cut for resurfacing. Three lug holes were drilled. Meniscal remnants were removed. The trial components were assembled. Excellent range of motion and proper soft tissue balancing were confirmed throughout the full range of motion. Patellar tracking was excellent. The knee was copiously irrigated periodically throughout the procedure. The real implants were cemented into position. Excess cement was carefully removed. The wound was closed in layers with interrupted #1 Vicryl suture, 2-0 strata fix suture, 0 strata fix suture, 2-0 strata fix suture. Steri-Strips placed on the skin with the knee flexed. Sterile bulky dressing applied. The patient was brought to [facility] recovery room in stable condition. There were no complications. Physician review assistant, Zoë Gonzales PA-C, required for surgery; including patient positioning, draping, tissue retraction, maintaining instrument position, cement removal, wound closure, and dressing placement. Implants Conformis Custom total knee arthroplasty. Cemented. Cruciate retaining. 6A insert. 35 mm round patella. Estimated Blood Loss 100 Drains No Complications No immediate complications Condition Stable Disposition PACU [facility] Billing Surgery - Charge Forward: Surgery Billing
[2023-09-30] MEDS: HYDROmorphone HCL INJ (*CRX) 1 MG/ML SYR 0.5 MG IV PUSH ×3 (11:20→20:18)
--- NOTE | 2023-09-30 11:21 | SUR.PHASEI ---
1115: SPOKE W/ DR. BERGERON. PT AWAKENING BEFORE DC TO [facility]. TEARFUL. ANXIOUS. C/O PAIN. BLOCKADES FOR PAIN MARGINAL IN EFFECT. OK TO GIVE MED DILAUDID BEFORE TRNSFR PT WILL CONT THIS MED THERAPY ON FLOOR. ELIJAH ALL OTHER MEDS WITHOUT PROBS.1120: MEDICATED AND TRNSPRT W/ O2 PNC. VSS.
--- NOTE | 2023-09-30 11:25 | ADMGEN ---
This patient, Ofelia Graff, was admitted to Medical Room 244-. Patient/family oriented to hospital policies and general routines including ID bracelet, bed and alarms, visiting hours, pain management, procedures, bathroom and other care routines, personal items, smoking policy, room service/diet, and visiting hours. Information on how to activate the Rapid Response Team has been discussed. Patient/Family are encouraged to report perceived risks to care and to ask questions if they do not understand what they are told or what they should do.
[2023-09-30] MEDS: ACETAMINOPHEN 325 MG TABLET 650 MG PO ×3 (11:47→23:22)
[2023-09-30] MEDS: SODIUM CHLORIDE 0.9% IV 1,000 ML 125 ML IV CONT (11:47)
[2023-09-30] MEDS: oxyCODONE/ACETAMINOPHEN (*CRX) 10-325 MG TABLET 1 TAB PO (12:29)
[2023-09-30] MEDS: predniSONE 5 MG TABLET PO (17:27)
[2023-09-30] MEDS: SENNA/DOCUSATE SODIUM TABLET 2 TAB PO (17:27)
[2023-09-30] MEDS: FAMOTIDINE 20 MG TABLET PO (20:20)
[2023-09-30] MEDS: ASPIRIN 81 MG ENTERIC TABLET PO (20:20)
[2023-10-01 00:47] VITALS: BP 130/65; PULSE 72; RESP 18; TEMP 36.6; O2SAT 96
[2023-10-01 02:49] VITALS: RESP 18
[2023-10-01] MEDS: oxyCODONE/ACETAMINOPHEN (*CRX) 10-325 MG TABLET 1 TAB PO ×2 (02:50→08:34)
[2023-10-01 04:40] VITALS: BP 121/69; PULSE 63; RESP 18; TEMP 36.7; O2SAT 98
[2023-10-01 05:04] LABS: Basophils Absolute Auto 0.1 K/mm3 (0.0-0.1); Basophils Percent Auto 0.5 % (0.2-1.2); Eosinophils Percent Auto 0.3 % (0-4.4); Hematocrit 30.5 % (37.0-47.0); Hemoglobin 9.8 g/dL (12.0-15.0); Immature Granulocyte Absolute 0.03 K/mm3 (0.00-0.031); Immature Granulocyte Percent A 0.3 % (0-0.5); Lymphocytes Absolute Auto 1.13 K/mm3 (0.9-3.2); Mean Corpuscular HGB Conc 32.1 g/dl (32-36); Mean Corpuscular Hemoglobin 29.5 pg (26-34); Mean Corpuscular Volume 91.9 fl (80-100); Mean Platelet Volume 8.8 fl (7.4-10.4); Monocytes Absolute Auto 0.9 K/mm3 (0.1-0.6); Monocytes Percent Auto 8.4 % (2.6-8.5); Neutrophils Absolute Auto 8.2 K/mm3 (1.3-6.7); Neutrophils Percent Auto 79.5 % (45.5-73.1); Platelet Count Result 257 k/mm3 (150-375); Red Blood Count 3.32 M/mm3 (4.2-5.4); Red Cell Distribution Width 13.2 % (11.5-14.5); White Blood Count 10.3 K/mm3 (4.5-10.0)
[2023-10-01 05:17] LABS: Anion Gap 5 mmol/L (4-12); Blood Urea Nitrogen 9 mg/dL (7-17); Calcium 8.6 mg/dL (8.4-10.2); Carbon Dioxide 29 mmol/L (22-30); Chloride 103 mmol/L (98-107); Estimated CRCL calculation 116 ml/min; Estimated Glomerular Filt Rate > 60; Glucose 113 mg/dL (65-110); Potassium 4.2 mmol/L (3.4-5.0); Sodium 137 mmol/L (137-145)
[2023-10-01] MEDS: ACETAMINOPHEN 325 MG TABLET 650 MG PO (06:11)
[2023-10-01] MEDS: ceFAZolin 2 GM/D5W 50 ML 2 GM/50 ML BAG IVPB (06:11)
--- NOTE | 2023-10-01 07:37 | P.PNAN_ITS ---
Anes - Prog Note Post-Op Date/Time: 10/01/23 07:37 Cardiovascular status: normal Respiratory status: normal Airway patency: baseline Mental status: baseline Post-Op hydration status: normal Vital Signs: Last Vital Signs Temp 36.7 C 10/01/23 04:40 Pulse 63 10/01/23 04:40 Resp 18 10/01/23 04:40 BP 121/69 10/01/23 04:40 Pulse Ox 98 10/01/23 04:40 O2 Del Method Autopap 10/01/23 02:49 O2 Flow Rate 2 09/30/23 11:40 Pain Score (VAS): 06/29 I/O: Intake & Output 09/30/23 09/30/23 10/01/23 15:59 23:59 07:59 Intake Total 650 1240 170 Balance 650 1240 170 Laboratory Tests 10/01/23 04:40 10/01/23 04:40 10/01/23 04:40 WBC 10.3 H RBC 3.32 L Hgb 9.8 L Hct 30.5 L MCV 91.9 MCH 29.5 MCHC 32.1 RDW 13.2 Plt Count 257 MPV 8.8 Immature Gran % (Auto) 0.3 Neut % (Auto) 79.5 H Lymph % (Auto) 11.0 L [place] % (Auto) 8.4 Eos % (Auto) 0.3 Baso % (Auto) 0.5 Lymph # (Auto) 1.13 [place] # (Auto) 0.9 H Eos # (Auto) 0.0 Baso # (Auto) 0.1 Abs Immat Gran (auto) 0.03 Absolute Neuts (auto) 8.2 H Absolute Nucleated RBC 0.000 Nucleated RBC % 0.0 Sodium 137 Potassium 4.2 Chloride 103 Carbon Dioxide 29 Anion Gap 5 BUN 9 Creatinine 0.60 L Estim Creat Clear Calc 116 Estimated GFR > 60 Glucose 113 H Calcium 8.6 Post-procedural complaints: none Patient Feedback: Patient satisfied with anesthetic care.
[2023-10-01 08:00] VITALS: O2SAT 98
--- NOTE | 2023-10-01 08:23 | PM.DS ---
DS: Admitting Diagnosis Discharge Date 10/01/23 Admitting Diagnosis OA knee Left DS: Discharge Diagnosis Discharge Diagnosis (1) Status post total left knee replacement: Code(s): Z96.652 - Presence of left artificial knee joint Status: Acute Assessment and Plan: Postop day 1: Left total knee arthroplasty. Patient tolerated procedure well. Patient did have bleeding from the wound post op and large hematoma. Bleeding has stopped and is no longer draining from the wound. She will call if it starts to bleed again. Pain manageable with pain medication. No numbness or tingling. We had a lengthy discussion regarding postoperative wound care, limitations, expectations, and exercises. Patient shows good understanding. She has had initial physical therapy and is tolerating it well. DVT prophylaxis: 81 mg baby aspirin b.i.d. for 14 days. Pain medication: Percocet. Prednisone. Patient has followup appointment with Dr. Abdi in 3 weeks. DS: Summary Hospital Course Reason for hospitalization: Total knee arthroplasty Hospital Course: Patient tolerated procedure well. Has had initial PT/OT. Status at Discharge Functional status at discharge: uses cane/walker Overall status at discharge: patient is progressing back to baseline Time Spent with Patient Time attestation: Total time spent providing and/or coordinating discharge services: Exam Narrative: 53-year-old overweight female. Resting comfortably in bed Alert and oriented x3. No acute distress. Wearing compression socks bilaterally. Dressing dry and intact. Large hematoma. Moderate swelling. Mild ecchymosis. No erythema. Range of motion limited due to pain. Calf nontender. Fires Quad. Neurologic status intact. No varicosities. Distal pulses palpable. DS: Data Data Completed and Pending Labs on day of discharge: Labs from last 24 hours 10/01/23 04:40 WBC 10.3 H RBC 3.32 L Hgb 9.8 L Hct 30.5 L MCV 91.9 MCH 29.5 MCHC 32.1 RDW 13.2 Plt Count 257 MPV 8.8 Immature Gran % (Auto) 0.3 Neut % (Auto) 79.5 H Lymph % (Auto) 11.0 L Coleman % (Auto) 8.4 Eos % (Auto) 0.3 Baso % (Auto) 0.5 Lymph # (Auto) 1.13 Coleman # (Auto) 0.9 H Eos # (Auto) 0.0 Baso # (Auto) 0.1 Abs Immat Gran (auto) 0.03 Absolute Neuts (auto) 8.2 H Absolute Nucleated RBC 0.000 Nucleated RBC % 0.0 Sodium 137 Potassium 4.2 Chloride 103 Carbon Dioxide 29 Anion Gap 5 BUN 9 Creatinine 0.60 L Estim Creat Clear Calc 116 Estimated GFR > 60 Glucose 113 H Calcium 8.6 Discharge Plan Discharge Patient Disposition: Home, Self-Care Discharge Instructions: See green instruction sheets Stand Alone Forms: General Discharge Instructions Follow-up/Referrals: Zoë Gonzales PA [Physician Spread Cutter] - Discharge Medications: New aspirin 81 mg tablet,delayed release (DR/EC) 81 mg PO BID 14 Days Qty: 28 0RF oxycodone-acetaminophen 5-325 mg tablet 1 - 2 tablet PO Q4-6H MDD 6 PRN (Reason: pain) Qty: 30 0RF No Action lorazepam 1 mg tablet 1 mg PO DAILY PRN (Reason: Anxiety) Botox 200 unit recon soln 200 unit intradermal [id number] Rx Instructions: for migraine per Dr. Canales duloxetine 60 mg capsule,delayed release(DR/EC) 60 mg PO DAILY multivitamin Tablet 1 tablet PO DAILY cyanocobalamin (vitamin B-12) 1,000 mcg tablet extended release 1,000 mcg PO DAILY calcium carb-D3-mag rid12-mjtr [phone] ie-afmb-hb-mg tablet 1 tablet PO BID Rx Instructions: administer with a meal Fish Oil 100-160-1,000 mg capsule 1 cap PO BID dextroamphetamine-amphetamine 10 mg tablet 10 mg PO DAILY (DME) CPAP Pressure See Rx Instructions .Route .MEDSUPPLY Qty: 1 0RF Rx Instructions: Rx: Change pressure settings to 11 cm H2O with EPR of 2 Dx: G47.33 DME: [employer] albuterol sulfate 90 mcg/actuation HFA aerosol
[2023-10-01 08:57] VITALS: BP 135/81; PULSE 79; RESP 16; TEMP 36.2; O2SAT 99
[2023-10-01] MEDS: SENNA/DOCUSATE SODIUM TABLET 2 TAB PO (09:03)
[2023-10-01] MEDS: polyethylene glycoL 3350 17 GM POWD.PACK PO (09:03)
[2023-10-01] MEDS: ASPIRIN 81 MG ENTERIC TABLET PO (09:03)
[2023-10-01] MEDS: FAMOTIDINE 20 MG TABLET PO (09:03)
== END 2023-10-01 10:50 | disposition home or self-care (01) ==
LOC: ANHSURGERY 06:16 → ANH2MED 11:25
PROVIDERS: Physician Assistant Surgical; PCP Internal Medicine; Visit Provider Orthopaedic Surgery
PROC: (CPT 27447; principal; 2023-09-30 07:30)
DX: M17.12 Unilateral primary osteoarthritis, left knee (principal); M25.762 Osteophyte, left knee; M94.262 Chondromalacia, left knee; F90.9 Attention-deficit hyperactivity disorder, unspecified type; F41.9 Anxiety disorder, unspecified; J45.909 Unspecified asthma, uncomplicated; R00.1 Bradycardia, unspecified; E66.9 Obesity, unspecified; Z68.36 Body mass index [BMI] 36.0-36.9, adult; G89.18 Other acute postprocedural pain; Z79.51 Long term (current) use of inhaled steroids; Z79.85 Long-term (current) use of injectable non-insulin antidiabetic drugs; Z99.89 Dependence on other enabling machines and devices; Z98.890 Other specified postprocedural states; Z98.84 Bariatric surgery status; Z80.1 Family history of malignant neoplasm of trachea, bronchus and lung; Z82.49 Family history of ischemic heart disease and other diseases of the circulatory system
CPT/HCPCS: 64447; 27447; 36415; 73560; 80048; 82040; 82565; 82947; 83036; 85025; 86850; 86900; 86901; 87641; 97110; 97116; 97161; 97165; 97530; 97535; A9270; C1713; C1776; J0171; J0690; J1100; J1170; J1885; J2270; J2405; J2704; J2795; J3010; J7030; J7120; J7512

== ENCOUNTER 2023-10-09 15:13 | Emergency (ER) | payer OTHER, SELFPAY ==
--- NOTE | ~2023-10-09 | XR_ITS ---
EXAMINATION: XR hip LT 2V w AP pelvis DATE: 10/09/2023 17:55 INDICATION: Left hip pain post knee replacement TECHNIQUE: Anteroposterior view of the pelvis and anteroposterior and frog-leg lateral views of the l eft hip were obtained. COMPARISON: None. FINDINGS: Bone alignment is normal. No fracture or suspected osteonecrosis. Bilateral hip and sacroiliac joint spaces appear relatively preserved. Soft tissues are unremarkable. IMPRESSION: 1. Negative pelvis and left hip radiographs. Reviewed, dictated and finalized at location A.
[2023-10-09 15:26] VITALS: BP 132/86; PULSE 99; RESP 16; TEMP 36.4; O2SAT 100
--- NOTE | 2023-10-09 17:26 | ED.EXTPRO ---
HPI - Extremity Problem General Chief complaint: Extremity Problem,Nontraumatic Stated complaint: L hip bursitis 10 days post op L knee replacement Time Seen by Provider: 10/09/23 16:37 Source: patient Mode of arrival: wheelchair Limitations: no limitations History of Present Illness HPI Narrative: This is a 53 year old female that presents to the ER for left hip pain. Patient reports she has been struggling with bursitis in this hip for the last year. She had a left knee replacement 9 days ago. Reports immediately in the PACU she started to have left lateral hip pain, consistent with her bursitis. She has continued to experience pain since. Unrelieved by Oxycodone and Valium prescribed. She is unable to take oral NSAIDs due to history of bariatric surgery. She called orthopedics doctor who recommended coming in for an injection of Toradol. Denies fever, erythema, decreased ROM. Related Data Home Medications Medication Instructions Recorded Confirmed duloxetine 60 mg capsule,delayed 60 mg PO DAILY 12/18/20 09/30/23 release multivitamin 1 tablet PO DAILY 12/18/20 09/30/23 albuterol sulfate 90 mcg/actuation 2 puff inhalation Q4H PRN SOB 01/27/21 09/16/23 aerosol inhaler lorazepam 1 mg tablet 1 mg PO DAILY PRN Anxiety 12/13/21 09/30/23 cyanocobalamin (vitamin B-12) 1,000 mcg PO DAILY 04/16/22 09/30/23 1,000 mcg tablet,extended release calcium carb-vit J6-uufzxandk-pfng 1 tablet PO BID 07/15/22 09/30/23 333 mg-200 unit-133 mg-5 mg tablet omega 0-qgp-tou-fish oil 100 1 cap PO BID 07/15/22 09/30/23 mg-160 mg-1,000 mg capsule (Fish Oil) onabotulinumtoxinA 200 unit 200 unit intradermal [id number] 01/22/23 09/30/23 solution for injection (Botox) MIGRAINE rizatriptan 10 mg disintegrating 10 mg PO DAILY PRN Migraine 01/29/23 09/30/23 tablet Headache acetaminophen 500 mg capsule 1,000 mg PO Q6H PRN Pain 08/30/23 09/16/23 biotin 800 mcg tablet 800 mcg PO DAILY 08/30/23 09/30/23 cholecalciferol (vitamin D3) 125 125 mcg PO DAILY 08/30/23 09/30/23 mcg (5,000 unit) tablet dextroamphetamine-amphetamine 10 10 mg PO DAILY 08/30/23 09/30/23 mg tablet potassium 99 mg tablet 99 mg PO DAILY 08/30/23 09/30/23 semaglutide (weight loss) 0.5 0.5 mg subcut WEEKLY WEIGHT LOSS 08/30/23 09/30/23 mg/0.5 mL subcutaneous pen injector Allergies Allergy/AdvReac Type Severity Reaction Status Date / Time adhesive tape AdvReac Severe Rash Verified 10/09/23 16:40 NSAIDS (Non-Steroidal AdvReac Ulcers Verified 10/09/23 16:40 Anti-Inflamma Review of Systems Review of Systems: CONSTITUTIONAL: Denies fever SKIN: Denies erythema MUSCULOSKELETAL: Reports joint pain, and myalgia. NEUROLOGIC: Denies numbness, or weakness. All systems reviewed & are unremarkable except as noted in HPI and below PMFSH Past Medical History Medical History (Updated 10/09/23 @ 20:18 by Barbara Pandey PA-C) ADHD Anxiety Asthma Bradycardia Colon cancer screening History of ADHD History of migraine Surgical History Surgical History (Updated 10/01/23 @ 08:22 by SAFIA Cao) H/O: hysterectomy 01/2021 History of abdominoplasty 06/2015 History of section 02/22/98, 02/24/02 History of gastric surgery lap 02/2013 History of knee surgery R knee lateral release with scope 12/2008, L knee lateral release with scope 11/2009 History of laparoscopic cholecystectomy 11/2002 History of surgery uterine ablation 07/2016 Family History Family History Father Family history of congenital heart disease Family history of lung cancer Patient's father is Grandparent Family history of congenital heart disease Family history of osteoarthritis Other Family history of arthritis Family history of heart disease in male family member before age 55 Family history of kidney disease Hypertension Social History Social History (Reviewed 09/16/23 @
[2023-10-09] MEDS: ACETAMINOPHEN 500 MG TABLET 1000 MG PO (17:33)
[2023-10-09] MEDS: oxyCODONE HCL (*CRX) 5 MG TAB IR 10 MG PO (17:33)
[2023-10-09] MEDS: ONDANSETRON INJ 4 MG/2 ML VIAL IV PUSH (17:34)
[2023-10-09] MEDS: diazePAM INJ (*CRX) 10 MG/2 ML SYRINGE 5 MG IV PUSH (17:34)
[2023-10-09] MEDS: KETOROLAC 15 MG/ML VIAL (*BKC) IV PUSH (17:34)
[2023-10-09 19:07] VITALS: BP 122/75; PULSE 73; RESP 19; O2SAT 100
--- NOTE | 2023-10-09 19:47 | PC.NURSE ---
Report received from GENEVA Fournier. Assumed care of patient at this time.
[2023-10-09] MEDS: MORPHINE SULFATE (*CRX) 4 MG/ML INJ IV PUSH (20:17)
[2023-10-09] MEDS: KETOROLAC 30 MG/ML VIAL (*BKC) IM (20:18)
[2023-10-09 21:22] VITALS: BP 117/66; PULSE 67; RESP 17; O2SAT 97
== END 2023-10-09 21:23 | disposition home or self-care (01) ==
PROVIDERS: Emergency Provider Physician Assistant; PCP Internal Medicine
DX: M25.552 Pain in left hip (principal); M70.72 Other bursitis of hip, left hip; J45.909 Unspecified asthma, uncomplicated; F90.9 Attention-deficit hyperactivity disorder, unspecified type; F41.9 Anxiety disorder, unspecified; Z98.84 Bariatric surgery status; Z96.652 Presence of left artificial knee joint; Z90.710 Acquired absence of both cervix and uterus; Z90.49 Acquired absence of other specified parts of digestive tract; Z77.22 Contact with and (suspected) exposure to environmental tobacco smoke (acute) (chronic); Z79.85 Long-term (current) use of injectable non-insulin antidiabetic drugs; Z79.899 Other long term (current) drug therapy; Z79.82 Long term (current) use of aspirin; Z79.891 Long term (current) use of opiate analgesic; Z79.52 Long term (current) use of systemic steroids
CPT/HCPCS: 73502; 96372; 96374; 96375; 99284; A9270; J1885; J2270; J2405; J3360

== ENCOUNTER 2023-10-21 14:21 | Outpatient (CLI) | payer OTHER, SELFPAY ==
--- NOTE | ~2023-10-21 | MR_ITS ---
EXAMINATION: MR hip LT wo con DATE: 10/21/2023 15:58 INDICATION: Left hip pain. TECHNIQUE: Magnetic resonance imaging (MRI) of the left hip was performed without intravenous contras t. COMPARISON: Left hip radiographs 10/09/2023 FINDINGS: Bones/cartilage: Bone alignment is normal. The femoral head/neck morphologies are normal. The hips demonstrate osteoph ytes. Small [id number]-la-[id number] images of left hip demonstrate shallow partial-thickness cartilage loss. Labrum: There is a tear of left acetabular labrum. Fluid: There is no hip joint effusion. There is moderate right trochanteric bursitis. There is severe left t rochanteric bursitis with fluid collection measuring 3.4 x 1.0 x 5.6 cm. Soft tissues: There is mild tendinopathy of the hamstring origins bilaterally. The iliopsoas tendons are normal. Th e right gluteal tendons are normal. There is mild left gluteus minimus tendinopathy. Left gluteus med ius tendon is normal. IMPRESSION: 1. Mild osteoarthritis of the hips. Tear of left acetabular labrum. 2. Moderate right trochanteric bursitis and severe left trochanteric bursitis. Reviewed, dictated and finalized at location A.
== END 2023-10-21 14:22 | disposition home or self-care (01) ==
PROVIDERS: PCP Internal Medicine; Visit Provider Orthopaedic Surgery
DX: M25.552 Pain in left hip (principal); M70.62 Trochanteric bursitis, left hip
CPT/HCPCS: 73721

== ENCOUNTER 2023-11-19 10:32 | Outpatient (CLI) | payer OTHER, SELFPAY ==
--- NOTE | ~2023-11-19 | XR_ITS ---
Left Knee Technique: AP, lateral, and sunrise views were obtained. Clinical History: Arthroplasty Findings: No fracture or dislocation is seen. Left knee arthroplasty in place. No hardware complicati on seen. Soft tissues are unremarkable. No joint effusion is seen. Impression: No acute abnormality. Left knee arthroplasty. Reviewed, dictated and finalized at location . Impression: No acute abnormality. Left knee arthroplasty.
== END 2023-11-19 10:33 | disposition home or self-care (01) ==
LOC: ANHIMG 10:34
PROVIDERS: PCP Internal Medicine; Visit Provider Orthopaedic Surgery
DX: Z47.1 Aftercare following joint replacement surgery (principal); Z96.652 Presence of left artificial knee joint
CPT/HCPCS: 73562

== ENCOUNTER 2023-11-30 08:47 | Outpatient (CLI) | payer OTHER, SELFPAY ==
--- NOTE | ~2023-11-30 | XR_ITS ---
3 VIEWS LUMBAR SPINE Ordering provider: SAFIA Cao History: . Low back pain AFTER KNEE SX X 8WKS . Comparison: February 17, 2011 FINDINGS: VERTEBRAL BODIES: No visible fracture or subluxation. Degenerative changes of the spine. DISK SPACES: Normal. SOFT TISSUES: Normal. IMPRESSION: No acute osseous abnormality lumbar spine. Reviewed, dictated and finalized at location A.
== END 2023-11-30 08:48 | disposition home or self-care (01) ==
PROVIDERS: PCP Internal Medicine; Visit Provider Physician Assistant Surgical
DX: M54.50 Low back pain, unspecified (principal)
CPT/HCPCS: 72110

== ENCOUNTER 2024-01-03 16:45 | Outpatient (RCR) | payer OTHER, SELFPAY ==
--- NOTE | 2023-10-14 13:45 | PTOPEVAL1 ---
Assessment and note entered by Clay Mendoza Evaluation Information Assessment Status Evaluation Diagnosis s/p left TKA ICD-10 Condition Codes (PT) Z47.1 Onset 09/30/23 Subjective Information Pt. reports that she underwent surgery on 09/30/23. She reports she is currently using a cane and her doctor limited her to 700 steps/day. She reports she is taking time to elevate the leg every hour. She does have difficulty with left hip bursitis and doctor requested that she take it easy to avoid flaring of the hip. She reports that she is having a large amount of pain and taking pain medication in the morning and night. She states that she is exercising, but was not able to get exercise done more than once a day initially, but has been better with exercise recently. She is currently taking Prednisone, but is almost tapered down off the prednisone. Pt. reports that she is sleeping is difficult due to pain. 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 She reports she had no limitations in regards to IADL performance prior to surgery. She reports she is currently using a cane for ambulation. She reports that her goal is to regain normal knee mobility and walk normal. Reported Pain Level Pain Score 4: Self Report Assessment PT Clinical Summary Pt. is a 53 year old female who enters the clinic 2 weeks post left TKA. She presents with impaired knee ROM into both flexion and extension, impaired gait, edema, functional decline and pain. Continued skilled PT is indicated in order to improve these areas to allow the pt. to achieve her goal of normal gait and return to all IADL's without limitation. Plan of Care Interventions Electrical Stimulation,Gait Training,Hot Pack/Cold Pack,Manual Therapy,Neuro Re-education,Patient/ Caregiver Educati,Therapeutic Activities, Therapeutic Exercise Other Interventions vasopneumatic compression PT Services Indicated Yes Treatment Frequency and 2x/week x 10 visits Duration These treatments will address the objective and functional deficits as defined above. The patient will be advanced safely and appropriately in order for the patient to progress towards his/her prior level of function. Additional exercises will be introduced and as well as a comprehensive home exercise program upon discharge, if needed, ?to ensure carryover of functional gains achieved in the clinic. This treatment plan has been reviewed and agreement upon by the patient.
--- NOTE | 2023-10-14 13:51 | OPREHPOC ---
Outpatient Therapy Plan of Care This is a Multidisciplinary Plan of Care that may contain components documented by all disciplines (PT, OT, and ST.) PT Problem 1 PT Problem #1 Knowledge Deficit PT Goal 1 Goal Pt. will be independent with a HEP addressing edema control and ROM mormon. Target Visit 2 PT Problem 2 PT Problem #2 Impaired Range of Motion PT Goal 1 Goal Pt. will achieve 0-120 degrees of left knee active ROM Target Visit 10 PT Problem 3 PT Problem #3 Impaired Gait PT Goal 1 Goal Pt. will be able to complete the 6 minute walk test without an AD for a distance of 800' demonstrating equal right and left stance time. Pt. will navigate steps with reciprocal pattern for 10 steps Target Visit 10 PT Problem 4 PT Problem #4 Edema PT Goal 1 Goal Pt. will decrease girth measurements at the knee joint line on the left to 44cm or less Target Visit 6 PT Problem 5 PT Problem #5 Impaired Functional Mobil PT Goal 1 Goal Pt. will present with less than 40% limitation with the LEFS indicating significant functional improvement. Target Visit 10
--- NOTE | 2023-11-18 13:40 | PTOPPROG ---
Assessment and note entered by Clay [facility] Evaluation Information Assessment Status Progress Diagnosis s/p left TKA ICD-10 Condition Codes (PT) Z47.1 Onset 09/30/23 Subjective Information Pt. reports that she is still discouraged by pain. She describes pain below the knee joint in the area of the upper momin. She states that pain is a burning pain and is more notable with weight bearing. She reports that pain medication does not relieve her pain. She states that she is taking 600mg of ibuprofen every morning prior to beginning exercise. She states that pain returns a few hours later and she will have to take Oxycodone 1-2x/day regularly. She states that she is pleased with her strength and mobility at the left knee joint. She reports that she has returned to driving and is getting out into the community, however does notice increased pain after 15-20 minutes of standing. She reports that she will return to the doctor tomorrow. She states that she feels that the knee is still weak and feels that she is not done with therapy. She states that she would like to continue to improve strength. Assessment PT Clinical Summary Pt. has attended a total of 10 treatment sessions. Treatment thus far has focused on therapeutic exercise addressing strength and mobility mormon, therapeutic activities to improve functional mobility, modality care to reduce edema , and manual techniques to reduce pain. While she has demonstrated excellent progress in regards to strength and ROM, she continues to have pain. Continue to note gait deficits due to pain apprehension during weight bearing activities and weakness at the left hip. She is scheduled to visit with a specialist regarding her continued left hip pain to discuss if surgical intervention is necessary. She continues use of pain medication on a daily basis due to discomfort, and mild edema continues to be noted at the left knee . At this time continued skilled PT is indicated in order to allow for decreased pain and to initiate more functional strengthening to address pt. concern with having difficulty with community activities. Plan of Care Interventions Gait Training,Hot Pack/Cold Pack,Intermittent Compression,Manual Therapy,Neuro Re-education, Therapeutic Activities,Therapeutic Exercise Other Interventions vasopneumatic compression PT Services Indicated Yes Treatment Frequency and 2x/week x 6 visits initiating desensitization Duration techniques and functional strengthening techniques for improve gait and endurance with community activities. These treatments will address the objective and functional deficits as defined above. The patient will be advanced safely and appropriately in order for the patient to progress towards his/her prior level of function. Additional exercises will be introduced and as well as a comprehensive home exercise program upon discharge, if needed, ?to ensure carryover of functional gains achieved in the clinic. This treatment plan has been reviewed and agreement upon by the patient.
--- NOTE | 2023-12-23 16:36 | OPREHPOC ---
Outpatient Therapy Plan of Care This is a Multidisciplinary Plan of Care that may contain components documented by all disciplines (PT, OT, and ST.) PT Problem 1 PT Problem #1 Knowledge Deficit PT Goal 1 Goal / Goal Update Pt. will be independent with a HEP addressing edema control and ROM religious. Target Visit 2 Progress Met PT Problem 2 PT Problem #2 Impaired Range of Motion PT Goal 1 Goal / Goal Update Pt. will achieve 0-120 degrees of left knee active ROM Target Visit 10 Progress Met PT Problem 3 PT Problem #3 Impaired Gait PT Goal 1 Goal / Goal Update Pt. will be able to complete the 6 minute walk test without an AD for a distance of 800' demonstrating equal right and left stance time. Pt. will navigate steps with reciprocal pattern for 10 steps Target Visit 10 Progress Met PT Problem 4 PT Problem #4 Edema PT Goal 1 Goal / Goal Update Pt. will decrease girth measurements at the knee joint line on the left to 44 cm or less Target Visit 24 Progress Partially Met PT Problem 5 PT Problem #5 Impaired Functional Mobil PT Goal 1 Goal / Goal Update Pt. will present with less than 40% limitation with the LEFS indicating significant functional improvement. New Goal 11/18/23: Pt. will be able to ambulate for duration of 10 minutes demonstrating no Trendelenburg sign with 2 /10 pain levels at worst. Target Visit 24 Progress Not Met
--- NOTE | 2023-12-23 16:36 | PTOPPROG ---
Assessment and note entered by Chapin Barnes, PT Evaluation Information Assessment Status Progress Diagnosis s/p left TKA ICD-10 Condition Codes (PT) Pain in left hip M25.552,Z47.1 Onset 09/30/23 Subjective Information Reports that overall she is seeing slow progress in improvement of left knee. Still gets some pain at this distal insertion of the patella. Still minor issues with knee extension altering her gait and leading to altered pattern with deviation and decreased terminal stance. She has had a lot of transference of pain in the left hip and is currently frustrated with the lack of progression with hip pain and difficulty of movement initiation. Feels off balance at hip and feels it is agitating her back. Assessment PT Clinical Summary Patient continues to show objective progress, but is lacking in pain and gait progression at this time. We continue to see knee edema and lack of terminal stance with gait. She has significant pain contribution from left hip and shows instability and weakness in the hip structure. Patient will continue to benefit from skilled therapy to address these deficits. Plan of Care Interventions Gait Training,Hot Pack/Cold Pack,Intermittent Compression,Manual Therapy,Neuro Re-education, Therapeutic Activities,Therapeutic Exercise Other Interventions vasopneumatic compression PT Services Indicated Yes Treatment Frequency and 2x/week for 8 visits Duration These treatments will address the objective and functional deficits as defined above. The patient will be advanced safely and appropriately in order for the patient to progress towards his/her prior level of function. Additional exercises will be introduced and as well as a comprehensive home exercise program upon discharge, if needed, ?to ensure carryover of functional gains achieved in the clinic. This treatment plan has been reviewed and agreement upon by the patient.
--- NOTE | 2024-01-10 10:06 | PCPTNOTE ---
This treatment is being continued on to visit number [id number]. Please see documentation on both accounts to view progress. Completed interventions, outcomes, and problems have been marked as Inactive to facilitate the copying of the Care plan routine for recurring accounts.
== END 2024-01-04 10:33 | disposition home or self-care (01) ==
LOC: ANHPT 16:45
PROVIDERS: PCP Internal Medicine; Visit Provider Orthopaedic Surgery
DX: Z47.1 Aftercare following joint replacement surgery (principal); Z96.652 Presence of left artificial knee joint
CPT/HCPCS: 97016; 97110; 97140; 97161; 97530

== ENCOUNTER 2024-01-26 06:31 | Emergency (ER) | payer OTHER, SELFPAY ==
[2024-01-26 06:37] VITALS: BP 157/80; PULSE 73; RESP 14; TEMP 36.7; O2SAT 96
[2024-01-26] MEDS: KETOROLAC 30 MG/ML VIAL (*BKC) 15 MG IM (07:22)
[2024-01-26] MEDS: oxyCODONE/ACETAMINOPHEN (*CRX) 5-325 MG TABLET 1 TABLET PO (07:22)
[2024-01-26] MEDS: diazePAM INJ (*CRX) 10 MG/2 ML SYRINGE 2.5 MG IM (07:23)
--- NOTE | 2024-01-26 07:59 | ED.UPPEXIN ---
HPI - Extremity Injury (Upper) General Chief Complaint: Extremity Injury, Upper Stated Complaint: L shoulder pain Time Seen by Provider: 01/26/24 07:00 History of Present Illness HPI narrative: patient assigned nose with calcific tendinitis by her orthopedic doctor, had steroid injections 2 days ago, and is still not having improvement in her symptoms. Having pain/spasm up and down her arm. No focal numbness or weakness. Related Data Home Medications Medication Instructions Recorded Confirmed multivitamin 1 tablet PO DAILY 12/18/20 10/27/23 albuterol sulfate 90 mcg/actuation 2 puff inhalation Q4H PRN SOB 01/27/21 10/27/23 aerosol inhaler lorazepam 1 mg tablet 1 mg PO DAILY PRN Anxiety 12/13/21 10/27/23 cyanocobalamin (vitamin B-12) 1,000 mcg PO DAILY 04/16/22 10/27/23 1,000 mcg tablet,extended release calcium 333 mg-vit D3 200 1 tablet PO BID 07/15/22 10/27/23 unit-magnesium 133 mg-zinc 5 mg tablet omega 5-fsz-tpn-fish oil 100 1 cap PO BID 07/15/22 10/27/23 mg-160 mg-1,000 mg capsule (Fish Oil) onabotulinumtoxinA 200 unit 200 unit intradermal [id number] 01/22/23 10/27/23 solution for injection (Botox) MIGRAINE rizatriptan 10 mg disintegrating 10 mg PO DAILY PRN Migraine 01/29/23 10/27/23 tablet Headache acetaminophen 500 mg capsule 1,000 mg PO Q6H PRN Pain 08/30/23 10/27/23 biotin 800 mcg tablet 800 mcg PO DAILY 08/30/23 10/27/23 cholecalciferol (vitamin D3) 125 125 mcg PO DAILY 08/30/23 10/27/23 mcg (5,000 unit) tablet dextroamphetamine-amphetamine 10 10 mg PO DAILY 08/30/23 10/27/23 mg tablet potassium 99 mg tablet 99 mg PO DAILY 08/30/23 10/27/23 semaglutide (weight loss) 0.5 0.5 mg subcut WEEKLY WEIGHT LOSS 08/30/23 10/27/23 mg/0.5 mL subcutaneous pen injector celecoxib 100 mg capsule (Celebrex) 100 mg PO BID 11/19/23 duloxetine 60 mg capsule,delayed 90 mg PO DAILY 11/19/23 release Allergies Allergy/AdvReac Type Severity Reaction Status Date / Time adhesive tape AdvReac Severe Rash Verified 01/26/24 06:33 NSAIDS (Non-Steroidal AdvReac Ulcers Verified 01/26/24 06:33 Anti-Inflamma Review of Systems Review of Systems: All systems reviewed & are unremarkable except as noted in HPI and below PMFSH Past Medical History Medical History ADHD Anxiety Asthma Bradycardia Colon cancer screening History of ADHD History of migraine Surgical History Surgical History H/O: hysterectomy 01/2021 History of abdominoplasty 06/2015 History of section 02/22/98, 02/24/02 History of gastric surgery lap 02/2013 History of knee surgery R knee lateral release with scope 12/2008, L knee lateral release with scope 11/2009 History of laparoscopic cholecystectomy 11/2002 History of surgery uterine ablation 07/2016 Family History Family History Father Family history of congenital heart disease Family history of lung cancer Patient's father is Grandparent Family history of congenital heart disease Family history of osteoarthritis Other Family history of arthritis Family history of heart disease in male family member before age 55 Family history of kidney disease Hypertension Social History Social History Smoking status: Never smoker Second hand tobacco smoke exposure: Yes (as child) Alcohol intake: current Drinks per week: 1 Alcohol use details: 2 DRINKS PER MONTH Substance use: never Substance use type: does not use Do You Feel Safe in your Home?: Yes Lack of Transportation: No Lack of Food: Never True Current Housing: I Have Housing Concerned About Future Housing: No Difficulty Paying Gas/Electric Bills: No Difficulty Paying for Meds: No Currently Unemployed: No Education: High School Diploma/GED Difficulty w/ Childcare or Family Care: No Living arrangements: with family Spiritual care concerns: No Exam Narrative: EXAMINATION OF ORGAN SYSTEMS/BODY AREAS: Constitutional: Vital signs per nursing GENERAL: appears uncomfortable and sad HEAD: Normal with no signs of head trauma. EYES: EOMI, conjunctiva normal ENT: Hearing grossly intact LUNGS: Nonlabored breathing. HEART: [Regular rate and rhythm], normal radial pulse ABD: [Soft], [nontender to palpation] EXT: Diminished range of motion left shoulder with pain SKIN: [No rashes or lesions.] NEURO: [Alert and oriented x 3. No gross focal sensory or strength deficits.] PSYCH: Sad affect Course Vital Signs Vital signs: Vital Signs Temperature 98.1 F 01/26/24 06:37 Pulse Rate 73 01/26/24 06:37 Respiratory Rate 14 01/26/24 06:37 Blood Pressure 157/80 H 01/26/24 06:37 Pulse Oximetry 96 01/26/24 06:37 Oxygen Delivery Room Air 01/26/24 06:37 Temperature 98.1 F 01/26/24 06:37 Pulse Rate 73 01/26/24 06:37 Respiratory Rate 14 01/26/24 06:37 Blood Pressure 157/80 H 01/26/24 06:37 Pulse Oximetry 96 01/26/24 06:37 Oxygen Delivery Room Air 01/26/24 06:37 MDM - Extremity Injury (Upper) MDM Narrative Medical decision making narrative: patient presenting with severe pain to her left shoulder that has not improved after steroid shot from her orthopedic surgeon 2 days ago, has diagnosis of tendinitis. Neurovascularly intact though pain with range of motion of her left shoulder. No neuro deficits. Will trial course of steroids, muscle relaxants, would like to try 1 shot of Toradol while she is here. stable for discharge with return precautions follow-up to Orthopedics. Discharge Plan Discharge Clinical Impression: Acute shoulder pain Patient Disposition: Home, Self-Care Condition: Stable Instructions: Calcific Tendinitis (ED) Additional Instructions: Please follow up with your doctor; you can always return for any further issues. Prescriptions: New prednisone 20 mg tablet 40 mg PO DAILY 5 Days Qty: 10 0RF methocarbamol 750 mg tablet 750 mg PO TID PRN (Reason: muscle spasm) Qty: 30 0RF hydrocodone-acetaminophen 5-300 mg tablet 1 tablet PO Q8H PRN (Reason: pain) Qty: 7 0RF No Action lorazepam 1 mg tablet 1 mg PO DAILY PRN (Reason: Anxiety) Botox 200 unit recon soln 200 unit intradermal [id number] Rx Instructions: for migraine per Dr. Canales multivitamin Tablet 1 tablet PO DAILY duloxetine 60 mg capsule,delayed release(DR/EC) 90 mg PO DAILY cyanocobalamin (vitamin B-12) 1,000 mcg tablet extended release 1,000 mcg PO DAILY calcium carb-D3-mag [id number] [phone] iq-eeui-xv-mg tablet 1 tablet PO BID Rx Instructions: administer with a meal Fish Oil 100-160-1,000 mg capsule 1 cap PO BID dextroamphetamine-amphetamine 10 mg tablet 10 mg PO DAILY oxycodone-acetaminophen 5-325 mg tablet 1 - 2 tablet PO Q4-6H MDD 4 PRN (Reason: pain) Qty: 20 0RF (DME) CPAP Pressure See Rx Instructions .Route .MEDSUPPLY Qty: 1 0RF Rx Instructions: Rx: Change pressure settings to 11 cm H2O with EPR of 2 Dx: G47.33 DME: [facility] celecoxib [Celebrex] 100 mg capsule 100 mg PO BID albuterol sulfate 90 mcg/actuation HFA aerosol inhaler 2 puff INHALATION Q4H PRN (Reason: SOB) rizatriptan 10 mg tablet,disintegrating 10 mg PO DAILY MDD 2 PRN (Reason: Migraine Headache) cholecalciferol (vitamin D3) 125 mcg (5,000 unit) Tablet 125 mcg PO DAILY semaglutide (weight loss) 0.5 mg/0.5 mL Pen Injector 0.5 mg SUBCUT WEEKLY Patient Comments: TAKES ON SUNDAYS Rx Instructions: administer weeks 5 through 8 of therapy potassium 99 mg Tablet 99 mg PO DAILY acetaminophen [Tylenol Extra Strength] 500 mg Capsule 1,000 mg PO Q6H PRN (Reason: Pain) biotin 800 mcg Tablet 800 mcg PO DAILY cyclobenzaprine 10 mg tablet 10 mg PO TID PRN (Reason: muscle spasm) Qty: 30 0RF Follow-up/Referrals: RICHIE,YANI Segovia M.D. [Primary Care Provider] - Stand Alone Forms: Work/School Release IP
== END 2024-01-26 08:23 | disposition home or self-care (01) ==
LOC: ANHED 07:45
PROVIDERS: Emergency Provider Emergency Medicine; PCP Internal Medicine
DX: M25.512 Pain in left shoulder (principal)
CPT/HCPCS: 96372; 99284; A9270; J1885; J3360

== ENCOUNTER 2024-01-28 08:30 | Outpatient (RCR) | payer OTHER, SELFPAY ==
--- NOTE | 2024-01-10 10:03 | PCPTNOTE ---
This treatment is being continued on visit number [id number]. Please see documentation on both accounts to view progress. Completed interventions, outcomes, and problems have been marked as Inactive to facilitate the copying of the Care plan routine for recurring accounts.
--- NOTE | 2024-01-17 14:00 | PCPTNOTE ---
Patient cancelled today's visit secondary to illness.
--- NOTE | 2024-01-28 09:39 | OPREHPOC ---
Outpatient Therapy Plan of Care This is a Multidisciplinary Plan of Care that may contain components documented by all disciplines (PT, OT, and ST.) PT Problem 1 PT Problem #1 Knowledge Deficit PT Goal 1 Goal / Goal Update Pt. will be independent with a HEP addressing edema control and ROM restorationist. Target Visit 2 Progress Met PT Problem 2 PT Problem #2 Impaired Range of Motion PT Goal 1 Goal / Goal Update Pt. will achieve 0-120 degrees of left knee active ROM Target Visit 10 Progress Met PT Problem 3 PT Problem #3 Impaired Gait PT Goal 1 Goal / Goal Update Pt. will be able to complete the 6 minute walk test without an AD for a distance of 800' demonstrating equal right and left stance time. Pt. will navigate steps with reciprocal pattern for 10 steps Target Visit 10 Progress Met PT Problem 4 PT Problem #4 Edema PT Goal 1 Goal / Goal Update Pt. will decrease girth measurements at the knee joint line on the left to 44 cm or less Target Visit 24 Progress Met PT Problem 5 PT Problem #5 Impaired Functional Mobil PT Goal 1 Goal / Goal Update Pt. will present with less than 40% limitation with the LEFS indicating significant functional improvement. New Goal 11/18/23: Pt. will be able to ambulate for duration of 10 minutes demonstrating no Trendelenburg sign with 2 /10 pain levels at worst. Target Visit 24 Progress Met
--- NOTE | 2024-01-28 09:39 | PTOPDC ---
Assessment and note entered by Chapin Barnes, PT Evaluation Information Assessment Status Evaluation Diagnosis s/p left TKA ICD-10 Condition Codes (PT) Pain in left hip M25.552,Z47.1 Onset 09/30/23 Subjective Information Reports that she is walking better and feeling better overall, but she has more recently injured her shoulder. She reports no pain in the knee today and minimal pain in the hip but it is still a day to day basis. She is getting some soreness with increased activity of the hip. Reported Pain Level Pain Score 1: Self Report Assessment PT Clinical Summary Patient has met all goals for therapy involving knee and hip at this time. We have seen remarkable progress with ROM and gait as reflected in measures. Patient has understanding HEP and need for functional [id number]= moving forward and is suitable for discharge at this time. Plan of Care PT Services Indicated D/C to HEP
== END 2024-02-11 14:12 | disposition home or self-care (01) ==
LOC: ANHGOSHPT 08:30
PROVIDERS: PCP Internal Medicine; Visit Provider Orthopaedic Surgery
DX: Z47.1 Aftercare following joint replacement surgery (principal); Z96.652 Presence of left artificial knee joint
CPT/HCPCS: 97110; 97140; 97530

== ENCOUNTER 2024-02-08 14:24 | Outpatient (CLI) | payer OTHER, SELFPAY ==
--- NOTE | ~2024-02-08 | MR_ITS ---
EXAMINATION: MR shoulder LT wo con DATE: 02/08/2024 14:59 INDICATION: Left shoulder pain. TECHNIQUE: Magnetic resonance imaging (MRI) of the left shoulder was performed without intravenous co ntrast. Sequences included axial PD-weighted FS FSE, coronal oblique PD-weighted FS FSE and T2-weight ed FS FSE, and sagittal oblique T2-weighted FS FSE and T1-weighted FSE. COMPARISON: Left shoulder radiographs 01/24/2024 FINDINGS: Coracoacromial arch: The acromion undersurface is curved in morphology (type II). There is moderate acromioclavicular join t osteoarthritis. There is mild subacromial/subdeltoid bursitis. Rotator cuff: There is mild supraspinatus and infraspinatus tendinopathy. There is calcific tendinitis of supraspin atus tendon. Teres minor tendon is normal. Subscapularis tendon is normal. No tear. There is no asymm etric fatty atrophy of the rotator cuff muscle bellies. Biceps tendon and glenoid labrum: Biceps tendon is in bicipital groove. Intra-articular biceps tendon is normal. The glenoid labrum is intact. Fluid: There is a small glenohumeral joint effusion. Bones/cartilage: There is shallow partial-thickness cartilage loss of glenoid and deep partial-thickness cartilage los s of humeral head. Osteophytes are noted. IMPRESSION: 1. Mild rotator cuff tendinopathy. Calcific tendinitis of supraspinatus. No tear. 2. Moderate glenohumeral joint chondrosis. 3. Moderate acromioclavicular joint osteoarthritis. 4. Small glenohumeral joint effusion. 5. Mild subacromial/subdeltoid bursitis. Reviewed, dictated and finalized at location A. CAL MIXER IMPRESSION: 1. Mild rotator cuff tendinopathy. Calcific tendinitis of supraspinatus. No tea r. 2. Moderate glenohumeral joint chondrosis. 3. Moderate acromioclavicular joint osteoarthritis. 4. Small glenohumeral joint effusion. 5. Mild subacromial/subdeltoid bursitis.
== END 2024-02-08 14:25 | disposition home or self-care (01) ==
LOC: GOSHIMG 14:25
PROVIDERS: PCP Internal Medicine; Visit Provider Orthopaedic Surgery
DX: M19.012 Primary osteoarthritis, left shoulder (principal); M25.412 Effusion, left shoulder
CPT/HCPCS: 73221

== ENCOUNTER 2024-03-20 10:18 | Outpatient (CLI) | payer OTHER, SELFPAY ==
--- NOTE | ~2024-03-20 | XR_ITS ---
CHEST RADIOGRAPH, PA AND LATERAL CLINICAL HISTORY: COUGH, HX OF ASTHMA AND BRONCHITIS . COMPARISON: 01/28/2023 TECHNIQUE: PA and lateral views of the chest. FINDINGS The cardiomediastinal silhouette is unremarkable. The lungs are clear. Visualized osseous structures and soft tissues are unremarkable. IMPRESSION: No focal infiltrate or effusion. Reviewed, dictated and finalized at location A. FLIPPER
== END 2024-03-20 10:19 | disposition home or self-care (01) ==
PROVIDERS: PCP Internal Medicine; Visit Provider Internal Medicine
DX: R05.9 Cough, unspecified (principal)
CPT/HCPCS: 71046

== ENCOUNTER 2024-06-21 07:53 | Outpatient (CLI) | payer BC, SELFPAY ==
--- NOTE | ~2024-06-21 | XR_ITS ---
Left Knee Technique: AP, lateral, and sunrise views were obtained. Clinical History: Arthroplasty Findings: No fracture or dislocation is seen. Osseous alignment is anatomic. Left knee arthroplasty i n place. No hardware complication. Soft tissues are unremarkable. No joint effusion is seen. Impression: Left knee arthroplasty. No acute abnormality or hardware complication. Reviewed, dictated and finalized at location . Impression: Left knee arthroplasty. No acute abnormality or hardware complication.
== END 2024-06-21 07:54 | disposition home or self-care (01) ==
PROVIDERS: PCP Internal Medicine; Visit Provider Orthopaedic Surgery
DX: Z96.652 Presence of left artificial knee joint (principal); Z09 Encounter for follow-up examination after completed treatment for conditions other than malignant neoplasm
CPT/HCPCS: 73562

== ENCOUNTER 2024-07-13 14:53 | Outpatient (CLI) | payer BC, SELFPAY ==
--- NOTE | ~2024-07-13 | US_ITS ---
EXAM: PELVIC ULTRASOUND HISTORY: PELVIC AND PERINEAL PAIN COMPARISON: None. Reference is made to the CT examination of the abdomen and pelvis dated 04/06/2022 FINDINGS: UTERUS: Surgically absent RIGHT OVARY: Despite prolonged interrogation, the right ovary is not visualized LEFT OVARY: Despite prolonged interrogation, the left ovary is not visualized. No free fluid is identified within the pelvis. Within the left adnexa, there is a well-circumscribed focus of simple fluid measuring 2.3 x 2.2 x 2.4 cm. This finding was present on CT examination dated 04/06/2022, and is largely unchanged in size. IMPRESSION: Stable examination of the pelvis, without acute pathology, as detailed above. Reviewed, dictated and finalized at location A.
--- OUTSIDE RECORDS SUMMARY | 2024-07-13 16:08 | XMS_ITS | Encounter Summary ---
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 Name Role Phone Patt Erickson MD Primary Care Provider Ruth Carroll DO Unavailable Encounter Details Date Type Department Care Team (Late st Contact Info) Description 07/07/2023 Orders Only [facility] [place] [facility] [address] [place] [id number] Scanning, Provider Social History Tobacco Use Types Packs/Day Years Used Date Smoking Tobacco: Never Smokeless Tobacco: Never Alcohol Use Standard Drinks/Week Comments Yes 1 (1 standard drink = 0.6 oz pur e alcohol) PHQ-2 Answer Date Recorded PHQ-2 Total Score 11 07/06/2023 PHQ-9 Answer Date Recorded PHQ-9 Total Score 11 07/06/2023 Comments No Sex and Gender Information Value Date Recorded Sex Assigned at Not on file Legal Sex Female 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 Gender Identity Female 03/08/2022 7:49 PM ESTATE MANAGER Sexual Orientation Not on file 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 Not on file Not on file Not on file documented as of this encounter Plan of Treatment Not on file documented as of this encounter Procedures Procedure Name Priority Date/Time Associated Diagnosis Comments SCAN - LABS 07/07/2023 documented in this encounter Results * SCAN - LABS (07/07/2023) us Provider Scanning Final Result documented in this encounter Visit Diagnoses Not on filedocumented in this encounter Care Teams Planting Machine Crewman Relationship Specialty Start Date End Date Patt Erickson MD [address] [employer] [address] [phone] PCP - General 01/06/16 Ruth Carroll DO [address] [phone] Consulting Physician Cardiology 05/18/17 documented as of this encounter
--- OUTSIDE RECORDS SUMMARY | 2024-07-13 16:08 | XMS_ITS | Referral Summary ---
Author Organization [facility] Address [address] [place] [address] Care Team Providers Care Clinical Dental Technician Name Role Phone Patt Erickson MD Primary Care Provider Ruth Carroll DO Unavailable Encounters Date Type Department Care Team Description 07/12/2024 8:56 PM CDT - 07/12/2024 9:34 PM CDT Emergency [facility] Emergency Department [facility] [place] [address] Discharge Disposition: Left without being seen 06/07/2024 Results Follow-Up [facility] [address] [facility] [address] [place] [id number] Patt Erickson MD 06/06/2024 4:41 PM CDT - 06/06/2024 11:59 PM CDT Hospital Encounter [facility] [address] [place] [address] Discharge Disposition: Discharge to home or self care 06/06/2024 3:30 PM CDT Office Visit [facility] [address] [facility], [place] [address] Patt Erickson MD Hot flashes (Primary Dx); Family history of diabetes mellitus; Mild intermittent asthma without complication; Attention deficit hyperactivity disorder (ADHD), combined type; Weight gain; Morbid obesity with BMI of 40.0-44.9, adult ([facility]) 05/09/2024 8:20 AM STRAIGHT SLICING MACHINE OPERATOR Office Visit [facility] Orthopaedic Surgery [address] [place] [address] Acosta Mcdonald MD Paresthesia and pain of left extremity (Primary Dx); Neck pain; Acute pain of left shoulder; Disorder of left rotator cuff 04/27/2024 Orders Only [facility] Orthopaedic Surgery [address] [facility] 12th [place] [address] Niko Boo MD Left shoulder pain, unspecified chronicity (Primary Dx); Pain of left scapula 04/21/2024 Orders Only [facility] [address] [facility] [address], [place] [address] Katelynn Dhillon NP from Last 3 Months Allergies Active Allergy Reactions Criticality Noted Date Comments Adhesive Rash Medium Bupropion Other (See comments) Low 10/28/2018 Depression Ibuprofen Hives Medium 06/18/2017 Medications calcium citrate 250 mg calcium tablet 0 0 02/01/20 15 Active ferrous sulfate 325 mg (65 mg of elemental iron) tablet take 1 by Oral route once 0 0 02/01/20 15 Active multivitamin tablet pt stated they are taking chewables 2x Active onabotulinumtoxin A (Botox) 200 unit recon soln Botox 200 unit injection Active albuterol HFA (PROVENTIL HFA,VENTOLIN HFA,PROAIR HFA) 90 mcg/actuation inhaler INHALE 2 PUFFS BY MOUTH EVERY 4 HOURS NEEDED FOR WHEEZING OR SHORTNESS OF BREATH 8.5 g 5 01/12/20 23 Active celecoxib (CeleBREX) 100 mg capsule Take 1 capsule (100 mg total) by mouth 2 (two) times a day 180 capsule 1 11/08/19 24 Active ascorbic acid, vitamin C, (ascorbic acid) 250 mg tablet,chewable 02/07/20 Active biotin 10,000 mcg capsule 01/07/20 23 Active calcium-magnesium -zinc 333-133-5 mg tablet Active cholecalciferol (VITAMIN D-3) 5,000 unit tablet 07/08/19 24 Active lycopene/lutein/f ruit extract (FRUIT AND VEGETABLE DAILY ORAL) 09/20/19 23 Active omega-3 fatty acids/fish oil (OMEGA 3 FISH OIL ORAL) 11/07/19 23 Active potassium gluconate 550 mg (90 mg) tablet 05/21/[address] (CYMBALTA) 60 mg capsule Take 1 capsule (60 mg total) by mouth daily 30 capsule 11 04/03/19 25 Active rizatriptan CARGO HANDLER (MAXALT-CARGO HANDLER) 10 mg disintegrating tabletIndications :Migraine Take 1 tablet (10 mg total) by mouth once as needed for migraine May repeat in 2 hours if unresolved. Do not exceed 30 mg in 24 hours. 9 tablet 11 06/07/19 25 026 Active ondansetron ODT (ZOFRAN-ODT) 4 mg disintegrating tablet Take 1 tablet (4 mg total) by mouth every 8 (eight) hours as needed for nausea or vomiting 20 tablet 06/07/19 25 Active tirzepatide, weight loss, (ZEPBOUND) 2.5 mg/0.5 mL pen injector Inject 0.5 mL (2.5 mg total) under the skin every 7 days 2 mL 06/07/19 25 Active dexmethylphenidat e XR (FOCALIN XR) 10 mg 24 hr capsuleIndication s:Attention-Defic it Hyperactivity Disorder Take 1 capsule (10 mg total) by mouth daily 30 capsule 06/07/19 25 Active LORazepam (ATIVAN) 1 mg tablet TAKE 1 TABLET BY MOUTH NIGHTLY NEEDED FOR ANXIETY 30 tablet 2 07/05/19 25 Active LORazepam (ATIVAN) 1 mg tablet Take 1 tablet (1 mg total) by mouth nightly as needed for anxiety 30 tablet 2 04/03/19 25 025 Discontinued Active Problems Problem Noted Date Diagnosed Date Left hip pain 11/08/2023 Assessment & Plan (11/08/2023 2:24 PM CDT): Left labrum tear will be seeing Orthopedics early November Resume Celebrex for inflammatory discomfort until seen by ortho Ice Recommended call orthopedic office and see if they have any cancellations due to significant discomfort She has narcotics from her knee orthopedist that she is using sparingly Adjustment disorder with depressed mood 11/08/19 Assessment & Plan (11/08/2023 2:25 PM CDT): With current health situation limited ability to return to work at this time and pain from her hip -depression/anxiety Will increase duloxetine to 90 mg Severe obesity (BMI 35.0-35.9 with comorbidity) 04/09/2023 Assessment & Plan (04/09/2023 2:41 PM STRAIGHT SLICING MACHINE OPERATOR): Weight gain of over 20 lb is past year since patient has been off mounjaro. History of gastric bypass Blood work stable hemoglobin A1c is 5.9 Hypokalemia 04/09/2023 Assessment & Plan (04/09/2023 2:39 PM STRAIGHT SLICING MACHINE OPERATOR): Outside labs received potassium level is now stable Palpitations 02/16/2023 Kidney stone 06/04/2022 Intractable episodic headache 01/29/2022 Assessment & Plan (03/09/2022 12:42 PM STRAIGHT SLICING MACHINE OPERATOR): Improved however does remain on control as she continues to have for migraines a month. - recent Botox injections, propranolol b.i.d., Maxalt as needed Discussed the goal is no headaches monthly then will consider reduction of propranolol. This may improve as her divorce comes to a close. Headaches at this point appear to be multifactorial the triggered by stress, Barometric pressure, jaw clenching, DJD cervical, She will have Botox upcoming which may be beneficial for her jaw clenching. Return in 3 months Assessment & Plan (01/29/2022 10:52 AM STRAIGHT SLICING MACHINE OPERATOR): Uncontrolled Patient mildly responded to the use of Maxalt for headaches. Headaches at this point appear to be multifactorial the triggered by stress, Barometric pressure, jaw clenching, DJD cervical, She will have Botox upcoming which may be beneficial for her jaw clenching. No further use of Fioricet with the frequency of headaches will place her on propranolol low-dose she may use Maxalt intermittently with a goal of no more than 1 headache per month. will see her back in 1 month of headaches are not significantly improved will need radiologic testing at that time reviewed with her the side effects of propranolol she will contact us and update us is needed Family history of diabetes mellitus 01/01/2021 Attention deficit hyperactiv ity disorder (ADHD), combined type 06/20/2020 Overview (01/20/2021): Strattera vomiting Adderall 2009- unsure of dose was not sure effective Assessment & Plan (03/09/2022 12:42 PM STRAIGHT SLICING MACHINE OPERATOR): Currently controlled on Adderall Assessment & Plan (01/20/2021 11:00 AM CDT): Patient was counseled on options for management of ADHD see prior records regarding diagnosis of ADHD longstanding. Her anxiety is controlled at this time she is working with a therapist- we discussed that ADHD medication may indeed help to control anxiety however it can worsen it as well Patient was on Strattera in the past with vomiting She has a gastric bypass patient thus she senses that she absorbs medications very quickly Will place on regular release medication versus long-acting Patient is going to check her medication list at home to see what is covered on her insurance plan. Side effects of medication were discussed including hypertension, tachycardia, loss of appetite Weight loss counseling, encounter for 10/28/2018 Assessment & Plan (04/09/2023 2:44 PM STRAIGHT SLICING MACHINE OPERATOR): We explored options related to her weight - she has new insurance will explore the possibility that she can go back on a G LP 1- prescription for Wegovy sent I encouraged her to check her formulary for options related to Zepbound, saxenda. Phentermine is not an option as patient is currently on Adderall Encouraged her as able to monitor dietary intake exercise although she does have a bad knee and is hoping to have a knee replacement done in the coming year. Is currently mildly depressed on duloxetine she is allergic to Wellbutrin and is not tolerated venlafaxine in the past. This most likely is also complicating her behavioral eating Assessment & Plan (03/09/2022 12:43 PM STRAIGHT SLICING MACHINE OPERATOR): Patient with ongoing use of monjauro off label for weight loss- When coupon card expires she will also likely need to come off the medication as her insurance plan does not cover weight loss medications Assessment & Plan (01/01/2021 8:30 PM CDT): Reviewed calorie restriction based on BMR as previously detailed. Reviewed recommendation/goal of >/= 150 minutes/week moderate-intensity aerobic exercise. Asked to keep detailed food diary for at least 1 week and bring to next visit and/or continue tracking on phone. Assessment & Plan (08/02/2020 2:58 PM CDT): Reviewed calorie restriction based on BMR as previously detailed. Reviewed recommendation/goal of >/= 150 minutes/week moderate-intensity aerobic exercise. Asked to keep detailed food diary for at least 1 week and bring to next visit and/or continue tracking on phone. Assessment & Plan (01/07/2020 4:56 PM CDT): Reviewed calorie restriction based on BMR as previously detailed. Reviewed recommendation/goal of >/= 150 minutes/week moderate-intensity aerobic exercise. Asked to keep detailed food diary for at least 1 week and bring to next visit and/or continue tracking on phone. Assessment & Plan (09/21/2019 3:37 PM CDT): Reviewed calorie restriction based on BMR as previously detailed. Reviewed recommendation/goal of >/= 150 minutes/week moderate-intensity aerobic exercise. Assessment & Plan (04/24/2019 8:56 AM STRAIGHT SLICING MACHINE OPERATOR): Reviewed calorie restriction based on BMR as previously detailed. Reviewed recommendation/goal of >/= 150 minutes/week moderate-intensity aerobic exercise. She plan to start tracking with [employer]itness [employer] again. Assessment & Plan (01/26/2019 8:44 AM STRAIGHT SLICING MACHINE OPERATOR): Reviewed calorie restriction based on BMR as previously detailed. Reviewed recommendation/goal of >/= 150 minutes/week moderate-intensity aerobic exercise. Encouraged her to return to tracking. Discussed BORIS as an option and she plans to try this. Discussed strategies for upcoming holidays. Have a plan in mind ahead of time. Consider having a protein drink prior to attending parties or big dinners so that you don't arrive hungry when less ideal foods such as chips and dips may be the first things available. Avoid starting with bread or other carbs -- get protein in first, then salad/vegetables, carbs last. Try using a smaller plate. Remember that while it would be great to lose weight over the holidays, just maintaining is okay. Try not to let indiscretions get you down and derail your efforts. Assessment & Plan (12/24/2018 4:57 PM CDT): Reviewed calorie restriction based on BMR as previously detailed. Reviewed recommendation/goal of >/= 150 minutes/week moderate-intensity aerobic exercise. Assessment & Plan (10/28/2018 3:14 PM CDT): Discussed that weight loss will require calorie deficit. Calculated basal metabolic rate and estimated total energy expenditure; discussed 500-1000 kcal/day deficit to lose 1-2 lb per week. Asked to keep detailed food diary for at least 1 week and bring to next visit. Discussed relatively small, although significant, role of exercise in weight loss; greater importance in weight maintenance. Metabolic and nutritional disorder 10/28/2018 Assessment & Plan (01/01/2021 8:31 PM CDT): Labs. Continue low-carb (<150 g/day), low-glycemic diet. Resume GLP-1 RA pending labs. Assessment & Plan (11/03/2020 4:59 PM CDT): Continue low-carb (<150 g/day), low-glycemic diet. Reviewed interim labs. Assessment & Plan (01/07/2020 4:57 PM CDT): Continue low-carb (<150 g/day), low-glycemic diet. Assessment & Plan (09/21/2019 3:38 PM CDT): Continue low-carb (<150 g/day), low-glycemic diet. Assessment & Plan (04/24/2019 8:59 AM STRAIGHT SLICING MACHINE OPERATOR): Labs. Continue low-carb (<150 g/day), low-glycemic diet. Assessment & Plan (01/26/2019 8:45 AM STRAIGHT SLICING MACHINE OPERATOR): Continue low-carb (<150 g/day), low-glycemic diet. Reviewed importance of adequate protein intake of 1-1.2 g/kg IBW/day. Try having a protein drink in the afternoon so she is not starving when she gets home. Assessment & Plan (12/24/2018 4:57 PM CDT): Continue low-carb (<150 g/day), low-glycemic diet. Reviewed labs with her. Reviewed importance of adequate protein intake of 1-1.2 g/kg IBW/day. Assessment & Plan (10/28/2018 3:17 PM CDT): Reviewed labs with her. Discussed suspicion for insulin resistance in setting of obesity, high-birthweight baby and FHx DM. Discussed insulin resistance including effect on weight and risk for progression to diabetes. Recommended low-carb, low-glycemic diet; choose whole grains and avoid more highly processed carbohydrates. Discussed potential benefits of this w/r/t gut microbiome. Referred to ADA and [employer] websites for additional information on topics including glycemic index/carbohydrate choices, protein sources. Vitamin D deficiency 05/18/2017 Assessment & Plan (05/29/2019 9:31 AM CDT): Recheck today Intestinal malabsorption 04/27/2017 Assessment & Plan (12/24/2018 4:59 PM CDT): Ferritin, folic acid, B12, vit D, copper all in good range on current supplements. S/P bariatric surgery 04/22/2017 Anxiety 04/22/2017 Assessment & Plan (03/09/2022 12:43 PM STRAIGHT SLICING MACHINE OPERATOR): Chronic stabilized Will continue duloxetine at 90 mg Return in 3 months at which time she would like to come off the medication Assessment & Plan (01/29/2022 10:51 AM STRAIGHT SLICING MACHINE OPERATOR): Chronic worse due to ongoing situational stress increase duloxetine to 90 mg I have asked her not to increase the medication for 2 weeks with starting the propranolol. Will see her back in 1 month Assessment & Plan (05/29/2019 9:32 AM CDT): Stable patient remains on Cymbalta at this time however she is using lorazepam and encouraged her to consider increasing the Cymbalta with last use of her lorazepam Assessment & Plan (01/30/2019 9:06 AM STRAIGHT SLICING MACHINE OPERATOR): Markedly improved Sleep apnea 11/24/2012 Overview (06/26/2016): Sleep apnea Assessment & Plan (04/09/2023 2:41 PM STRAIGHT SLICING MACHINE OPERATOR): Patient is aware of comorbidities associated with sleep apnea- currently wearing her CPAP. Assessment & Plan (10/28/2018 3:18 PM CDT): Discussed comorbidities associated with sleep apnea, including effects on weight, and stressed importance of adequate treatment if present. Agree with repeat sleep study. Resolved Problems Problem Noted Date Diagnosed Date Resolved Date Class 3 severe obesity due t o excess calories in adult 10/28/2018 06/04/2021 Overview (09/18/2020): E66.01S/P RYGB Assessment & Plan (01/01/2021 8:32 PM CDT): Obesity is worsening. Diet interventions: as noted. Regular aerobic exercise program discussed. Pharmacotherapy as ordered. Assessment & Plan (11/03/2020 5:00 PM CDT): Obesity is worsening. Diet interventions: as noted. Regular aerobic exercise program discussed. Pharmacotherapy as ordered. Assessment & Plan (01/07/2020 5:00 PM CDT): Obesity is unchanged. Diet interventions: as noted. Regular aerobic exercise program discussed. Pharmacotherapy as ordered. Discussed options. She will retry zonisamide -- titrate up to 100 mg daily. Discussed risks, benefits, alternatives, potential side effects. Consider naltrexone, and/or bupropion. Assessment & Plan (09/21/2019 3:40 PM CDT): Obesity is worsening. Diet interventions: as noted. Regular aerobic exercise program discussed. Pharmacotherapy as ordered. Discussed options and will try zonisamide since topiramate was effective and also helped with HALL. Consider trial of topiramate ER. Consider naltrexone. Assessment & Plan (04/24/2019 8:59 AM STRAIGHT SLICING MACHINE OPERATOR): Obesity is improving with treatment. Diet interventions: as noted. Regular aerobic exercise program discussed. Pharmacotherapy as ordered. Discussed options and will try topiramate to help with evening hunger/cravings. Discussed possible add'l benefit w/r/t HALL, sleep, back pain. Discussed risks, benefits, alternatives, potential side effects. Patient made aware that use of this medication for weight loss is off label. (Discussed class X -- is s/p vasectomy and she is s/p ablation.) Stop gabapentin. Assessment & Plan (01/30/2019 9:06 AM STRAIGHT SLICING MACHINE OPERATOR): BMI Follow-up includes: education provided. Assessment & Plan (01/26/2019 8:45 AM STRAIGHT SLICING MACHINE OPERATOR): Obesity is improving with treatment. Diet interventions: as noted. Regular aerobic exercise program discussed. Pharmacotherapy as ordered. Discussed that if she continues to struggle in the evenings we can try adding topiramate. Assessment & Plan (12/24/2018 5:00 PM CDT): Obesity is improving with treatment. Diet interventions: as noted. Regular aerobic exercise program discussed. Pharmacotherapy as ordered. Assessment & Plan (10/28/2018 3:22 PM CDT): Obesity is worsening. General weight loss/lifestyle modification strategies discussed (elicit support from others; identify saboteurs; non-food rewards, etc). Behavioral treatment: continue with counselor. Diet interventions: as noted. Informal exercise measures discussed, e.g. taking stairs instead of elevator. Regular aerobic exercise program discussed. Pharmacotherapy as ordered. Prior adverse reaction to bupropion; avoid stimulant in setting of dysrhythmia. Discussed options and will try Saxenda. Discussed risks, benefits, alternatives, potential side effects. No personal or family history of MTC or MEN2. Reviewed dosing/titration; reviewed proper administration using demo pen; reviewed appropriate storage. Referred to websites for additional instructions/info/video. Consider topiramate -- possible benefit w/r/t sleep/bruxism. Encounter for screening for upper gastrointestinal disorder 12/10/2017 12/20/2018 Overview (12/10/2017): Added automatically from request for surgery [id number] BMI 31.0-31.9,adult 11/11/2017 12/21/19 19 Assessment & Plan (05/23/2018 10:03 AM STRAIGHT SLICING MACHINE OPERATOR): BMI Follow-up includes: education provided. Assessment & Plan (12/01/2017 2:07 PM CDT): BMI elevated. Today's instructions and counseling include lifestyle education regarding diet and exercise as well as weight loss. Assessment & Plan (11/11/2017 1:15 PM CDT): BMI Follow-up includes: education provided. Herpes zoster without complication 11/11/2017 12/20/2018 Assessment & Plan (12/01/2017 2:04 PM CDT): Week 3- treated with antiviral and responding well. Rash nearly resolved. She was evaluated by an finance accounting internship. She was able to stop gabapentin one week ago as symptoms have significantly improved. Expect complete resolution of rash and discomfort and she will let us know if that is not the case. Assessment & Plan (11/11/2017 1:16 PM CDT): Pt counseled for grater than 50% of the 30 minute appt regarding shingles, pathophysiology, treatment. Concern for ocular involvement will contact opthalmology. History of bariatric surgery 11/05/2017 04/09/2023 Assessment & Plan (01/30/2019 9:06 AM STRAIGHT SLICING MACHINE OPERATOR): [facility] Assessment & Plan (10/28/2018 3:18 PM CDT): Reviewed labs, imaging, notes. 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 Routine medical exam 05/18/2017 019 Cough 04/22/2017 12/20/2018 Assessment & Plan (12/01/2017 2:06 PM CDT): URI. Amoxil and Augmentin often cause yeast infections. Recommend Doxycyline and flonase. Humidification, fluids and rest. She will call if symptoms are not rapidly resolving. Acute bronchitis 04/22/2017 12/20/2018 Acute maxillary sinusitis 04/22/2017 BMI 29.0-29.9,adult 04/08/2017 04/09/19 24 Cyst of buttocks 04/08/2017 12/20/2018 Assessment & Plan (04/08/2017 4:17 PM STRAIGHT SLICING MACHINE OPERATOR): Improved at this time. Will add bacroban to the region Idioventricular rhythm ([facility]/HCC) 01/06/2016 12/17/2021 Overview (06/25/2016): Idioventricular rhythm Atopic rhinitis 11/24/2012 04/09/2023 Overview (06/25/2016): ALLERGIC RHINITIS NOS Anxiety state 11/24/2012 05/23/2018 Overview (06/25/2016): ANXIETY STATE NOS Assessment & Plan (04/08/2017 4:19 PM STRAIGHT SLICING MACHINE OPERATOR): Pt was counseled for 20 of the 30 minutes appointment regarding her current state of anxiety she was very tearful in the room and currently is seeing a counselor. When her anxiety flared her bulk mail clerk did change her to vybrium and she notes adverse reaction to that medication she did try to increase her Lexapro to 20 mg however she notes that she felt very spacey at that point in time. She is taking Xanax at bedtime for sleep however she is waking up during the middle of the night that she had a 10 mg of melatonin hand she is also having night flashes. She is currently on stable we talked about options she will return to see her counselor, will take Xanax twice a day. Additionally will attempt to increase the Lexapro I have encouraged her to communicate with us until she is seen again in the next 2 weeks. Immunizations Immunization Administration Dates Next Due DTaP 5 Pertussis 09/23/2008 Hep B Vaccine 01/17/2024,09/01/2023,07/28/2023 Influenza, Quadrivalent, Spl it, Intramuscular 12/24/2022 Influenza, Quadrivalent, Spl it, Preservative Free, Intramuscular 02/09/2023 Influenza, Trivalent, High D ose, Split, Preservative Free, Intramuscular 12/20/2014 Influenza, Trivalent, Preser vative Free, Intramuscular 12/31/2023,12/25/2011 Influenza, Unspecified 01/08/2023,2021,01/13/2021,12/22,04/19/2018,01/12/2017 Pfizer SARS-CoV-2 Monovalent Vaccination (12+ Yrs) PURPLE 04/29/2020,04/09/2020 Tdap 05/23/2018 ZOSTER Recombinant 08/26/2022,04/10/2022 Social History Tobacco Use Types Packs/Day Years Used Date Smoking Tobacco: Never Smokeless Tobacco: Never Tobacco Cessation:Counseling Given: Not Answered Alcohol Use Standard Drinks/Week Comments Yes 1 (1 standard drink = 0.6 oz pur e alcohol) AUDIT-C Answer Date Recorded Q1: How often do you have a drink containing alc ohol? Monthly or less 12/14/2023 Q2: How many drinks containi ng alcohol do you have on a typical day when you are drinking? 1 or 2 12/14/2023 Q3: How often do you have si x or more drinks on one occasion? 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 Author CCM Chronic Pain Care Plan Chronic Care Management No Ruth Brower RN Note: Problem: Chronic Pain Goals: 1. Minimize further functional decline 2. Maximize quality of life 3. Control pain Strategies: - Activity/exercise program recommendation - Conservative stepwise pain medicine strategy with multi-disciplinary approach - Recommend healthy lifestyle strategies and compensatory methods as needed Reduce the likelihood of falling Lifestyle No Ruth Brower RN Note: Below are four things you can do to prevent falls: Begin an exercise program to improve your leg strength & balance Ask your doctor or pharmacist to review your medicines Get annual eye check-ups & update your eyeglasses Make your home safer by: Removing clutter & tripping hazards Putting railings on all stairs & adding grab bars in the bathroom Having good lighting, especially on stairs Contact your local community or senior center for information on exercise, fall prevention programs, or options for improving home safety. Procedures Procedure Name Priority Date/Time Associated Diagnosis Comments EGFR Routine 06/06/2024 4:01 PM CDT Attention deficit hyperactivity disorder (ADHD), combined type DIFFERENTIAL AUTO Routine 06/06/2024 4:0 1 PM CDT Mild intermittent asthma without complication Attention deficit hyperactivity disorder (ADHD), combined type FOLLICLE STIMULATING HORMONE Routine 06/06/2024 4:01 PM CDT Hot flashes ESTRADIOL Routine 06/06/2024 4:01 PM CDT Hot flashes HEMOGLOBIN A1C Routine 06/06/2024 4:01 PM CDT Family history of diabetes mellitus CBC WITH AUTO DIFFERENTIAL Routine 06/06/2024 4:01 PM CDT Mild intermittent asthma without complication Attention deficit hyperactivity disorder (ADHD), combined type COMPREHENSIVE METABOLIC PANEL Routine 06/06/2024 4:01 PM CDT Attention deficit hyperactivity disorder (ADHD), combined type THYROID FUNCTION CASCADE Routine 06/06/2024 4:01 PM CDT Hot flashes SCREENING MAMMOGRAM BILATERAL W SUSHANT Schedule Routine, Read Routine (OP Routine) 08/27/2023 9:18 AM CDT Screening mammogram, encounter for COLONOSCOPY Routine 03/04/2022 HM PAP SMEAR WITH HPV Routine 08/15/2016 from Last 3 Months or Most Recently Relevant to Health Maintenance Results * eGFR (06/06/2024 4:01 PM CDT) eGFR >90 >=60 mL/min/1. 73 m2 Comment: Interpretive Data Reference Interval Normal >/= 90 mL/min/1.73m2 Mildly decreased* 60 - 89 mL/min/1.73m2 Mildly to moderately decreased 45 - 59 mL/min/1.73m2 Moderately to severely decreased 30 - 44 mL/min/1.73m2 Severely decreased 15 - 29 mL/min/1.73m2 Kidney Failure < 15 mL/min/1.73m2 *Relative to young adult level Estimated glomerular filtration rate is determined by the 2020 CKD-EPI equation recommended by the National Kidney Foundation (A Unifying Approach to GFR Estimation: Recommendations of the NKF-ASK Task Force on Reassessing the Inclusion of Race in Diagnosing Kidney Disease, JASN 2020). The CKD-EPI equation should not be used for patients with unstable renal function and has not been validated in children and those over 70. Current interpretive data was last reviewed 2021. Blood 06/06/2024 4:01 PM CDT 06/06/2024 7:48 PM CDT us Patt Erickson MD LAB BLOOD ORDERABLES Final Result [facility] [address] [place] [address] * Differential, auto (06/06/2024 4:01 PM CDT) Neutrophil abs 5.0 1.5 - 6.5 K/cumm Imm gran abs 0.0 0.0 - 0.1 K/cumm [facility] Lymphocyte abs 2.2 0.8 - 3.3 K/cumm [facility] Monocyte abs 0.8 0.2 - 0.8 K/cumm [facility] Eosinophil abs 0.3 0.0 - 0.5 K/cumm [facility] Basophil abs 0.1 0.0 - 0.1 K/cumm [facility] Neutrophil pct 60.2 % [facility] Comment: Interpretive Data Percent cell count reference ranges are not reported, since discordance with absolute values may lead to misinterpretation of CBC data. Current Interpretive Data was last revised on 2017. Imm gran pct 0.2 % [facility] Comment: Interpretive Data Percent cell count reference ranges are not reported, since discordance with absolute values may lead to misinterpretation of CBC data. Current Interpretive Data was last revised on 2017. Lymphocyte pct 26.0 % [facility] Comment: Interpretive Data Percent cell count reference ranges are not reported, since discordance with absolute values may lead to misinterpretation of CBC data. Current Interpretive Data was last revised on 2017. Monocyte pct 9.4 % [facility] Comment: Interpretive Data Percent cell count reference ranges are not reported, since discordance with absolute values may lead to misinterpretation of CBC data. Current Interpretive Data was last revised on 2017. Eosinophil pct 3.0 % [facility] Comment: Interpretive Data Percent cell count reference ranges are not reported, since discordance with absolute values may lead to misinterpretation of CBC data. Current Interpretive Data was last revised on 2017. Basophil pct 1.2 % [facility] Comment: Interpretive Data Percent cell count reference ranges are not reported, since discordance with absolute values may lead to misinterpretation of CBC data. Current Interpretive Data was last revised on 2017. Blood 06/06/2024 4:01 PM CDT 06/06/2024 7:49 PM CDT Patt Erickson MD LAB BLOOD ORDERABLES Final Result Performing Organization Address [facility]/ZIP Co de Phone Number [place] [phone] [place] [address] * Thyroid Function [place] (06/06/2024 4:01 PM CDT) TSH 1.09 0.30 - 4.20 mcIUnit/mL Blood 06/06/2024 4:01 PM CDT 06/06/2024 7:48 PM CDT Patt Erickson MD LAB BLOOD ORDERABLES Final Result Performing Organization Address City/[facility]/ZIP Co de Phone Number [facility] [address] [place] [place] [address] * (ABNORMAL) CBC with auto differential (06/06/2024 4:01 PM CDT) [facility] WBC 8.3 3.8 - 9.9 K/cumm Hgb 12.3 11.9 - 15.5 g/dL [facility] Hct 38.4 35.6 - 45.5 % [facility] Plt 361 150 - 400 K/cumm [facility] MPV 9.2 9.1 - 12.3 fL [facility] RBC 4.33 3.90 - 5.20 M/cumm [facility] MCV 88.7 81.3 - 96.4 fL [facility] MCH 28.4 27.1 - 33.3 pg [facility] MCHC 32.0(L) 32.3 - 35.7 g/dL [facility] RDW CV 13.9 11.1 - 14.9 % [facility] RDW SD 44.7 35.7 - 48.1 fL [facility] NRBC abs 0.00 0.00 - 0.01 K/cumm [facility] Blood 06/06/2024 4:01 PM CDT 06/06/2024 7:49 PM CDT Patt Erickson MD LAB BLOOD ORDERABLES Final Result [facility] [address] [place] [address] * Estradiol (06/06/2024 4:01 PM CDT) [facility] Estradiol 19.7 pg/mL Comment: Interpretive Data Males: 11 43 pg/mL Females: Premenopausal: 31 533 pg/mL Postmenopausal: < 50 pg/mL Patients treated with Fluvestrant (Faslodex) should be tested using an alternate assay such as LC-MS due to potential for cross-reactivity. Estradiol varies widely throughout the menstrual cycle. Current interpretive data was last revised 2024. Blood 06/06/2024 4:01 PM CDT 06/06/2024 7:48 PM CDT Result [facility] Patt Erickson MD LAB BLOOD ORDERABLES Final Result Performing Organization Address City/[facility] Co de Phone Number [facility] [address] [facility] [place] [employer] [place] [address] * Hemoglobin A1c (06/06/2024 4:01 PM CDT) Hgb A1C 5.5 4.0 - 5.6 % Estimated Average Glucose 111 mg/dL [facility] Comment: The ADA recommends reporting an estimated Average Glucose (eAG) with all Hemoglobin A1c results using the equation derived from a study of 507 normal and diabetic adults. Minority populations were underrepresented and children were not included. (Diabetes Care 31:4968-1302, 2008). The eAG is not equivalent to a fasting glucose. Blood 06/06/2024 4:01 PM CDT 06/06/2024 7:49 PM CDT Result [facility] Patt Erickson MD LAB BLOOD ORDERABLES Final Result Performing Organization Address [facility] Co de Phone Number [facility] [address] [place] [place] [address] * Follicle stimulating hormone (06/06/2024 4:01 PM CDT) Pathologist [facility] FSH 49.50 mIUnits/mL Comment: Interpretive Data Males: 1.5 - 12.4 mIUnits/mL Females: Follicular Phase: 3.5 - 12.5 mIUnits/mL Ovulatory Phase: 4.7 - 21.5 mIUnits/mL Luteal Phase: 1.7 - 7.7 mIUnits/mL Post-menopausal: 25.8 - 134 mIUnits/mL Current Interpretive Data was last revised on 2016. Blood 06/06/2024 4:01 PM CDT 06/06/2024 7:48 PM CDT Result [facility] Patt Erickson MD LAB BLOOD ORDERABLES Final Result Performing Organization Address City/[facility] Co de Phone Number [facility] [address] [place] [address] * (ABNORMAL) Comprehensive metabolic panel (06/06/2024 4:01 PM CDT) Sodium 145 135 - 145 mmol/L Potassium, pl 4.0 3.3 - 4.9 mmol/L [facility] Chloride 106 97 - 110 mmol/L [facility] CO2 24 22 - 32 mmol/L [facility] Anion gap 15 2 - 15 mmol/L [facility] BUN 10 6 - 25 mg/dL [facility] Creatinine 0.62 0.60 - 1.10 mg/dL [facility] Glucose 78 70 - 199 mg/dL [facility] Comment: Interpretive Data Fasting glucose >/= 126 mg/dl is diagnostic for diabetes. Fasting is defined as no caloric intake for at least 8 hours. Fasting glucose between 100 mg/dl to 125 mg/dl is diagnostic of prediabetes. In a patient with classic symptoms of hyperglycemia or hyperglycemic crisis, a random glucose >/= 200 mg/dl is diagnostic for diabetes. In the absence of unequivocal hyperglycemia, results should be confirmed by repeat testing. The classification and Diagnosis of Diabetes Diabetes Care 2021; 46: S19-S40. Current interpretive data was last revised 2022. Calcium 9.4 8.5 - 10.3 mg/dL [facility] Bilirubin, total 0.2 0.1 - 1.2 mg/dL [facility] Protein, pl 7.7 6.5 - 8.5 g/dL [facility] Albumin 4.5 3.5 - 5.0 g/dL [facility] Alk phos 168(H) 40 - 130 Units/L [facility] ALT 27 7 - 45 Units/L [facility] AST 26 10 - 45 Units/L [facility] Blood 06/06/2024 4:01 PM CDT 06/06/2024 7:48 PM CDT us Patt Erickson MD LAB BLOOD ORDERABLES Final Result [facility] [address] [place] [address] * Screening Mammogram Bilateral W Sushant (08/27/2023 9:18 AM CDT) Anatomical Region Laterality Modality Breast Bilateral Mammography Narrative 08/31/2023 8:04 AM CDT Mammogram Technique: Bilateral Digital Breast Tomosynthesis, Bilateral C-view 2D Screening mammogram. Views obtained: bilateral craniocaudal and bilateral mediolateral oblique. Computer Aided Detection was performed. Mammogram Findings: The present examination has been compared to prior imaging studies performed at [facility] on 12/08/2019 and 04/30/2020, and at [facility] on 07/08/2021 and 08/05/2022. The breasts are almost entirely fatty. There are amorphous calcifications with grouped distribution in the anterior of the right breast at 12 o'clock. There is no suspicious abnormality in the left breast. Impression: Calcifications in the right breast require additional evaluation. Diagnostic mammogram and possible ultrasound of the right breast are recommended at this time. OVERALL FINAL ASSESSMENT: BI-RADS CATEGORY 0: Incomplete: Need additional imaging evaluation. Procedure Note Anusha Niño MD - 08/31/2023 Mammogram Technique: Bilateral Digital Breast Tomosynthesis, Bilateral C-view 2D Screening mammogram. Views obtained: bilateral craniocaudal and bilateral mediolateral oblique. Computer Aided Detection was performed. Mammogram Findings: The present examination has been compared to prior imaging studies performed at [facility] on 12/08/2019 and 04/30/2020, and at [facility] on 07/08/2021 and 08/05/2022. The breasts are almost entirely fatty. There are amorphous calcifications with grouped distribution in the anterior of the right breast at 12 o'clock. There is no suspicious abnormality in the left breast. Impression: Calcifications in the right breast require additional evaluation. Diagnostic mammogram and possible ultrasound of the right breast are recommended at this time. OVERALL FINAL ASSESSMENT: BI-RADS CATEGORY 0: Incomplete: Need additional imaging evaluation. us Self Screening Mammogram IMG MAMMO PROCEDURES Fi nal Result * Colonoscopy (03/04/2022) Anatomical Region Laterality Modality Other Patt Erickson MD ENDOSCOPY PROCEDURES Final Result * PAP SMEAR WITH HPV (08/15/2016) HM Pap smear Normal Historical Provider HEALTH MAINTENANCE Final Result from Last 3 Months or Most Recently Relevant to Health Maintenance Insurance [facility] HMO/PPO Address: [address] [address] [place] [address] [facility] FEDERAL Advance Directives For more information, please contact: [phone] * Full Code (Latest Code Status on File) Date Activated Date Inactivated Comments 12/22/2017 12:52 PM 12/22/2017 5:32 PM Care Teams Clinical Dental Technician Relationship Specialty Start Date End Date Patt Erickson MD [address] [address] PCP - General 01/06/16 Ruth Carroll DO [address] [address] Consulting Physician Cardiology 05/18/17
--- OUTSIDE RECORDS SUMMARY | 2024-07-13 16:08 | XMS_ITS | Encounter Summary ---
Author Organization [facility] Healthcare Address [address] [place] [address] Care Team Providers Care Radio Communications Superintendent Name Role Phone Patt Erickson MD Primary Care Provider Ruth Carroll DO Unavailable [phone] Encounter Details Date Type Department Care Team (Late st Contact Info) Description 07/12/2024 8:56 PM CDT - 07/12/2024 9:34 PM CDT Emergency 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 Not on file Not on file documented as of this encounter Medications at Time of Discharge albuterol HFA (PROVENTIL HFA,VENTOLIN HFA,PROAIR HFA) 90 mcg/actuation inhaler INHALE 2 PUFFS BY MOUTH EVERY 4 HOURS NEEDED FOR WHEEZING OR SHORTNESS OF BREATH 8.5 g 5 01/11/2023 ascorbic acid, vitamin C, (ascorbic acid) 250 mg tablet,chewable 02/06/2023 biotin 10,000 mcg capsule 01/06/2023 calcium citrate 250 mg calcium tablet 0 0 01/31/2015 xoicnfl-sjctpzyjw-lp nc 333-133-5 mg tablet cholecalciferol (VITAMIN D-3) 5,000 unit tablet 07/08/2023 dexmethylphenidate XR (FOCALIN XR) 10 mg 24 hr capsuleIndications:A ttention-Deficit Hyperactivity Disorder Take 1 capsule (10 mg total) by mouth daily 30 capsule 06/06/[address] (CYMBALTA) 60 mg capsule Take 1 capsule (60 mg total) by mouth daily 30 capsule 11 04/03/2024 ferrous sulfate 325 mg (65 mg of elemental iron) tablet take 1 by Oral route once 0 0 01/31/2015 LORazepam (ATIVAN) 1 mg tablet TAKE 1 TABLET BY MOUTH NIGHTLY NEEDED FOR ANXIETY 30 tablet 2 07/04/2024 lycopene/lutein/frui t extract (FRUIT AND VEGETABLE DAILY ORAL) 09/19/2022 multivitamin tablet pt stated they are taking chewables 2x omega-3 fatty acids/fish oil (OMEGA 3 FISH OIL ORAL) 11/06/2022 onabotulinumtoxin A (Botox) 200 unit recon soln Botox 200 unit injection ondansetron ODT (ZOFRAN-ODT) 4 mg disintegrating tablet Take 1 tablet (4 mg total) by mouth every 8 (eight) hours as needed for nausea or vomiting 20 tablet 06/06/2024 potassium gluconate 550 mg (90 mg) tablet 05/21/2023 rizatriptan SENIOR PRODUCTION SUPERVISOR (MAXALT-SENIOR PRODUCTION SUPERVISOR) 10 mg disintegrating tabletIndications:Natalya hopkins Take 1 tablet (10 mg total) by mouth once as needed for migraine May repeat in 2 hours if unresolved. Do not exceed 30 mg in 24 hours. 9 tablet 11 06/06/2024 tirzepatide, weight loss, (ZEPBOUND) 2.5 mg/0.5 mL pen injector Inject 0.5 mL (2.5 mg total) under the skin every 7 days 2 mL 06/06/2024 documented as of this encounter Discharge Disposition Disposition Code Departure Means Destination Left without being seen documented in this encounter Plan of Treatment Not on file documented as of this encounter Goals Goal Patient Goal Type Associated Problems Recent Progress Patient-Stated? Author CCM Chronic Pain Care Plan Chronic Care Management No Ruth Brower, RN Note: Problem: Chronic Pain Goals: 1. Minimize further functional decline 2. Maximize quality of life 3. Control pain Strategies: - Activity/exercise program recommendation - Conservative stepwise pain medicine strategy with multi-disciplinary approach - Recommend healthy lifestyle strategies and compensatory methods as needed Reduce the likelihood of falling Lifestyle No Ruth Brower, RN Note: Below are four things you [...] programs, or options for improving home safety. documented as of this encounter Visit Diagnoses Not on filedocumented in this encounter Care Teams Radio Communications Superintendent Relationship Specialty Start Date End Date Patt Erickson MD [address] [address] PCP - General 01/06/16 Ruth Carroll DO [address] [address] Consulting Physician Cardiology 05/18/17 documented as of this encounter
--- OUTSIDE RECORDS SUMMARY | 2024-07-13 16:08 | XMS_ITS | Encounter Summary ---
Author Organization [facility] Address [address] [place] [address] Phone Care Team Providers Care Animal Caretaker Name Role Phone Patt Erickson MD Primary Care Provider Ruth Carroll DO Unavailable [phone] Encounter Details Date Type Department Care Team (Latest Contact Info) Description 01/01/2021 Orders Only [facility] Scanning, Provider Social History Tobacco Use Types Packs/Day Years Used Date Smoking Tobacco: Never Smokeless Tobacco: Never Alcohol Use Standard Drinks/Week Comments Yes 1 (1 standard drink = 0.6 oz pur e alcohol) PHQ-2 Answer Date Recorded PHQ-2 Total Score 0 05/30/2020 Comments No Sex and Gender Information Value Date Recorded Sex Assigned at Not on file Legal Sex Female 4:16 AM AGRICULTURAL EQUIPMENT SALES MANAGER Gender Identity Female 03/08/2022 7:49 PM AGRICULTURAL EQUIPMENT SALES MANAGER Sexual Orientation Not on file 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 Not on file Not on file documented as of this encounter Plan of Treatment Not on file documented as of this encounter Procedures Procedure Name Priority Date/Time Associated Diagnosis Comments SCAN - LABS 01/01/2021 documented in this encounter Results * SCAN - LABS (01/01/2021) us Provider Scanning Edited Result - Final documented in this encounter Visit Diagnoses Not on filedocumented in this encounter Care Teams Animal Caretaker Relationship Specialty Start Date End Date Patt Erickson MD [address] [phone] PCP - General 01/06/16 Ruth Carroll DO [address] [facility] [address], [place] [id number] Consulting Physician Cardiology 05/18/17 documented as of this encounter
--- OUTSIDE RECORDS SUMMARY | 2024-07-13 16:08 | XMS_ITS | Encounter Summary ---
Author Organization [facility] Healthcare Address [address] [place] [address] Care Team Providers Care Director Of Media Name Role Phone Patt Erickson MD Primary Care Provider Ruth Carroll DO Unavailable Encounter Details Date Type Department Care Team (Late st Contact Info) Description 09/30/2023 Orders Only [facility] Health Information Management [address] [place] [id number] Scanning, Provider Social History Tobacco Use Types [...] on file Legal Sex Female 4:16 AM BOW MAKER PRODUCTION Gender Identity Female 03/08/2022 7:49 PM BOW MAKER PRODUCTION Sexual Orientation Not on file 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 file Not on file documented as of this encounter Plan of Treatment Not on file documented as of this encounter Procedures Procedure Name Priority Date/Time Associated Diagnosis Comments SCAN - RADIOLOGY/IMAGING 09/30/2023 documented in this encounter Results * SCAN - RADIOLOGY/IMAGING (09/30/2023) Anatomical Region Laterality Modality Other us Provider Scanning Final Result documented in this encounter Visit Diagnoses Not on filedocumented in this encounter Care Teams Director Of Media Relationship Specialty Start Date End Date Patt Erickson MD [address] [phone] PCP - General 01/06/16 Ruth Carroll DO [address] [address] Consulting Physician Cardiology 05/18/17 documented as of this encounter
--- OUTSIDE RECORDS SUMMARY | 2024-07-13 16:08 | XMS_ITS | Encounter Summary ---
Author Organization [facility] Healthcare Address [address] [place] [address] Care Team Providers Care Livestock Breeder Name Role Phone Patt Erickson MD Primary Care Provider [phone] Ruth Carroll DO Unavailable [phone] Encounter Details Date Type Department Care Team (Late st Contact Info) Description 06/30/2023 Orders Only [facility] [place] Health Information Management [address] [place] [id number] Scanning, Provider Social History Tobacco Use Types Packs/Day Years Used Date Smoking Tobacco: Never Smokeless Tobacco: Never Alcohol Use Standard Drinks/Week Comments Yes 1 (1 standard drink = 0.6 oz pur e alcohol) PHQ-2 Answer Date Recorded PHQ-2 Total Score (If total score is 3 or more points, staff should administer the PHQ-9) 0 04/09/2023 Comments No Sex and Gender Information Value Date Recorded Sex Assigned at Not on file Legal Sex Female 4:16 AM JEWELRY DEPARTMENT SUPERVISOR Gender Identity Female 03/08/2022 7:49 PM JEWELRY DEPARTMENT SUPERVISOR Sexual Orientation Not on file 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 file Not on file documented as of this encounter Plan of Treatment Not on file documented as of this encounter Procedures Procedure Name Priority Date/Time Associated Diagnosis Comments SCAN - LABS 06/30/2023 documented in this encounter Results * SCAN - LABS (06/30/2023) us Provider Scanning Edited Result - Final documented in this encounter Visit Diagnoses Not on filedocumented in this encounter Care Teams Livestock Breeder Relationship Specialty Start Date End Date Patt Erickson MD [address] [phone] PCP - General 01/06/16 Ruth Carroll DO [address] [phone] Consulting Physician Cardiology 05/18/17 documented as of this encounter
--- OUTSIDE RECORDS SUMMARY | 2024-07-13 16:08 | XMS_ITS | Clinical Summary ---
Author Organization [facility] Address [address] [place] [id number] Care Team Providers Care English Tutor Name Role Phone Unavailable Primary Care Provider Unavailabl e Social History Tobacco Use Types Packs/Day Years Used Date Smoking Tobacco: Never Assessed Comments Unknown Sex and Gender Information Value Date Recorded Sex Assigned at Not on file Legal Sex Female 7:12 PM CDT Gender Identity Not on file Sexual Orientation Not on file Last Filed Vital Signs Vital Sign Reading Time Taken Comments Blood Pressure 110/80 05/23/2014 11:14 AM STORAGE BRINE WORKER Pulse 57 05/23/2014 11:14 AM STORAGE BRINE WORKER Temperature - - Respiratory Rate - - Oxygen Saturation - - Inhaled Oxygen Concentration - - Weight 90.7 kg (200 lb) 05/23/2014 11:14 AM STORAGE BRINE WORKER Height 170.2 cm (5' 7 ) 05/23/2014 11:14 AM STORAGE BRINE WORKER Body Mass Index 31.32 05/23/2014 11:14 AM STORAGE BRINE WORKER Plan of Treatment Health Maintenance Due Date Last Done Comments Cervical Cancer Screening Pa p Smear (Age 30 to 64) Every 3 Years 1971 Colorectal Cancer Screening Colonoscopy (10 Years) 1971 Annual Physical 09/19/1974 Hepatitis C 09/19/1989 DTaP, Tdap and Td Vaccines ( 1 - Tdap) 09/19/1990 Hepatitis B Vaccines (1 of 3 - 19+ 3-dose series) 09/19/1990 Cervical Cancer Screening Pa p with HPV Testing (Age 30 to 64) Every 5 Years 09/19/2001 Cervical Cancer Screening with HPV 09/19/2001 Mammogram Screening 2011 Pneumococcal Vaccine: 50+ Ye ars (1 of 1 - PCV) 09/19/2021 Zoster Vaccines (1 of 2) 09/19/2021 COVID-19 Vaccine (2023-2 5 season) 2023 Meningococcal B Vaccine Aged Out No l onger eligible based on patient's age to complete this topic Meningococcal Vaccine Aged Out No shahid laci eligible based on patient's age to complete this topic RSV Immunizations Under 20 Months Aged Out No longer eligible based on patient's age to complete this topic
--- OUTSIDE RECORDS SUMMARY | 2024-07-13 16:08 | XMS_ITS | Encounter Summary ---
Author Organization [facility] Healthcare Address [address] [place] [address] Care Team Providers Care Blueprint Reproducer Name Role Phone Patt Erickson MD Primary Care Provider Ruth Carroll DO Unavailable Encounter Details Date Type Department Care Team (Late st Contact Info) Description 02/21/2024 Orders Only [facility] [place] Health Information Management [address] [place] [address] Scanning, Provider Social History Tobacco Use Types [...] on file Legal Sex Female 4:16 AM CABIN EQUIPMENT SUPERVISOR Gender Identity Female 03/08/2022 7:49 PM CABIN EQUIPMENT SUPERVISOR Sexual Orientation Not on file Occupation Industry Job Start Date Job End Date [employer] Not on file Not on file Not [...] on stairs Contact your local community or [facility] for information on exercise, fall prevention programs, or options for improving home safety. documented as of this encounter Procedures Procedure Name Priority Date/Time Associated Diagnosis Comments SCAN - RADIOLOGY/IMAGING 02/21/2024 documented in this encounter Results * SCAN - RADIOLOGY/IMAGING (02/21/2024) Anatomical Region Laterality Modality Other us Provider Scanning Final Result documented in this encounter Visit Diagnoses Not on filedocumented in this encounter Care Teams Blueprint Reproducer Relationship Specialty Start Date End Date Patt Erickson MD [address] [phone] PCP - General 01/06/16 Ruth Carroll DO [address] [phone] Consulting Physician Cardiology 05/18/17 documented as of this encounter
--- OUTSIDE RECORDS SUMMARY | 2024-07-13 16:08 | XMS_ITS | Clinical Summary ---
Author Organization [facility] Address [address] [address] Care Team Prov[address] Care Road Freight Brake Coupler Name Role Phone Patt Erickson MD Primary Care Provider Ruth Carroll DO Unavailable Allergies Active Allergy Reactions Criticality Noted Date [...] 02/07/20 Active biotin 10,000 mcg capsule 01/07/20 Active calcium-magnesium -zinc 333-133-5 mg tablet Active [...] 30 capsule 11 04/03/19 25 Active rizatriptan MISSILE TECHNICIAN (MAXALT-MISSILE TECHNICIAN) 10 mg disintegrating tabletIndications :Migraine Take 1 tablet (10 mg total) by mouth once as needed for migraine May repeat in 2 hours if unresolved. Do not exceed 30 mg in 24 hours. 9 tablet 06/07/19 25 026 Active ondansetron ODT (ZOFRAN-ODT) [...] 04/09/2023 Assessment & Plan (04/09/2023 2:41 PM ACCOUNTS RECEIVABLE SUPERVISOR): Weight gain of over 20 lb is past year since patient has been off mounjaro. History of gastric bypass Blood work stable hemoglobin A1c is 5.9 Hypokalemia 04/09/2023 Assessment & Plan (04/09/2023 2:39 PM ACCOUNTS RECEIVABLE SUPERVISOR): Outside labs received potassium level is now stable Palpitations 02/16/2023 Kidney stone 06/04/2022 Intractable episodic headache 01/29/2022 Assessment & Plan (03/09/2022 12:42 PM ACCOUNTS RECEIVABLE SUPERVISOR): Improved however does remain on control as [...] months Assessment & Plan (01/29/2022 10:52 AM ACCOUNTS RECEIVABLE SUPERVISOR): Uncontrolled Patient mildly responded to the use [...] effective Assessment & Plan (03/09/2022 12:42 PM ACCOUNTS RECEIVABLE SUPERVISOR): Currently controlled on Adderall Assessment & Plan [...] 10/28/2018 Assessment & Plan (04/09/2023 2:44 PM ACCOUNTS RECEIVABLE SUPERVISOR): We explored options related to her weight [...] eating Assessment & Plan (03/09/2022 12:43 PM ACCOUNTS RECEIVABLE SUPERVISOR): Patient with ongoing use of monjauro off [...] exercise. Assessment & Plan (04/24/2019 8:56 AM ACCOUNTS RECEIVABLE SUPERVISOR): Reviewed calorie restriction based on BMR as previously detailed. Reviewed recommendation/goal of >/= 150 minutes/week moderate-intensity aerobic exercise. She plan to start tracking with My [employer]itness Pal again. Assessment & Plan (01/26/2019 8:44 AM ACCOUNTS RECEIVABLE SUPERVISOR): Reviewed calorie restriction based on BMR as [...] diet. Assessment & Plan (04/24/2019 8:59 AM ACCOUNTS RECEIVABLE SUPERVISOR): Labs. Continue low-carb (<150 g/day), low-glycemic diet. Assessment & Plan (01/26/2019 8:45 AM ACCOUNTS RECEIVABLE SUPERVISOR): Continue low-carb (<150 g/day), low-glycemic diet. Reviewed [...] w/r/t gut microbiome. Referred to ADA and [employer] websites for additional information on topics including glycemic index/carbohydrate choices, protein sources. Vitamin D deficiency 05/18/2017 Assessment & Plan (05/29/2019 9:31 AM CDT): Recheck today Intestinal malabsorption 04/27/2017 Assessment & Plan (12/24/2018 4:59 PM CDT): Ferritin, folic acid, B12, vit D, copper all in good range on current supplements. S/P bariatric surgery 04/22/2017 Anxiety 04/22/2017 Assessment & Plan (03/09/2022 12:43 PM ACCOUNTS RECEIVABLE SUPERVISOR): Chronic stabilized Will continue duloxetine at 90 mg Return in 3 months at which time she would like to come off the medication Assessment & Plan (01/29/2022 10:51 AM ACCOUNTS RECEIVABLE SUPERVISOR): Chronic worse due to ongoing situational stress [...] lorazepam Assessment & Plan (01/30/2019 9:06 AM ACCOUNTS RECEIVABLE SUPERVISOR): Markedly improved Sleep apnea 11/24/2012 Overview (06/26/2016): Sleep apnea Assessment & Plan (04/09/2023 2:41 PM ACCOUNTS RECEIVABLE SUPERVISOR): Patient is aware of comorbidities associated with [...] naltrexone. Assessment & Plan (04/24/2019 8:59 AM ACCOUNTS RECEIVABLE SUPERVISOR): Obesity is improving with treatment. Diet interventions: [...] gabapentin. Assessment & Plan (01/30/2019 9:06 AM ACCOUNTS RECEIVABLE SUPERVISOR): BMI Follow-up includes: education provided. Assessment & Plan (01/26/2019 8:45 AM ACCOUNTS RECEIVABLE SUPERVISOR): Obesity is improving with treatment. Diet interventions: [...] (12/10/2017): Added automatically from request for surgery [id number] BMI 31.0-31.9,adult 11/11/2017 12/21/19 19 Assessment & Plan (05/23/2018 10:03 AM ACCOUNTS RECEIVABLE SUPERVISOR): BMI Follow-up includes: education provided. Assessment & [...] nearly resolved. She was evaluated by an professor of exercise science. She was able to stop gabapentin one [...] 04/09/2023 Assessment & Plan (01/30/2019 9:06 AM ACCOUNTS RECEIVABLE SUPERVISOR): Remains under the care of [facility] wt management Assessment & Plan (10/28/2018 3:18 PM CDT): Reviewed labs, imaging, notes. 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 Routine medical [...] 12/20/2018 Assessment & Plan (04/08/2017 4:17 PM ACCOUNTS RECEIVABLE SUPERVISOR): Improved at this time. Will add bacroban to the region Idioventricular rhythm ([facility]) 01/06/2016 12/17/2021 Overview (06/25/2016): Idioventricular rhythm Atopic rhinitis 11/24/2012 04/09/2023 Overview (06/25/2016): ALLERGIC RHINITIS NOS Anxiety state 11/24/2012 05/23/2018 Overview (06/25/2016): ANXIETY STATE NOS Assessment & Plan (04/08/2017 4:19 PM ACCOUNTS RECEIVABLE SUPERVISOR): Pt was counseled for 20 of the 30 minutes appointment regarding her current state of anxiety she was very tearful in the room and currently is seeing a counselor. When her anxiety flared her motorcycle mechanic did change her to vybrium and she [...] seen again in the next 2 weeks. Encounters Date Type Department Care Team Description 07/12/2024 8:56 PM CDT - 07/12/2024 9:34 PM CDT Emergency [facility] Emergency Department [address] [place] [address] Discharge Disposition: Left without being seen 06/07/2024 Results Follow-Up [facility] Primary Care at [address] [address] Patt Erickson MD 06/06/2024 4:41 PM CDT - 06/06/2024 11:59 PM CDT Hospital Encounter [id number] [place] [address] Discharge Disposition: Discharge to home or self care 06/06/2024 3:30 PM CDT Office Visit [facility] Primary Care at [address] [place] [phone] Patt Erickson MD Hot flashes (Primary Dx); Family history of diabetes mellitus; Mild intermittent asthma without complication; Attention deficit hyperactivity disorder (ADHD), combined type; Weight gain; Morbid obesity with BMI of 40.0-44.9, adult (HCC) 05/09/2024 8:20 AM ACCOUNTS RECEIVABLE SUPERVISOR Office Visit [facility] [address] [place] [address] Acosta Mcdonald MD Paresthesia and pain of left extremity (Primary Dx); Neck pain; Acute pain of left shoulder; Disorder of left rotator cuff 04/27/2024 Orders Only [facility] [address] [place] [address] [place] [address] Niko Boo MD Left shoulder pain, unspecified chronicity (Primary Dx); Pain of left scapula 04/21/2024 Orders Only [facility] Primary Care at [facility] [address] [place] [id number] MuKatelynn sims, STAINED GLASS PAINTER from Last 3 Months Immunizations Immunization Administration Dates Next Due DTaP 5 Pertussis 09/23/2008 Hep B Vaccine 01/17/2024,09/01/2023,07/28/2023 Influenza, Quadrivalent, Spl it, Intramuscular 12/24/2022 Influenza, Quadrivalent, Spl it, Preservative Free, Intramuscular 02/09/2023 Influenza, Trivalent, High D ose, Split, Preservative Free, Intramuscular 12/20/2014 Influenza, Trivalent, Preser vative Free, Intramuscular 12/31/2023,12/25/2011 Influenza, Unspecified 01/08/2023,2021,01/13/2021,12/22,04/19/2018,01/12/2017 Pfizer SARS-CoV-2 Monovalent Vaccination (12+ Yrs) PURPLE 04/29/2020,04/09/2020 Tdap 05/23/2018 ZOSTER Recombinant 08/26/2022,04/10/2022 Surgical History Surgery Date Site/Laterality Comments SECTION x2 CHOLECYSTECTOMY Cholecystectomy GASTRIC BYPASS 03/22/2012 - 03/21/2013 Gastric bypass ABLATION uterine ablation KNEE SURGERY Bilateral ANAL FISTULOTOMY x2 ABDOMINAL SURGERY SECTION HYSTERECTOMY 01/20/2021 - 02/18/2021 LIPOMA RESECTION 01/20/2021 - 02/18/2021 Left FLUORO GUIDED INJECTION SHOULDER LEFT 03/17/2024 Left Medical History Medical History Date Comments Hx Other Medical basal cell carc inoma; Comments: MARK 01/03/2015 - Asthma Idioventricular rhythm (HCC) Anxiety Depression Fractures Joint pain Family History Medical History Relation Name Comments Multiple sclerosis Brother Diabetes Father Diabetes mellit us; Heart attack Father Myocardial infa rction; Hypertension Father Family history of hypertension - (Added by TW Conv)/Family history of hypertension - (Added by TW Conv) Lung cancer Father Cancer, lung; / Family history of lung cancer - (Added by Conv)/Family history of lung cancer - (Added by Conv) Heart disease Maternal Grandmother Heart disease; Coronary artery disease Other Fami ly history of Coronary artery disease; Heart disease Paternal Grandmother Heart disease; Relation Name Status Comments Brother Father Maternal Grandmother Mother Alive Other Paternal Grandmother Social History Tobacco Use Types Packs/Day Years [...] on file Legal Sex Female 4:16 AM ACCOUNTS RECEIVABLE SUPERVISOR Gender Identity Female 03/08/2022 7:49 PM ACCOUNTS RECEIVABLE SUPERVISOR Sexual Orientation Not on file 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 Not on file Not on file Obstetrics History Last Filed Vital Signs Vital Sign Reading [...] 06/06/2024 3:19 PM CDT Plan of Treatment Health Maintenance Due Date Last Done Comments Hepatitis C Screening 1970 Pneumococcal vaccine <65 (1 of 2 - PCV) 09/19/1990 Covid-19 Vaccine (3 - 2023-2 5 season) 2023 04/29/2020, 04/09/2020 Depression Screening 07/05/2024 07/06/2023, 07/06/2023, 04/09/2023, Additional history exists Regular Well Visit/Exam 18-64 07/05/2024, 06/04/2022, 06/04/2021, Additional history exists Breast Cancer Screening-Mammogram 08/26/2024 08/27/2023, 08/05/2022, 07/08/2021, Additional history exists Colon Cancer Screening-Colonoscopy 03/04/2027 03/04/2022 DTaP/Tdap/Td Vaccine (3 - Td or Tdap) 05/23/2028 05/23/2018, 09/23/2008 Cervical Cancer Screening Discontinued 08/15/2016 Zoster Vaccine Completed 08/26/2022, 04/10/2022 Influenza Vaccine Completed 12/31/2023, , 02/08/2023, Additional history exists Hepatitis B Screening Completed 01/17/2024 , 09/01/2023, 07/28/2023 Goals Goal Patient Goal Type Associated Problems [...] on stairs Contact your local community or [facility] for information on exercise, fall prevention [...] Results * eGFR (06/06/2024 4:01 PM CDT) [facility] eGFR >90 >=60 mL/min/1. 73 m2 Comment: [...] Erickson MD LAB BLOOD ORDERABLES Final Result [facility] [address] Department [place] [address] * Differential, auto (06/06/2024 4:01 PM CDT) [facility] Neutrophil abs 5.0 1.5 - 6.5 K/cumm Imm gran abs 0.0 0.0 - 0.1 K/cumm [facility] Lymphocyte abs 2.2 0.8 - 3.3 K/cumm [facility] Monocyte abs 0.8 0.2 - 0.8 K/cumm [facility] Eosinophil abs 0.3 0.0 - 0.5 K/cumm [facility] Basophil abs 0.1 0.0 - 0.1 K/cumm [facility] Neutrophil pct 60.2 % [facility] Comment: Interpretive Data Percent cell count reference ranges are not reported, since discordance with absolute values may lead to misinterpretation of CBC data. Current Interpretive Data was last revised on 2017. Imm gran pct 0.2 % [facility] Comment: Interpretive Data Percent cell count reference ranges are not reported, since discordance with absolute values may lead to misinterpretation of CBC data. Current Interpretive Data was last revised on 2017. Lymphocyte pct 26.0 % [facility] Comment: Interpretive Data Percent cell count reference ranges are not reported, since discordance with absolute values may lead to misinterpretation of CBC data. Current Interpretive Data was last revised on 2017. Monocyte pct 9.4 % [facility] Comment: Interpretive Data Percent cell count reference ranges are not reported, since discordance with absolute values may lead to misinterpretation of CBC data. Current Interpretive Data was last revised on 2017. Eosinophil pct 3.0 % [facility] Comment: Interpretive Data Percent cell count reference ranges are not reported, since discordance with absolute values may lead to misinterpretation of CBC data. Current Interpretive Data was last revised on 2017. Basophil pct 1.2 % [facility] Comment: Interpretive Data Percent cell count reference ranges are not reported, since discordance with absolute values may lead to misinterpretation of CBC data. Current Interpretive Data was last revised on 2017. Blood 06/06/2024 4:01 PM CDT 06/06/2024 7:49 PM CDT us Patt Erickson MD LAB BLOOD ORDERABLES Final Result [facility] [address] Department [place] [address] * Thyroid Function [place] (06/06/2024 4:01 PM CDT) TSH 1.09 0.30 - 4.20 mcIUnit/mL Blood 06/06/2024 4:01 PM CDT 06/06/2024 7:48 PM CDT us Patt Erickson MD LAB BLOOD ORDERABLES Final Result Performing Organization Address [facility] Co de Phone Number [facility] [address] [place] [address] * (ABNORMAL) CBC with auto differential (06/06/2024 4:01 PM CDT) [facility] WBC 8.3 3.8 - 9.9 K/cumm Hgb 12.3 11.9 - 15.5 g/dL [facility] Hct 38.4 35.6 - 45.5 % [facility] Plt 361 150 - 400 K/cumm [facility] MPV 9.2 9.1 - 12.3 fL [facility] RBC 4.33 3.90 - 5.20 M/cumm [facility] MCV 88.7 81.3 - 96.4 fL [facility] MCH 28.4 27.1 - 33.3 pg [facility] MCHC 32.0(L) 32.3 - 35.7 g/dL [facility] RDW CV 13.9 11.1 - 14.9 % [facility] RDW SD 44.7 35.7 - 48.1 fL [facility] NRBC abs 0.00 0.00 - 0.01 K/cumm [facility] Blood 06/06/2024 4:01 PM CDT 06/06/2024 7:49 PM CDT us Patt Erickson MD LAB BLOOD ORDERABLES Final Result Performing Organization Address [facility] Co de Phone Number [facility] [address] [place] [address] * Estradiol (06/06/2024 4:01 PM CDT) [facility] Estradiol 19.7 pg/mL Comment: Interpretive Data Males: [...] BLOOD ORDERABLES Final Result Performing Organization Address [facility] de Phone Number [facility] [address] [place] [address] * Hemoglobin A1c (06/06/2024 4:01 PM CDT) Hgb A1C 5.5 4.0 - 5.6 % Estimated Average Glucose 111 mg/dL [facility] Comment: The ADA recommends reporting an estimated Average Glucose (eAG) with all Hemoglobin A1c results using the equation derived from a study of 507 normal and diabetic adults. Minority populations were underrepresented and children were not included. (Diabetes Care 31:3115-8749, 2007). The eAG is not equivalent to a fasting glucose. Blood 06/06/2024 4:01 PM CDT 06/06/2024 7:49 PM CDT Result [facility] Patt Erickson MD LAB BLOOD ORDERABLES Final Result Performing Organization Address [facility] Co de Phone Number [facility] [address] [place] [place] [address] * Follicle stimulating hormone (06/06/2024 4:01 PM CDT) Pathologist [facility] FSH 49.50 mIUnits/mL Comment: Interpretive Data Males: 1.5 - 12.4 mIUnits/mL Females: Follicular Phase: 3.5 - 12.5 mIUnits/mL Ovulatory Phase: 4.7 - 21.5 mIUnits/mL Luteal Phase: 1.7 - 7.7 mIUnits/mL Post-menopausal: 25.8 - 134 mIUnits/mL Current Interpretive Data was last revised on 2016. Blood 06/06/2024 4:01 PM CDT 06/06/2024 7:48 PM CDT Patt Erickson MD LAB BLOOD ORDERABLES Final Result [facility] [address] Department [place] [address] * (ABNORMAL) Comprehensive metabolic panel (06/06/2024 4:01 PM CDT) Sodium 145 135 - 145 mmol/L Potassium, pl 4.0 3.3 - 4.9 mmol/L [facility] Chloride 106 97 - 110 mmol/L [facility] CO2 24 22 - 32 mmol/L [facility] Anion gap 15 2 - 15 mmol/L [facility] BUN 10 6 - 25 mg/dL [facility] Creatinine 0.62 0.60 - 1.10 mg/dL [facility] Glucose 78 70 - 199 mg/dL [facility] Comment: Interpretive Data Fasting glucose >/= 126 [...] 2022. Calcium 9.4 8.5 - 10.3 mg/dL [facility] Bilirubin, total 0.2 0.1 - 1.2 mg/dL [facility] Protein, pl 7.7 6.5 - 8.5 g/dL [facility] Albumin 4.5 3.5 - 5.0 g/dL [facility] Alk phos 168(H) 40 - 130 Units/L [facility] ALT 27 7 - 45 Units/L [facility] AST 26 10 - 45 Units/L [facility] Blood 06/06/2024 4:01 PM CDT 06/06/2024 7:48 PM CDT us Patt Erickson MD LAB BLOOD ORDERABLES Final Result [facility] [address] Department [place] [address] * Screening Mammogram Bilateral W Sushant (08/27/2023 9:18 AM CDT) Anatomical Region Laterality Modality Breast Bilateral Mammography Narrative 08/31/2023 8:04 AM CDT Mammogram Technique: Bilateral Digital Breast Tomosynthesis, Bilateral C-view 2D Screening mammogram. Views obtained: bilateral craniocaudal and bilateral mediolateral oblique. Computer Aided Detection was performed. Mammogram Findings: The present examination has been compared to prior imaging studies performed at [facility] on 12/08/2019 and 04/30/2020, and at [facility] on 07/08/2021 and 08/05/2022. The breasts are [...] compared to prior imaging studies performed at [facility] on 12/08/2019 and 04/30/2020, and at [facility] on 07/08/2021 and 08/05/2022. The breasts are [...] Most Recently Relevant to Health Maintenance Insurance [facility] HMO/PPO Address: [address] [address] [place] [address] [facility] [employer] Advance Directives For more information, please contact: [phone] * Full Code (Latest Code Status on File) Date Activated Date Inactivated Comments 12/22/2017 12:52 PM 12/22/2017 5:[address] Freight Brake Coupler Relationship Specialty Start Date End Date Patt Erickson MD [address] [address] PCP - General 01/06/16 Ruth Carroll DO [address] [address] Consulting Physician Cardiology 05/18/17
--- OUTSIDE RECORDS SUMMARY | 2024-07-13 16:08 | XMS_ITS | Encounter Summary ---
Author Organization [facility] Healthcare Address [address] [place] [address] Care Team Providers Care Fence Installer Foreman Name Role Phone Patt Erickson MD Primary Care Provider Ruth Carroll DO Unavailable Encounter Details Date Type Department Care Team (Late st Contact Info) Description 10/21/2023 Orders Only [facility] Health Information Management [address] [place] [id number] Scanning, Provider Social History Tobacco Use Types [...] on file Legal Sex Female 4:16 AM INKJET OPERATOR Gender Identity Female 03/08/2022 7:49 PM INKJET OPERATOR Sexual Orientation Not on file 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 Not on file Not on file documented as of this encounter Plan of Treatment Not on file documented as of this encounter Procedures Procedure Name Priority Date/Time Associated Diagnosis Comments SCAN - RADIOLOGY/IMAGING 10/21/2023 documented in this encounter Results * SCAN - RADIOLOGY/IMAGING (10/21/2023) Anatomical Region Laterality Modality Other us Provider Scanning Final Result documented in this encounter Visit Diagnoses Not on filedocumented in this encounter Care Teams Fence Installer Foreman Relationship Specialty Start Date End Date Patt Erickson MD [address] [phone] PCP - General 01/06/16 Ruth Carroll DO [address] [address] Consulting Physician Cardiology 05/18/17 documented as of this encounter
--- OUTSIDE RECORDS SUMMARY | 2024-07-13 16:08 | XMS_ITS | Encounter Summary ---
Author Organization [facility] Healthcare Address [address] [place] [address] Care Team Providers Care Collar Shaper Operator Name Role Phone Patt Erickson MD Primary Care Provider Ruth Carroll DO Unavailable Encounter Details Date Type Department Care Team (Late st Contact Info) Description 06/07/2024 Results Follow-Up [facility] Primary Care at [facility] [address] [address] Patt Erickson MD [address] [place] [id number] Social History Tobacco Use Types Packs/Day Years [...] on file Legal Sex Female 4:16 AM CATH LAB Gender Identity Female 03/08/2022 7:49 PM CATH LAB Sexual Orientation Not on file 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 documented as of this encounter Visit Diagnoses Not on filedocumented in this encounter Care Teams Collar Shaper Operator Relationship Specialty Start Date End Date Patt Erickson MD [address] [phone] PCP - General 01/06/16 Ruth Carroll DO [address] [address] Consulting Physician Cardiology 05/18/17 documented as of this encounter
--- OUTSIDE RECORDS SUMMARY | 2024-07-13 16:08 | XMS_ITS | Encounter Summary ---
Author Organization [facility] Healthcare Address [address] [place] [address] Care Team Providers Care Pan Greaser Name Role Phone Patt Erickson MD Primary Care Provider [phone] Reason for Visit * Diagnostic Imaging (Routine) - Closed Specialty Diagnoses / Procedures Referred By Contac t Referred To Contact Procedures Breast Imaging Screening Outside Reference Referral, Self Referral ID Status Reason Start Date Expiration Date Visits Re quested Visits Authorized [id number] Closed 08/24/2022 09/23/2023 1 1 Encounter Details Date Type Department Care Team (Late st Contact Info) Description 09/28/2016 Hospital Encounter [facility] [address] [place] [id number] Social History Tobacco Use Types Packs/Day Years [...] on file Legal Sex Female 4:16 AM COLLEGE ASSOCIATE Gender Identity Female 03/08/2022 7:49 PM COLLEGE ASSOCIATE Sexual Orientation Not on file 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 Monthly or less 12/14/2023 1:05 PM Lexy Dela Cruz RN Q2: How many drinks containing alcohol do you have on a typical day when you are drinking? 1 or 2 12/14/2023 1:05 PM Lexy Dela Cruz RN Q3: How often do you have six or more drinks on one occasion? Never 12/14/2023 1:05 PM Lexy Dela Cruz RN documented as of this encounter Plan of [...] on stairs Contact your local community or [facility] for information on exercise, fall prevention programs, or options for improving home safety. documented as of this encounter Procedures Procedure Name Priority Date/Time Associated Diagnosis Comments BREAST IMAGING MG SCREENING OUTSIDE REFERENCE Routine 09/28/2016 12:00 AM CDT documented in this encounter Results * Breast Imaging Screening Outside Reference (09/28/2016 12:00 AM CDT) Impressions [facility] - 08/24/2022 10:38 AM CDT These images are for Reference purposes only and have not been reviewed by [facility] Radiology. There will be no report generated by a [facility] Radiologist. Narrative [facility] - 08/24/2022 10:38 AM CDT EXAMINATION: Images For Reference Purposes Only us Self Referral IMG MAMMO PROCEDURES Final Resul t [facility] documented in this encounter Visit Diagnoses Not on filedocumented in this encounter Additional Health Concerns Infection Onset Date Last Indicated Resolved Time Exposure, COVID-19 Comment:Added automatically based on COVID19 lab answers indicating exposure risk 03/25/2020 03/25/2020 04/09/2020 3:[address] documented as of this encounter Care Teams Pan Greaser Relationship Specialty Start Date End Date Patt Erickson MD [address] [facility] [[email or web address]] [address] [place] [address] PCP - General 01/06/16 documented as of this encounter
== END 2024-07-13 14:54 | disposition home or self-care (01) ==
LOC: ANHIMG 14:56
PROVIDERS: PCP Family Medicine; Visit Provider Nurse Practitioner Family
DX: R10.2 Pelvic and perineal pain (principal)
CPT/HCPCS: 76830; 76856

== ENCOUNTER 2024-07-21 12:30 | Outpatient (RCR) | payer BC, OTHER, SELFPAY ==
--- NOTE | 2024-05-04 18:07 | OPREHPOC ---
Outpatient Therapy Plan of Care This is a Multidisciplinary Plan of Care that may contain components documented by all disciplines (PT, OT, and ST.) PT Problem 1 PT Problem #1 Knowledge Deficit PT Goal 1 Goal / Goal Update [place] with HEP Target Visit 4 PT Goal 2 Goal / Goal Update Report no pain consistently greater than 2/10 Target Visit 8 PT Problem 2 PT Problem #2 Impaired Range of Motion PT Goal 1 Goal / Goal Update 1. Improve angel cervical rotation ROM to 65 degrees to reduce trapezius compensation 2. Improve angel side bending ROM to 30 degrees to improve facet gliding Target Visit 8 PT Problem 3 PT Problem #3 Impaired Functional Mobility PT Goal 1 Goal / Goal Update Report 30% improvement in Oswestry neck index for gross functional improvement and pain relief Target Visit 8
--- NOTE | 2024-05-04 18:07 | PTOPEVAL1 ---
Assessment and note entered by Chapin Barnes, PT Evaluation Information Assessment Status Evaluation Diagnosis Arthritis of left glenohumeral joint ICD-10 Condition Codes (PT) Pain in low back M54.50,Pain in left shoulder M25. 512 Subjective Information Reports that she has been having shoulder blade issues since about 2020. She has had trigger point injections for this in the past and they helped a bit. The issue has come and gone for about the last 4 years. She is now having pain in the shoulder itself. She had a CT scan and did an ultrasound guided injection into the shoulder on 03/17/24. Reports that 2 weeks ago she was sitting at her desk and had severe pain shoot down her arm into her thumb and 2 fingers. She is getting pain with every position and is having trouble sleeping as well due to positioning. She has woken up in middle of night a few times with pain. Reported Pain Level Pain Score 5: Self Report Assessment PT Clinical Summary Patient presents with signs and symptoms consistent with cervical radiculopathy and shoulder tendinopathy. There appears to be a direct link between the diagnosis with significant upper trapezius activation indicating cervical compression and radicular symptoms into hand. 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 She would benefit from ergonomic assessment and potential implementation of standing desk. Patient will benefit from skilled therapy to address deficits. Plan of Care Interventions Electrical Stimulation,Hot Pack/Cold Pack,Manual Therapy,Mechanical Traction,Neuro Re-education, Therapeutic Activities,Therapeutic Exercise PT Services Indicated Yes Treatment Frequency and 1-2x/week for 8 visits Duration These treatments will address the objective and functional deficits as defined above. The patient will be advanced safely and appropriately in order for the patient to progress towards his/her prior level of function. Additional exercises will be introduced and as well as a comprehensive home exercise program upon discharge, if needed, ?to ensure carryover of functional gains achieved in the clinic. This treatment plan has been reviewed and agreement upon by the patient.
--- NOTE | 2024-06-30 11:07 | OPREHPOC ---
Outpatient Therapy Plan of Care This is a Multidisciplinary Plan of Care that may contain components documented by all disciplines (PT, OT, and ST.) PT Problem 1 PT Problem #1 Knowledge Deficit PT Goal 1 Goal / Goal Update [place] with HEP Target Visit 4 Progress Met PT Goal 2 Goal / Goal Update Report no pain consistently greater than 2/10 Target Visit 14 Progress Partially Met PT Problem 2 PT Problem #2 Impaired Range of Motion PT Goal 1 Goal / Goal Update 1. Improve angel cervical rotation ROM to 65 degrees to reduce trapezius compensation 2. Improve angel side bending ROM to 30 degrees to improve facet gliding Target Visit 14 Progress Partially Met PT Problem 3 PT Problem #3 Impaired Functional Mobility PT Goal 1 Goal / Goal Update Report 30% improvement in Oswestry neck index for gross functional improvement and pain relief Target Visit 14 Progress Partially Met
--- NOTE | 2024-06-30 11:07 | PTOPPROG ---
Assessment and note entered by Chapin Barnes, PT Evaluation Information Assessment Status Progress Diagnosis Arthritis of left glenohumeral joint ICD-10 Condition Codes (PT) Pain in low back M54.50,Pain in left shoulder M25. 512 Subjective Information Patient reports that with this round of therapy she has seen exceptional progress. Pain has been controlled but by the end of the work week she continues to note localized sharp pain to left scapula. Overall intensity is reduced but frequency is still there. Continues to feel weakness in the shoulder and arm as well. Feels neck mobility is improved but still has tension headaches with excessive neck flexion. Would like to continue skilled therapy to address these deficits. Assessment PT Clinical Summary Patient has seen excellent objective and subjective progress. 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 Will continue to benefit form skilled therapy to address deficits and promote extermination supervisor periscapular stability and postural strengthening. Plan of Care Interventions Electrical Stimulation,Hot Pack/Cold Pack,Manual Therapy,Mechanical Traction,Neuro Re-education, Therapeutic Activities,Therapeutic Exercise PT Services Indicated Yes Treatment Frequency and 1-2x/week for 8 visits Duration These treatments will address the objective and functional deficits as defined above. The patient will be advanced safely and appropriately in order for the patient to progress towards his/her prior level of function. Additional exercises will be introduced and as well as a comprehensive home exercise program upon discharge, if needed, ?to ensure carryover of functional gains achieved in the clinic. This treatment plan has been reviewed and agreement upon by the patient.
== END 2024-08-02 23:59 | disposition home or self-care (01) ==
LOC: ANHGOSHPT 12:30
PROVIDERS: PCP Internal Medicine
DX: M19.012 Primary osteoarthritis, left shoulder (principal)
CPT/HCPCS: 97110; 97140; 97161

== ENCOUNTER 2024-08-11 08:48 | Outpatient (RCR) | payer BC, SELFPAY ==
--- NOTE | 2024-08-11 11:01 | PCPTNOTE ---
Patient was a No Show/No Call for today's treatment. Called patient land left reminder of remaining appointments.
--- NOTE | 2024-08-18 15:53 | PCPTNOTE ---
Patient cancelled therapy this session through the portal. No reason given.
--- NOTE | 2024-08-25 10:27 | OPREHPOC ---
Outpatient Therapy Plan of Care This is a Multidisciplinary Plan of Care that may contain components documented by all disciplines (PT, OT, and ST.) PT Problem 1 PT Problem #1 Knowledge Deficit PT Goal 1 Goal / Goal Update [place] with HEP Target Visit 4 Progress Met PT Goal 2 Goal / Goal Update Report no pain consistently greater than 2/10 Target Visit 14 Progress Met PT Problem 2 PT Problem #2 Impaired Range of Motion PT Goal 1 Goal / Goal Update 1. Improve angel cervical rotation ROM to 65 degrees to reduce trapezius compensation 2. Improve angel side bending ROM to 30 degrees to improve facet gliding Target Visit 14 Progress Met PT Problem 3 PT Problem #3 Impaired Functional Mobility PT Goal 1 Goal / Goal Update Report 30% improvement in Oswestry neck index for gross functional improvement and pain relief Target Visit 14 Progress Met
--- NOTE | 2024-08-25 10:27 | PTOPDC ---
Assessment and note entered by Chapin Barnes, PT Evaluation Information Assessment Status Discharge Diagnosis Arthritis of left glenohumeral joint ICD-10 Condition Codes (PT) Pain in low back M54.50,Pain in left shoulder M25. 512 Subjective Information Reports that Wednesday and this week she had notable neck pain that had continued. Most pain in neck but some in side of head. Still having some inconsistent trouble with pain and headaches. Reports that she has been doing her exercises and wants to continue them post discharge. Reported Pain Level Pain Score 3: Self Report Assessment PT Clinical Summary Patient has met all goals for therapy and is suitable for discharge to [facility] at this time. She continues to have some subjective pain reports but overall is feeling that she has had a few weeks of symptoms resolutions with sporadic pain. Will discharge to [facility] at this time with urged compliance. Plan of Care PT Services Indicated Yes
== END 2024-11-09 23:59 | disposition home or self-care (01) ==
LOC: ANHGOSHPT 08:48
PROVIDERS: PCP Internal Medicine
DX: M19.012 Primary osteoarthritis, left shoulder (principal)
CPT/HCPCS: 97110; 97140

== ENCOUNTER 2024-09-02 08:09 | Emergency (ER) | payer BC, SELFPAY ==
--- NOTE | 2024-09-02 08:16 | ED.URI ---
HPI - URI/Sore Throat General Chief Complaint: Upper Respiratory Infection Stated Complaint: hard to breath/sinus congestion Time Seen by Provider: 09/02/24 08:45 Source: patient and RN notes reviewed Mode of arrival: ambulatory Limitations: no limitations History of Present Illness HPI Narrative: 53-year-old female presents concern for 6 day history of sinus congestion, pressure, cough, asthma exacerbation. She reports she has been using her albuterol inhaler every 2 hours without relief. She denies fevers. Reports she has a follow-up appointment with her ENT a couple of weeks. MD elicited complaint: cough and nasal congestion Related Data Home Medications ?Medication ?Instructions ?Recorded ?Confirmed ?Last Taken ?Type multivitamin 1 tablet PO DAILY 12/18/20 06/23/24 09/23/23 History albuterol sulfate 90 mcg/actuation 2 puff inhalation Q4H PRN SOB 01/27/21 06/23/24 01/29/23 History aerosol inhaler lorazepam 1 mg tablet 1 mg PO DAILY PRN Anxiety 12/13/21 06/23/24 09/29/23 History cyanocobalamin (vitamin B-12) 1,000 mcg PO DAILY 04/16/22 06/23/24 09/23/23 History 1,000 mcg tablet,extended release calcium 333 mg-vit D3 200 1 tablet PO BID 07/15/22 06/23/24 09/23/23 History unit-magnesium 133 mg-zinc 5 mg tablet omega 2-bdr-ehu-fish oil 100 1 cap PO BID 07/15/22 06/23/24 09/23/23 History mg-160 mg-1,000 mg capsule (Fish Oil) onabotulinumtoxinA 200 unit 200 unit intradermal [id number] 01/22/23 06/23/24 06/30/23 History solution for injection (Botox) MIGRAINE rizatriptan 10 mg disintegrating 10 mg PO DAILY PRN Migraine 01/29/23 06/23/24 09/29/23 History tablet Headache acetaminophen 500 mg capsule 1,000 mg PO Q6H PRN Pain 08/30/23 06/23/24 Unknown History biotin 800 mcg tablet 800 mcg PO DAILY 08/30/23 06/23/24 09/23/23 History cholecalciferol (vitamin D3) 125 125 mcg PO DAILY 08/30/23 06/23/24 09/23/23 History mcg (5,000 unit) tablet dextroamphetamine-amphetamine 10 10 mg PO DAILY 08/30/23 06/23/24 09/28/23 History mg tablet potassium 99 mg tablet 99 mg PO DAILY 08/30/23 06/23/24 09/23/23 History semaglutide (weight loss) 0.5 0.5 mg subcut WEEKLY WEIGHT LOSS 08/30/23 06/23/24 09/16/23 History mg/0.5 mL subcutaneous pen injector duloxetine 60 mg capsule,delayed 60 mg PO DAILY 04/06/24 06/23/24 Unknown History release celecoxib 100 mg capsule mg 04/07/24 06/23/24 Unknown History Allergies Allergy/AdvReac Type Severity Reaction Status Date / Time adhesive tape AdvReac Severe Rash Verified 09/02/24 08:14 NSAIDS (Non-Steroidal AdvReac Ulcers Verified 09/02/24 08:14 Anti-Inflamma Review of Systems Review of Systems: CONSTITUTIONAL: Denies malaise, chills, sweats, or fever. EYES: Denies visual changes, redness, or discharge. ENT: Reports rhinorrhea, congestion, sinus pain, otalgia CARDIOVASCULAR: Denies chest pain, palpitations, or edema. RESPIRATORY: Reports cough, dyspnea. GASTROINTESTINAL: Denies abdominal pain, nausea, vomiting, diarrhea SKIN: Denies rash or itching. MUSCULOSKELETAL: Denies myalgia. NEUROLOGIC: Reports headache. All systems reviewed & are unremarkable except as noted in HPI and below PMFSH Past Medical History Medical History ADHD Bradycardia History of ADHD History of migraine Colon cancer screening Anxiety Asthma Surgical History Surgical History History of left knee replacement H/O: hysterectomy 01/2021 History of surgery uterine ablation 07/2016 History of abdominoplasty 06/2015 History of gastric surgery lap 02/2013 History of knee surgery R knee lateral release with scope 12/2008, L knee lateral release with scope 11/2009 History of laparoscopic cholecystectomy 11/2002 History of section 02/22/98, 02/24/02 Family History Family History Father Family history of congenital heart disease Family history of lung cancer Patient's father is Grandparent Family history of congenital heart disease Family history of osteoarthritis Other Family history of arthritis Family history of heart disease in male family member before age 55 Family history of kidney disease Hypertension Social History Social History Smoking status: Never smoker Second hand tobacco smoke exposure: Yes (as child) Alcohol intake: current Drinks per week: 1 Alcohol use details: 2 DRINKS PER MONTH Substance use: never Substance use type: does not use Do You Feel Safe in your Home?: Yes Lack of Transportation: No Lack of Food: Never True Current Housing: I Have Housing Concerned About Future Housing: No Difficulty Paying Gas/Electric Bills: No Difficulty Paying for Meds: No Currently Unemployed: No Education: High School Diploma/GED Difficulty w/ Childcare or Family Care: No Living arrangements: with family Spiritual care concerns: No Comments At time of signature, agree with nursing past medical, surgical, social and family history. There is no relevant family history pertinent to the presenting complaint Exam Narrative: GENERAL: Well-appearing, well-nourished, and in no acute distress. HEAD: Normocephalic EYES: PERRLA, conjunctivae clear ENT: Nares clear, turbinates edematous and erythematous. Mucous membranes moist. TM pearly serrano with dull light reflex bilaterally; no tragal tenderness. Oropharynx not erythematous without lesions. Tonsils not enlarged and without exudate, no drooling, no hoarseness, no trismus, uvula midline. NECK: Supple. No lymphadenopathy CHEST: Clear to auscultation, breath sounds equal. No wheezing, rhonchi, rales, or stridor. No respiratory distress, speaks in full sentences. HEART: Regular rate and rhythm. No murmur heard. SKIN: Warm, dry, no rash. NEURO: Alert and oriented x3. PSYCH: Normal mood and affect Course Course Emergency Course: Patient is aware of diagnosis, understands and agrees to treatment plan. Anticipatory guidance given. Patient agrees to follow-up as directed and is aware of reasons to seek care at the emergency department. Portions of this record may have been created with voice recognition software Level of Care: Express Care Visit Vital Signs Vital signs: Reviewed. MDM - URI/Sore Throat MDM Narrative Medical decision making narrative: Differential diagnosis considered: Disla virus, strep pharyngitis, allergic rhinitis, upper respiratory tract infection, sinusitis, rhinosinusitis, nasopharyngitis. viral pharyngitis, otitis media, otitis externa, pneumonia, bronchitis, viral cough syndrome, viral syndrome, and influenza. Exam findings show no acute concerns or changes; patient is non-toxic appearing and is in no distress. Patient is appropriate for outpatient treatment and follow-up. Lab Data Attestation: I reviewed the patient's lab results. Critical Care Time Critical Care Time Critical Care Time: No Discharge Plan Discharge Clinical Impression: Sinobronchitis Patient Disposition: Home Condition: Stable Instructions: Antibiotic Form, Acute Bronchitis (ED) Additional Instructions: Take medication as prescribed Recommend antihistamine such as Benadryl at night time and Zyrtec or Bonnie during the day Use inhaler as needed for cough, wheezing, shortness of breath or chest tightness. Also, recommend symptomatic treatment includes: rest, fluids, and increase humidity of the air at home. Recommend Acetaminophen as directed on the bottle to reduce fever, pain, headache. Avoid smoking/second-hand smoke. Please schedule a follow-up visit with your personal physician for further evaluation and treatment within 3-5days. If your symptoms persist, change or worsen significantly before you can contact your personal physician then please, without delay, go to the emergency department for further evaluation. Patient Language: Lao Prescriptions: New prednisone 20 mg tablet 40 mg PO DAILY 5 Days Qty: 10 0RF azithromycin [Zithromax Z-Cody] 250 mg tablet See Rx Instructions .ROUTE .COMPLEX Qty: 6 0RF Rx Instructions: take 500 mg today (day 1), then 250 mg for 4 days (days 2-5) No Action lorazepam 1 mg tablet 1 mg PO DAILY PRN (Reason: Anxiety) Botox 200 unit recon soln 200 unit intradermal [id number] Rx Instructions: for migraine per Dr. Canales celecoxib 100 mg capsule multivitamin Tablet 1 tablet PO DAILY cyanocobalamin (vitamin B-12) 1,000 mcg tablet extended release 1,000 mcg PO DAILY calcium carb-D3-mag [phone] bc-whub-ip-mg tablet 1 tablet PO BID Rx Instructions: administer with a meal Fish Oil 100-160-1,000 mg capsule 1 cap PO BID dextroamphetamine-amphetamine 10 mg tablet 10 mg PO DAILY oxycodone-acetaminophen 5-325 mg tablet 1 - 2 tablet PO Q4-6H MDD 4 PRN (Reason: pain) Qty: 20 0RF duloxetine 60 mg capsule,delayed release(DR/EC) 60 mg PO DAILY (DME) CPAP Repair/ Replace See Rx Instructions .Route .MEDSUPPLY Qty: 1 0RF Rx Instructions: Patient's machine is intermittently turning on and off during the day. It has turned off while she is sleeping. Machine also started to get extremely hot on the bottom. If possible, replace with AirSense 10 APAP set at 12 cm H2O with EPR of 2 albuterol sulfate 90 mcg/actuation HFA aerosol inhaler 2 puff INHALATION Q4H PRN (Reason: SOB) rizatriptan 10 mg tablet,disintegrating 10 mg PO DAILY MDD 2 PRN (Reason: Migraine Headache) cholecalciferol (vitamin D3) 125 mcg (5,000 unit) Tablet 125 mcg PO DAILY semaglutide (weight loss) 0.5 mg/0.5 mL Pen Injector 0.5 mg SUBCUT WEEKLY Patient Comments: TAKES ON SUNDAYS Rx Instructions: administer weeks 5 through 8 of therapy potassium 99 mg Tablet 99 mg PO DAILY acetaminophen [Tylenol Extra Strength] 500 mg Capsule 1,000 mg PO Q6H PRN (Reason: Pain) biotin 800 mcg Tablet 800 mcg PO DAILY cyclobenzaprine 10 mg tablet 10 mg PO TID PRN (Reason: muscle spasm) Qty: 30 0RF (DME) CPAP Equipment See Rx Instructions .Route .MEDSUPPLY Qty: 1 0RF Rx Instructions: Rx: size small Resmed AirFit P10 mask DME: [facility] (DME) CPAP Pressure See Rx Instructions .Route .MEDSUPPLY Qty: 1 0RF Rx Instructions: Rx: Changed pressure settings to 11 cm H2O with EPR of 2; Already changed on [employer] Dx: G47.33 DME: [facility] Imvexxy Maintenance Pack 4 mcg insert 4 mcg vaginal 2XW Qty: 24 0RF amoxicillin 500 mg tablet 500 mg PO ONCE Qty: 4 0RF Rx Instructions: Take 4 tablets 1 hour prior to dental procedure. Follow-up/Referrals: RICHIE,YANI Segovia M.D. [Primary Care Provider] - Stand Alone Forms: Work/School Release IP Time of Disposition: 08:53
[2024-09-02 08:20] VITALS: BP 136/79; PULSE 68; RESP 16; TEMP 36.3; O2SAT 99
== END 2024-09-02 09:00 | disposition home or self-care (01) ==
PROVIDERS: PCP Internal Medicine
DX: J32.9 Chronic sinusitis, unspecified (principal); J40 Bronchitis, not specified as acute or chronic; F41.9 Anxiety disorder, unspecified; F90.9 Attention-deficit hyperactivity disorder, unspecified type; J45.909 Unspecified asthma, uncomplicated; Z96.652 Presence of left artificial knee joint; Z98.84 Bariatric surgery status
CPT/HCPCS: 99213; G0463

== ENCOUNTER 2024-11-03 07:27 | Outpatient (CLI) | payer BC, SELFPAY ==
--- NOTE | ~2024-11-03 | XR_ITS ---
XR knee LT 3V 11/03/2024 08:11 Indication: Left knee swelling Procedure: 3 views left knee Comparison: No prior studies for comparison. Findings: There is a left total knee arthroplasty. Moderate joint effusion. There is prepatellar soft tissue swelling. Prosthesis is well seated. No underlying fracture or traumatic malalignment. Impression: 1: Moderate joint effusion with prepatellar and infrapatellar soft tissue swelling. 2: No acute fracture. Reviewed, dictated and finalized at location A. Impression: 1: Moderate joint effusion with prepatellar and infrapatellar soft tissue swell ing. 2: No acute fracture.
--- OUTSIDE RECORDS SUMMARY | 2024-11-03 07:33 | XMS_ITS | Encounter Summary ---
Author Organization [facility] Healthcare Address [address] [place] [address] Care Team Providers Care Talent Acquisition Administrator Name Role Phone Patt Erickson MD Primary Care Provider Ruth Carroll DO Unavailable Encounter Details Date Type Department Care Team (Late st Contact Info) Description 07/13/2024 Orders Only [facility] [place] [facility] [address] [place] [address] Scanning, Provider Social History Tobacco [...] points, staff should administer the PHQ-9) 0 07/14/2024 PHQ-9 Answer Date Recorded PHQ-9 Total Score 11 07/06/2023 Comments No Sex and Gender Information Value Date Recorded Sex Assigned at Not on file Legal Sex Female 4:16 AM SHEEP SORTER Gender Identity Female 03/08/2022 7:49 PM SHEEP SORTER Sexual Orientation Not on file 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 documented as of this encounter Procedures Procedure Name Priority Date/Time Associated Diagnosis Comments SCAN - RADIOLOGY/IMAGING 07/13/2024 documented in this encounter Results * SCAN - RADIOLOGY/IMAGING (07/13/2024) Anatomical Region Laterality Modality Other us Provider Scanning Final Result documented in this encounter Visit Diagnoses Not on filedocumented in this encounter Care Teams Talent Acquisition Administrator Relationship Specialty Start Date End Date Patt Erickson MD [address] [address] PCP - General 01/06/16 Ruth Carroll DO [address] [facility] [address], [place] [address] Consulting Physician Cardiology 05/18/17 documented as of this encounter
--- OUTSIDE RECORDS SUMMARY | 2024-11-03 07:33 | XMS_ITS | Encounter Summary ---
Author Organization [facility] Healthcare Address [address] [place] [address] Care Team Providers Care Payroll And Benefits Specialist Name Role Phone Patt Erickson MD Primary Care Provider Ruth Carroll DO Unavailable Encounter Details Date Type Department Care Team (Late st Contact Info) Description 02/21/2024 Orders Only [facility] Health Information Management [address] [place] [address] Scanning, Provider Social History Tobacco [...] on file Legal Sex Female 4:16 AM LICENSING SPECIALIST Gender Identity Female 03/08/2022 7:49 PM LICENSING SPECIALIST Sexual Orientation Not on file 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
--- OUTSIDE RECORDS SUMMARY | 2024-11-03 07:33 | XMS_ITS | Encounter Summary ---
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
--- OUTSIDE RECORDS SUMMARY | 2024-11-03 07:33 | XMS_ITS | Encounter Summary ---
Author Organization [facility] Healthcare Address [address] [place] [address] Care Team Providers Care Classroom Instructor Name Role Phone Patt Erickson MD Primary Care Provider Reason for Visit * Diagnostic Imaging (Routine) - Closed Specialty Diagnoses / Procedures Referred By Contac t Referred To Contact Procedures Breast Imaging Screening Outside Reference Referral, Self Referral ID Status Reason Start Date Expiration Date Visits Re quested Visits Authorized [id number] Closed 08/24/2022 09/23/2023 1 1 Encounter Details Date Type Department Care Team (Late st Contact Info) Description 09/28/2016 Hospital Encounter [facility] [address] [place] [address] Social History Tobacco Use Types Packs/Day Years [...] on file Legal Sex Female 4:16 AM CIRCUS HAND Gender Identity Female 03/08/2022 7:49 PM CIRCUS HAND Sexual Orientation Not on file 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 Radiology. There will be no report generated by a [facility] Radiologist. Narrative [facility] - 08/24/2022 10:38 [...] documented as of this encounter Care Teams Classroom Instructor Relationship Specialty Start Date End Date Patt Erickson MD [address] [place] [address] PCP - General 01/06/16 documented as of this encounter
--- OUTSIDE RECORDS SUMMARY | 2024-11-03 07:33 | XMS_ITS | Clinical Summary ---
Author Organization [facility] Address [address] [place] [id number] Care Team Providers Care Drawing Box Tender Name Role Phone Unavailable Primary Care Provider [...] Comments Blood Pressure 110/80 05/23/2014 11:14 AM FIREPOT OPERATOR AND TENDER Pulse 57 05/23/2014 11:14 AM FIREPOT OPERATOR AND TENDER Temperature - - Respiratory Rate - - Oxygen Saturation - - Inhaled Oxygen Concentration - - Weight 90.7 kg (200 lb) 05/23/2014 11:14 AM FIREPOT OPERATOR AND TENDER Height 170.2 cm (5' 7) 05/23/2014 11:14 AM FIREPOT OPERATOR AND TENDER Body Mass Index 31.32 05/23/2014 11:14 AM FIREPOT OPERATOR AND TENDER Plan of Treatment Health Maintenance Due Date [...]
--- OUTSIDE RECORDS SUMMARY | 2024-11-03 07:34 | XMS_ITS | Encounter Summary ---
Author Organization [facility] Address [address] [place] [address] Phone Care Team Providers Care Date Night Caregiver Name Role Phone Patt Erickson MD Primary [...] on file Legal Sex Female 4:16 AM CLIPPING MARKER Gender Identity Female 03/08/2022 7:49 PM CLIPPING MARKER Sexual Orientation Not on file Occupation Industry Job Start Date Job End Date [employer] Not on file Not on file Not [...] on filedocumented in this encounter Care Teams Date Night Caregiver Relationship Specialty Start Date End Date Patt Erickson MD [address] [id number] PCP - General 01/06/16 Ruth Carroll DO [address] [facility] [address], [place] [id number] Consulting Physician Cardiology 05/18/17 documented as of this encounter
--- OUTSIDE RECORDS SUMMARY | 2024-11-03 07:34 | XMS_ITS | Clinical Summary ---
Author Organization [facility] Address [address] [address] Care Team Providers Care Manager Talent Acquisition Name Role Phone Patt Erickson MD Primary Care Provider Ruth Carroll DO Unavailable Allergies Active Allergy Reactions Criticality Noted Date Comments Adhesive Rash Medium Bupropion Other (See comments) Low 10/28/2018 Depression Ibuprofen Hives Medium 06/18/2017 Medications calcium citrate 250 mg calcium tablet 0 0 02/01/20 15 Active multivitamin tablet pt stated they are taking chewables 2x Active onabotulinumtoxin A (Botox) 200 unit recon soln Botox 200 unit injection Active albuterol HFA (PROVENTIL HFA,VENTOLIN HFA,PROAIR HFA) 90 mcg/actuation inhaler INHALE 2 PUFFS BY MOUTH EVERY 4 HOURS NEEDED FOR WHEEZING OR SHORTNESS OF BREATH 8.5 g 5 01/12/20 23 Active ascorbic acid, vitamin C, (ascorbic acid) 250 mg tablet,chewable 02/07/20 23 Active biotin 10,000 mcg capsule 01/07/20 23 Active calcium-magnesium -zinc 333-133-5 mg tablet Active lycopene/lutein/f ruit extract (FRUIT AND VEGETABLE DAILY ORAL) 09/20/19 23 Active omega-3 fatty acids/fish oil (OMEGA 3 FISH OIL ORAL) 11/07/19 23 Active potassium gluconate 550 mg (90 mg) tablet 05/21/[address] (CYMBALTA) 60 mg capsule Take 1 capsule (60 mg total) by mouth daily 30 capsule 11 04/03/19 25 Active rizatriptan NEWS DIRECTOR (MAXALT-NEWS DIRECTOR) 10 mg disintegrating tabletIndications :Migraine Take 1 [...] tablet 06/07/19 25 Active tirzepatide, weight loss, (Zepbound) 5 mg/0.5 mL pen injector Inject 0.5 mL (5 mg total) under the skin every 7 days 07/15/19 25 Active ferrous sulfate 325 mg (65 mg of elemental iron) tablet Take 1 tablet (325 mg total) by mouth daily with breakfast 07/15/19 25 Active celecoxib (CeleBREX) 100 mg capsule Take 1 capsule (100 mg total) by mouth 2 (two) times a day 180 capsule 1 07/21/19 25 Active LORazepam (ATIVAN) 1 mg tablet TAKE 1 TABLET BY MOUTH NIGHTLY NEEDED FOR ANXIETY. 30 tablet 2 10/03/19 25 Active dexmethylphenidat e XR (FOCALIN XR) 5 mg 24 hr capsuleIndication s:Attention-Defic it Hyperactivity Disorder Take 1 capsule (5 mg total) by mouth daily 30 capsule 10/03/19 25 Active estradioL (ESTRACE) 1 mg tablet Take 1 tablet (1 mg total) by mouth daily 08/17/19 25 Active Imvexxy Maintenance Pack 4 mcg insert vaginal insert 07/08/19 25 Active famotidine (PEPCID) 40 mg tablet TAKE 1 TABLET BY MOUTH DAILY AT BEDTIME NEEDED 09/16/19 25 Active ergocalciferol (VITAMIN D) 50,000 unit capsule TAKE 1 CAPSULE BY MOUTH ONE TIME PER WEEK 12 capsule 10/11/19 25 Active fluticasone propion-salmetero L (Wixela Inhub) 100-50 mcg/dose diskus inhaler INHALE 1 PUFF 2 TIMES A DAY RINSE MOUTH WITH WATER AFTER USE. DO NOT SWALLOW. 60 each 1 10/14/19 25 Active ergocalciferol (VITAMIN D) 50,000 unit capsule Take 1 capsule (50,000 Units total) by mouth once a week 12 capsule 07/18/19 25 025 Discontinued fluticasone propion-salmetero L (ADVAIR DISKUS) 100-50 mcg/dose diskus inhaler Inhale 1 puff 2 (two) times a day Rinse mouth with water after use. Do not swallow. 1 each 09/16/19 25 025 Discontinued Active Problems Problem Noted [...] 04/09/2023 Assessment & Plan (04/09/2023 2:41 PM COOK SPECIALTY): Weight gain of over 20 lb is past year since patient has been off mounjaro. History of gastric bypass Blood work stable hemoglobin A1c is 5.9 Hypokalemia 04/09/2023 Assessment & Plan (04/09/2023 2:39 PM COOK [facility]TY): Outside labs received potassium level is now stable Palpitations 02/16/2023 Kidney stone 06/04/2022 Intractable episodic headache 01/29/2022 Assessment & Plan (03/09/2022 12:42 PM COOK [employer]TY): Improved however does remain on control as [...] months Assessment & Plan (01/29/2022 10:52 AM COOK [employer]): Uncontrolled Patient mildly responded to the use [...] effective Assessment & Plan (03/09/2022 12:42 PM COOK [employer]TY): Currently controlled on Adderall Assessment & Plan [...] 10/28/2018 Assessment & Plan (04/09/2023 2:44 PM COOK [employer]TY): We explored options related to her weight [...] eating Assessment & Plan (03/09/2022 12:43 PM COOK SPECIALTY): Patient with ongoing use of monjauro off [...] exercise. Assessment & Plan (04/24/2019 8:56 AM COOK [employer]TY): Reviewed calorie restriction based on BMR as previously detailed. Reviewed recommendation/goal of >/= 150 minutes/week moderate-intensity aerobic exercise. She plan to start tracking with My Fitness Pal again. Assessment & Plan (01/26/2019 8:44 AM COOK SPECIALTY): Reviewed calorie restriction based on BMR as [...] diet. Assessment & Plan (04/24/2019 8:59 AM COOK SPECIALTY): Labs. Continue low-carb (<150 g/day), low-glycemic diet. Assessment & Plan (01/26/2019 8:45 AM COOK SPECIALTY): Continue low-carb (<150 g/day), low-glycemic diet. Reviewed [...] w/r/t gut microbiome. Referred to ADA and [facility] websites for additional information on topics including glycemic index/carbohydrate choices, protein sources. Vitamin D deficiency 05/18/2017 Assessment & Plan (05/29/2019 9:31 AM CDT): Recheck today Intestinal malabsorption 04/27/2017 Assessment & Plan (12/24/2018 4:59 PM CDT): Ferritin, folic acid, B12, vit D, copper all in good range on current supplements. S/P bariatric surgery 04/22/2017 Anxiety 04/22/2017 Assessment & Plan (03/09/2022 12:43 PM [facility]): Chronic stabilized Will continue duloxetine at 90 mg Return in 3 months at which time she would like to come off the medication Assessment & Plan (01/29/2022 10:51 AM [facility]): Chronic worse due to ongoing situational stress [...] lorazepam Assessment & Plan (01/30/2019 9:06 AM [facility]): Markedly improved Sleep apnea 11/24/2012 Overview (06/26/2016): Sleep apnea Assessment & Plan (04/09/2023 2:41 PM [facility]): Patient is aware of comorbidities associated with [...] naltrexone. Assessment & Plan (04/24/2019 8:59 AM [facility]): Obesity is improving with treatment. Diet interventions: [...] gabapentin. Assessment & Plan (01/30/2019 9:06 AM COOK [facility]TY): BMI Follow-up includes: education provided. Assessment & Plan (01/26/2019 8:45 AM COOK [employer]TY): Obesity is improving with treatment. Diet interventions: [...] (12/10/2017): Added automatically from request for surgery [id number] BMI 31.0-31.9,adult 11/11/2017 12/21/19 19 Assessment & Plan (05/23/2018 10:03 AM [facility]): BMI Follow-up includes: education provided. Assessment & [...] nearly resolved. She was evaluated by an retail experience specialist. She was able to stop gabapentin one [...] 04/09/2023 Assessment & Plan (01/30/2019 9:06 AM COOK [facility]): Remains under the care of [facility] wt management Assessment & Plan (10/28/2018 3:18 PM CDT): Reviewed labs, imaging, notes. 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 Routine medical [...] 12/20/2018 Assessment & Plan (04/08/2017 4:17 PM [facility]OOK [facility]): Improved at this time. Will add bacroban to the region Idioventricular rhythm (CMS/HCC) 01/06/2016 12/17/2021 Overview (06/25/2016): Idioventricular rhythm Atopic rhinitis 11/24/2012 04/09/2023 Overview (06/25/2016): ALLERGIC RHINITIS NOS Anxiety state 11/24/2012 05/23/2018 Overview (06/25/2016): ANXIETY STATE NOS Assessment & Plan (04/08/2017 4:19 PM [facility]): Pt was counseled for 20 of the 30 minutes appointment regarding her current state of anxiety she was very tearful in the room and currently is seeing a counselor. When her anxiety flared her mine technician did change her to vybrium and she [...] Encounters Date Type Department Care Team Description 09/15/2024 Orders Only [facility] Primary Care at [address] [place] [phone] Patt Erickson MD 09/15/2024 Nurse Triage [facility] Primary Care at [address] [place] [phone] Patt Erickson MD 09/15/2024 Telephone [facility] Primary Care at [facility] [address] [facility] [address], [place] [phone] Patt Erickson MD Medical Question/Miscellane ous 08/26/2024 9:15 AM CDT - 08/26/2024 11:59 PM CDT Hospital Encounter [facility] [address] [place] [phone] Screening mammogram, encounter for Discharge Disposition: Discharge to home or self care from Last 3 Months Immunizations Immunization Administration Dates Next Due DTaP 5 Pertussis 09/23/2008 Hep B Vaccine 01/17/2024,09/01/2023,07/28/2023 Influenza, Quadrivalent, Spl it, Intramuscular 12/24/2022 Influenza, Quadrivalent, Spl it, Preservative Free, Intramuscular 02/09/2023 Influenza, Trivalent, High D ose, Split, Preservative Free, Intramuscular 12/20/2014 Influenza, Trivalent, Preser vative Free, Intramuscular 12/31/2023,12/25/2011 Influenza, Unspecified 01/08/2023,2021,01/13/2021,12/22,04/19/2018,01/12/2017 Pfizer SARS-CoV-2 Monovalent Vaccination (12+ Yrs) PURPLE 04/29/2020,04/09/2020 Pneumococcal Conjugate Pcv20 07/14/2024 Tdap 05/23/2018 ZOSTER Recombinant 08/26/2022,04/10/2022 Surgical History [...] Family history of hypertension - (Added by Conv)/Family history of hypertension - (Added by Conv) Lung cancer Father Cancer, lung; / [...] on file Legal Sex Female 4:16 AM COOK SPECIALTY Gender Identity Female 03/08/2022 7:49 PM COOK SPECIALTY Sexual Orientation Not on file 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 Not on file Not on file Obstetrics History Para Term AB IAB SAB Ectopic Multiple Livin g Live Births 2 2 2 Date Outcome GA Total Labor Labor/2nd/3rd Weight Sex Type Anes PTL Paulette A1 A5 Name Clin Term Term Last Filed Vital Signs Vital Sign Reading Time Taken Comments Blood Pressure 116/64 07/14/2024 8:55 AM CDT Pulse 83 07/14/2024 8:55 AM CDT Temperature 36 C (96.8 F) 12/14/2023 12:48 PM CDT Respiratory Rate 18 06/06/2024 3:19 PM CDT Oxygen Saturation 98% 07/14/2024 8:55 AM CDT Inhaled Oxygen Concentration - - Weight 111.1 kg (244 lb 14.9 oz) 08/26/2024 9:26 AM CDT Height 170.2 cm (5' 7.01) 08/26/2024 9:26 AM CD T Body Mass Index 38.35 08/26/2024 9:26 AM CDT Plan of Treatment Health Maintenance Due Date Last Done Comments Hepatitis C Screening 1970 Covid-19 Vaccine (3 - 2023-2 5 season) 2023 04/29/2020, 04/09/2020 Influenza Vaccine (#1) 2024 , 02/09/2023, 02/08/2023, Additional history exists Depression Screening 07/14/2025 07/14/2024, 07/06/2023, 07/06/2023, Additional history exists Regular Well Visit/Exam 18-64 07/14/2025, 07/06/2023, 06/04/2022, Additional history exists Breast Cancer Screening-Mammogram 08/26/2025 08/26/2024, 08/27/2023, 08/05/2022, Additional history exists Colon Cancer Screening-Colonoscopy 03/04/2027 03/04/2022 DTaP/Tdap/Td Vaccine (3 - Td or Tdap) 05/23/2028 05/23/2018, 09/23/2008 Cervical Cancer Screening Discontinued 08/15/2016 Zoster Vaccine Completed 08/26/2022, 04/10/2022 Hepatitis B Screening Completed 01/17/2024 , 09/01/2023, 07/28/2023 Pneumococcal vaccine <65 Completed 07/14/2024 Goals Goal Patient Goal Type Associated Problems Recent Progress Patient-Stated? Author CCM Chronic Pain Care Plan Chronic Care Management Ruth Giles, RN Note: Problem: Chronic Pain Goals: 1. Minimize further functional decline 2. Maximize quality of life 3. Control pain Strategies: - Activity/exercise program recommendation - Conservative stepwise pain medicine strategy with multi-disciplinary approach - Recommend healthy lifestyle strategies and compensatory methods as needed Reduce the likelihood of falling Lifestyle Ruth Giles RN Note: Below are four things you [...] on stairs Contact your local community or [facility] for information on exercise, fall prevention programs, or options for improving home safety. Procedures Procedure Name Priority Date/Time Associated Diagnosis Comments SCREENING MAMMOGRAM BILATERAL W SUSHANT Schedule Routine, Read Routine (OP Routine) 08/26/2024 9:37 AM CDT Screening mammogram, encounter for COLONOSCOPY Routine 03/04/2022 HM PAP SMEAR WITH HPV Routine 08/15/2016 from Last 3 Months or Most Recently Relevant to Health Maintenance Results * Screening Mammogram Bilateral W Sushant (08/26/2024 9:37 AM CDT) Anatomical Region Laterality Modality Breast Bilateral Mammography Impressions 08/27/2024 5:29 PM CDT Bilateral No evidence of malignancy in either breast. OVERALL BI-RADS FINAL ASSESSMENT: 2 - Benign RECOMMENDATION: Recommend bilateral annual screening mammography. Narrative 08/27/2024 5:29 PM CDT EXAMINATION: Screening Mammogram Bilateral W Sushant: 08/26/2024 COMPARISON: Relevant prior studies available at the time of interpretation were reviewed. TECHNIQUE: Mammography was performed with 2D and digital breast tomosynthesis (DBT) images. CAD was utilized. BREAST PARENCHYMAL COMPOSITION: The breasts are almost entirely fatty. FINDINGS: Bilateral There is no suspicious mass, calcification, or architectural distortion in either breast.The are benign right breast calcifications. us Self Screening Mammogram IMG MAMMO PROCEDURES Fi nal Result * Colonoscopy (03/04/2022) Anatomical Region Laterality Modality Other us Patt Erickson MD ENDOSCOPY PROCEDURES Final Result * PAP SMEAR WITH HPV (08/15/2016) Pap smear Normal us Historical Provider HEALTH MAINTENANCE Final Result from Last 3 Months or Most Recently Relevant to Health Maintenance Insurance [facility] HMO/PPO Address: [address] [address] [place] [address] [employer]BS [employer]AL Advance Directives For more information, please contact: [phone] * Full Code (Latest Code Status on File) Date Activated Date Inactivated Comments 12/22/2017 12:52 PM 12/22/2017 5:32 PM Care Teams Manager Talent Acquisition Relationship Specialty Start Date End Date Patt Erickson MD [address] [address] PCP - General 01/06/16 Ruth Carroll DO [address] [address] Consulting Physician Cardiology 05/18/17
--- OUTSIDE RECORDS SUMMARY | 2024-11-03 07:34 | XMS_ITS | Encounter Summary ---
Author Organization [facility] Address [address] [place] [address] Care Team Providers Care Welding Machine Operator Friction Name Role Phone Patt Erickson MD Primary Care Provider Ruth Carroll DO Unavailable [phone] Reason for Visit * Reason Onset Date Comments Medical Question/Miscellaneous 09/15/2024 Encounter Details Date Type Department Care Team (Late st Contact Info) Description 09/15/2024 Telephone [facility] Primary Care at [facility] [address] [facility] [address] [place] [phone] Patt Erickson MD [address] [place] [address] [address] [address] Medical Question/Miscellaneous Social History Tobacco Use Types Packs/Day Years [...] on file Legal Sex Female 4:16 AM SCANNING MANAGER Gender Identity Female 03/08/2022 7:49 PM SCANNING MANAGER Sexual Orientation Not on file 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
[2024-11-03 08:45] LABS: CRP 1.1 mg/dL (<1.0)
== END 2024-11-03 07:28 | disposition home or self-care (01) ==
PROVIDERS: PCP Internal Medicine; Visit Provider Orthopaedic Surgery
DX: M25.462 Effusion, left knee (principal); Z96.652 Presence of left artificial knee joint
CPT/HCPCS: 36415; 73562; 85652; 86140